=== PATIENT | female | born 1935 | race Caucasian/White ===

== ENCOUNTER 2016-10-18 12:11 | Outpatient (CLI) | payer MEDICARE, OTHER ==
--- NOTE | 2016-10-18 17:07 | Mammography Report ---
DIGITAL DIAGNOSTIC BILATERAL MAMMOGRAM: 10/18/2016 CLINICAL INDICATION: Right breast pain. The patient described the pain as radiating from the fingers throughout the lateral right breast, so no marker was placed. TECHNIQUE: Bilateral CC, MLO, right true lateral views. COMPARISON: 10/16/2014 The breasts demonstrate scattered fibroglandular densities bilaterally. Coarse and punctate, typical ly benign calcifications are present. No suspicious masses, clustered microcalcifications, or region s of architectural distortion are identified. IMPRESSION: BENIGN FINDINGS. RECOMMENDATION: ROUTINE ANNUAL SCREENING UNLESS OTHERWISE CLINICALLY INDICATED. BIRADS CATEGORY: 2, BENIGN FINDINGS. STANDARD QUALIFYING STATEMENTS 1. This examination was reviewed with the aid of Computed-Aided Detection (CAD). 2. A negative or benign imaging report should not delay biopsy if clinically suspicious findings are present. Consider surgical consultation if warranted. More than 5% of cancers are not identified b y imaging. 3. Dense breasts may obscure an underlying neoplasm. JOB #: [id number] EXT JOB #:[id number]
== END 2016-10-18 12:12 | disposition home or self-care (01) ==
LOC: DI 12:11
PROVIDERS: ATTEND Internal Medicine
DX: N64.4 Mastodynia (principal)
CPT/HCPCS: 77066

== ENCOUNTER 2016-11-06 06:50 | Outpatient (CLI) | payer MEDICARE, OTHER | END 2016-11-06 06:51 | disposition home or self-care (01) | LOC: EMS 06:50 | PROVIDERS: ATTEND Surgery | DX: S09.90XA Unspecified injury of head, initial encounter (principal); W01.198A Fall on same level from slipping, tripping and stumbling with subsequent striking against other object, initial encounter; Y92.012 Bathroom of single-family (private) house as the place of occurrence of the external cause | CPT/HCPCS: A0425; A0429 ==

== ENCOUNTER 2016-11-06 07:06 | Emergency (ER) | payer MEDICARE, OTHER ==
--- NOTE | 2016-11-06 07:19 | ED Physician Documentation ---
PD HPI Fall - Stated complaint Stated Complaint: GLF - Chief complaint Chief Complaint: Ext Problem - History obtained from History obtained from: Patient - History of Present Illness Mechanism of injury: Slipped Fall distance: Standing position Where injury occurred: Home Timing - onset: Today Injury(ies) location: Head, Neck, Left Uppper Extremity Quality of pain: Pain, Throbbing Associated symptoms: Neck pain. No: LOC, AMS, Amnesia, Seizures, Ear drainage, Weakness, Paresthesias, Dyspnea, Nausea / vomiting, Hematemesis, Abdominal distension Symptoms improve with: Rest, Position Worsens with: Movement, Palpation Contributing factors: Other (on plavix). No: Anticoagulated Similar symptoms before: Diagnosis (distal radius fracture) Recently seen: Not recently seen - Additional information Additional information: 81 y/o female got up to go to the bathroom and fell while she was pulling up her nightgown and fell onto the left side of her face and onto her lft wrist. She had no LOC, she does have a stiff neck and she has pain in the left wrist. Review of Systems Constitutional: denies: Fever Eyes: denies: Decreased vision Ears: denies: Ear pain Nose: denies: Congestion Throat: denies: Sore throat Cardiac: denies: Chest pain / pressure Respiratory: denies: Dyspnea, Cough GI: denies: Abdominal Pain, Nausea, Vomiting : denies: Dysuria, Frequency Skin: denies: Rash Musculoskeletal: reports: Neck pain, Extremity pain, Joint pain, Joint swelling. denies: Back pain Neurologic: denies: Generalized weakness, Focal weakness, Numbness PD PAST MEDICAL HISTORY - Past Medical History Cardiovascular: Hypertension, Atrial fibrillation Respiratory: None Neuro: Parkinson's, Other Endocrine/Autoimmune: None GI: None GLOBAL MANAGER: None : None HEENT: None Musculoskeletal: Osteoarthritis Derm: None - Past Surgical History General: Cholecystectomy, Appendectomy HEENT: Tonsil/Adenoidectomy - Present Medications Home Medications: Ambulatory Orders Medication Instructions Recorded Confirmed Acetaminophen with Codeine 0 ml PO Q6HR 09/16/15 11/06/16 [Acetamin-Codein 300-30 mg/12.5] Ascorbic Acid [Vitamin C] 500 mg PO DAILY 09/16/15 11/06/16 Carbidopa/Levodopa 1 tab PO TID 09/16/15 11/06/16 [Carbidopa-Levodopa 25-100 Tab] Cholecalciferol [Vitamin D3] 400 mg ORAL DAILY 09/16/15 11/06/16 Potassium Chloride [Klor-Con M20] 20 meq PO DAILY 09/16/15 11/06/16 Propranolol [Inderal] 10 mg ORAL DAILY 09/16/15 11/06/16 amLODIPine [Norvasc] 2.5 mg PO DAILY 09/16/15 11/06/16 Acetaminophen 500 mg PO DAILY 12/13/15 11/06/16 Cetirizine [ZyrTEC] 10 mg PO DAILY 12/13/15 11/06/16 Clopidogrel [Plavix] 75 mg PO DAILY 12/13/15 11/06/16 Diazepam 5 mg PO Q6HR 12/13/15 11/06/16 Furosemide 20 mg PO DAILY 12/13/15 11/06/16 Lisinopril 5 mg PO DAILY 12/13/15 11/06/16 Acetaminophen/Cod 300/30 [Tylenol 1 each PO Q4-6H PRN #20 tablet 11/06/16 #3] - Allergies Allergies/Adverse Reactions: Allergies Allergy/AdvReac Type Severity Reaction Status Date / Time adhesive tape Allergy Unknown Verified 09/16/15 12:22 aspirin Allergy Unknown Verified 09/16/15 12:22 gabapentin [From Neurontin] Allergy Unknown Verified 09/16/15 12:22 hydromorphone Allergy Unknown Verified 09/16/15 12:22 morphine Allergy Unknown Verified 09/16/15 12:22 Sulfa (Sulfonamide Allergy Unknown Verified 09/16/15 12:22 Antibiotics) - Social History Does the pt smoke?: No Smoking Status: Unknown if ever smoked Does the pt drink ETOH?: No Does the pt have substance abuse?: No - Immunizations Immunizations are current?: Yes - POLST Patient has POLST: Yes PD ED PE NORMAL - Vitals Vital signs reviewed: Yes (hypertension ) - General General: No acute distress, Well developed/nourished - HEENT HEENT: PERRL, EOMI - Neck Neck: Other (The neck is "stiff" and without bony tenderness) - Cardiac Cardiac: RRR, No murmur - Respiratory Respiratory: No respiratory distress, Clear bilaterally - Abdomen Abdomen: Soft, Non tender - Back Back: No CVA TTP - Derm Derm: Normal color, Warm and dry, No rash - Extremities Extremities: Other (There is trace edema bilaterally with superficial erythema. There is tenderness to the dorsal wrist on the left with swelling and decreased ROM. ) - Neuro Neuro: No motor deficit, No sensory deficit - Psych Psych: Normal mood, Normal affect Results - Vitals Vitals: Vital Signs - 24 hr 11/06/16 11/06/16 07:08 10:44 Temperature 36.1 C L Heart Rate 68 71 Respiratory 18 16 Rate Blood Pressure 161/129 H 158/91 H O2 Saturation 98 95 Oxygen O2 Source Room air - Labs Labs: Laboratory Tests 11/06/16 08:15 Urine Color YELLOW Urine Clarity CLEAR Urine pH 5.5 Ur Specific Blevins 1.010 Urine Protein NEGATIVE Urine Glucose (UA) NEGATIVE Urine Ketones NEGATIVE Urine Occult Blood NEGATIVE Urine Nitrite NEGATIVE Urine Bilirubin NEGATIVE Urine Urobilinogen 0.2 (NORMAL) Ur Leukocyte Esterase NEGATIVE Ur Microscopic Review NOT INDICATED Urine Culture Comments NOT INDICATED - Rads (name of study) CT head without Radiology: Prelim report reviewed (Impression: 1. No acute intracranial abnormality. Specifically, no evidence of intracranial hemorrhage or fracture. 2. Chronic sinusitis of the right maxillary sinus.), EMP read indepedently, See rad report Cervical spine without Radiology: Prelim report reviewed (Impression: no acute fracture or malalginment. 2. Degenerative changes result in the following: C2-C3 mild to moderate narrowing of the neural foraminal bilaterally. C3-C4 mild narrowing of the neural foraminal bilaterally C4-C5 mild narrowing of the neural foraminal bilaterally C5-C6 mild narrowing of the bony central canal. Moderate narrowing of the right neural foramen and mild narrowing on the left. 3. Evidence of solid bony fusion at C3-4 and C5-6.), EMP read indepedently, See rad report lft hand Radiology: Prelim report reviewed (Impression: 1. Acute, oblique fractures of left third metacarpal and distal fifth metacarpal diaphyses with mild displacement. 2. Question of nondisplaced mid to distal fourth metacarpal diaphyseal fracture. 3. Old ulnar styloid avulsion. 4. Diffuse osteopenia. 5. Degenerative changes.) hips and pelvis Radiology: Prelim report reviewed (Impression: 1. Bilateral hip and lower lumbar spine degenerative changes. 2. No fracture demonstrated.) Left wrist Radiology: Prelim report reviewed (Impression: 1. Acute, oblique fractures of the left third and fifth metacarpal diaphyses with mild displaced. 2. Question nondisplaced fourth metacarpal diaphyseal fracture. 2. Old ulnar styloid avulsion. 4. Degenerative changes.), EMP read indepedently, See rad report Procedures - Splint (location) Left hand Splint applied by: Tech Type of splint: Fiberglass, Volar cock up Other: Patient tolerated well, No complications, Neurovascular intact, Good alignment PD MEDICAL DECISION MAKING - ED course Complexity details: reviewed old records, reviewed results, re-evaluated patient , considered differential, d/w patient, d/w family ED course: 81 y/o female with a FOOSH has a hand fracture and she is placed into a splint to followup with her orthopod. Departure - Departure Disposition: 01 Home, Self Care Clinical Impression: Hand fracture, left Qualifiers: Encounter type: initial encounter Fracture type: closed Qualified Code(s): S62.92XA - Unspecified fracture of left wrist and hand, initial encounter for closed fracture Condition: Stable Instructions: ED Fx Hand Closed Follow-Up: Sean Waldron MD [Primary Care Provider] - SCOTTY SPANGLER [Physician No Access] - Prescriptions: Acetaminophen/Cod 300/30 [Tylenol #3] 1 each PO Q4-6H PRN #20 tablet PRN Reason: Pain Discharge Date/Time: 11/06/16 10:45
--- NOTE | 2016-11-06 08:00 | CT Preliminary Report ---
Exam: CT Head W/O IMPRESSION: 1. No acute intracranial abnormality. Specifically, no evidence of intracranial hemorrhage or fractur e. 2. Chronic sinusitis of the right mastoid sinus. [facility] SITE ID: [id number]
--- NOTE | 2016-11-06 08:03 | CT Report ---
EXAM: CT HEAD EXAM DATE: 11/06/2016 07:37 AM. CLINICAL HISTORY: 81-year-old woman status post fall with head injury. COMPARISON: None. TECHNIQUE: Multiaxial CT images were obtained from the foramen magnum to the vertex. IV contrast: Non e. Reformats: Coronal. In accordance with CT protocol optimization, one or more of the following dose reduction techniques w ere utilized for this exam: automated exposure control, adjustment of mA and/or KV based on patient s ize, or use of iterative reconstructive technique. FINDINGS: Parenchyma: No evidence of acute infarct, hemorrhage, or mass lesion. The operating room and demonstr ate mild periventricular hypoattenuation, a common finding in this age group. Ventricles and Extra-axial Spaces: Ventricles are symmetric and normal in size. CSF density extra-axi al spaces are prominent along the frontal lobes, greatest along the right anterior falx, consistent w ith cerebral volume loss and possibly underlying arachnoid cyst. No evidence of hemorrhage. Orbits: Unremarkable. Sinuses: The right maxillary sinus demonstrate mucosal thickening with hyperdense material and surrou nding hyperostosis, most consistent with chronic sinusitis and inspissated secretions or possibly fun gal infection. The remaining paranasal sinuses and mastoid air cells are clear. Extracranial Soft Tissues and Bones: Soft tissues are unremarkable. No fractures. IMPRESSION: 1. No acute intracranial abnormality. Specifically, no evidence of intracranial hemorrhage or fractur e. 2. Chronic sinusitis of the right mastoid sinus. [facility] Referring Provider Line: [phone] SITE ID: [id number]
--- NOTE | 2016-11-06 08:16 | CT Report ---
EXAM: CT CERVICAL SPINE WITHOUT CONTRAST DATE: 11/06/2016 07:43 AM HISTORY: 81-year-old woman status post fall with head injury and neck pain . COMPARISONS: None. TECHNIQUE: Thin-section axial images were acquired of the cervical spine without contrast. Post-proce ssing: Coronal and sagittal reformats. Other: None. In accordance with CT protocol optimization, one or more of the following dose reduction techniques w ere utilized for this exam: automated exposure control, adjustment of mA and/or KV based on patient s ize, or use of iterative reconstructive technique. FINDINGS: Alignment: No acute malalignment. Mild convex right curvature is present. No significant spondylolist hesis. Bones: No fracture or bone lesion. There is evidence of solid bony fusion of the posterior elements o f C3-C4 and across the disk space and right facet at C5-C6. Interspace Levels/Facets: C1-C2: Unremarkable. C2-C3: No significant central canal stenosis. Uncovertebral hypertrophy and facet hypertrophy result in mild to moderate narrowing of the neural foramina bilaterally. C3-C4: No significant central canal stenosis. Mild uncovertebral hypertrophy and prominent facet hype rtrophy result in mild narrowing of the neural foramina bilaterally. C4-C5: No significant central canal stenosis. Mild uncovertebral hypertrophy and prominent facet hype rtrophy result in mild narrowing of the neural foramina bilaterally. C5-C6: There is bony fusion across the disk space. Posterior osteophyte results in mild narrowing of the bony central canal. Uncovertebral hypertrophy and prominent facet hypertrophy result in moderate narrowing of the right neural foramen and mild narrowing on the left. C6-C7: Facet hypertrophy and uncovertebral hypertrophy are present without significant narrowing of t he bony central canal and neural foramina. C7-T1: Unremarkable. Musculature: Normal. No fatty atrophy. Other: The paravertebral and prevertebral soft tissues are normal. The lung apices are clear. IMPRESSION: 1. No acute fracture or malalignment. 2. Degenerative changes result in the following: -C2-C3: Mild/moderate narrowing of the neural foramina bilaterally. -C3-C4: Mild narrowing of the neural foramina bilaterally. -C4-C5: Mild narrowing of the neural foramina bilaterally. -C5-C6: Mild narrowing of the bony central canal. Moderate narrowing of the right neural foramen and mild narrowing on the left. 3. Evidence of solid bony fusion at C3-C4 and C5-C6. [facility] Referring Provider Line: [phone] SITE ID: [id number]
[2016-11-06 08:28] LABS: BILIRUBIN,URINE NEGATIVE (NEGATIVE); PH,URINE 5.5 PH (5.0-7.5)
[2016-11-06 08:30] LABS: UA CHARGE (STRIP ONLY) YES; UR CULTURE IF IND NOT INDICATED
--- NOTE | 2016-11-06 08:41 | XRAY Preliminary Report ---
Exam: XR Wrist 4 View LT IMPRESSION: 1. Acute, oblique fractures of left third and fifth metacarpal diaphyses with mild displacement. 2. Question nondisplaced fourth metacarpal diaphyseal fracture. 3. Old ulnar styloid avulsion. 4. Degenerative changes. [facility] SITE ID: [id number]
--- NOTE | 2016-11-06 08:44 | XRAY Report ---
EXAM: LEFT WRIST RADIOGRAPHY EXAM DATE: 11/06/2016 08:15 AM. CLINICAL HISTORY: Fall wrist pain . COMPARISON: None. TECHNIQUE: 4 views. FINDINGS: Bones: Probable old nondisplaced ulnar styloid avulsion. Acute, oblique fractures of the left third and fifth metacarpal diaphyses with mild displacement. Que stion nondisplaced fourth metacarpal diaphyseal fracture. Joints: Narrowing of scaphomultangular joint space. Spurs along first carpometacarpal joint space. Soft Tissues: TFCC calcification. IMPRESSION: 1. Acute, oblique fractures of left third and fifth metacarpal diaphyses with mild displacement. 2. Question nondisplaced fourth metacarpal diaphyseal fracture. 3. Old ulnar styloid avulsion. 4. Degenerative changes. [facility] Referring Provider Line: [phone] SITE ID: [id number]
--- NOTE | 2016-11-06 08:50 | XRAY Preliminary Report ---
Exam: XR Hand 3 View LT IMPRESSION: 1. Acute, oblique fractures of left mid third metacarpal and distal fifth metacarpal diaphyses with m ild displacement. 2. Question nondisplaced mid to distal fourth metacarpal diaphyseal fracture. 3. Old ulnar styloid avulsion. 4. Diffuse osteopenia. 5. Degenerative changes. [facility] SITE ID: [id number]
--- NOTE | 2016-11-06 08:53 | XRAY Report ---
EXAM: LEFT HAND RADIOGRAPHY EXAM DATE: 11/06/2016 08:15 AM. CLINICAL HISTORY: Fall middle finger pain. COMPARISON: None. TECHNIQUE: 3 views. FINDINGS: Bones: Oblique fractures of the left mid third metacarpal and distal fifth metacarpal diaphyses wit h mild displacement. Question nondisplaced fourth metacarpal diaphyseal fracture. Diffuse osteopenia. Probable old ulnar styloid avulsion. Joints: Degenerative changes of left first carpometacarpal and first carpal metacarpal joints, with j oint space narrowing and subchondral sclerosis. First CMC osteophytes. Narrowing of scaphomultangular joint. Soft Tissues: Diffuse left hand soft tissue swelling. IMPRESSION: 1. Acute, oblique fractures of left mid third metacarpal and distal fifth metacarpal diaphyses with m ild displacement. 2. Question nondisplaced mid to distal fourth metacarpal diaphyseal fracture. 3. Old ulnar styloid avulsion. 4. Diffuse osteopenia. 5. Degenerative changes. [facility] Referring Provider Line: [phone] SITE ID: [id number]
--- NOTE | 2016-11-06 08:55 | XRAY Preliminary Report ---
Exam: XR Hip w/Pelvis 2-3V LT IMPRESSION: 1. Bilateral hip and lower lumbar spine degenerative changes. 2. No fracture demonstrated. [facility] SITE ID: [id number]
--- NOTE | 2016-11-06 08:57 | XRAY Report ---
EXAM: LEFT HIP AND PELVIS RADIOGRAPHY EXAM DATE: 11/06/2016 08:15 AM. HISTORY: Fall this morning with left groin pain . COMPARISONS: None. TECHNIQUE: 1 view of the pelvis and 1 view of the hip. FINDINGS: Bones: No fracture demonstrated. Joints: At least mild bilateral hip joint space narrowing. No dislocation. Loss of disk space height in visualized lower lumbar spine. Soft Tissues: Normal. No soft tissue swelling. IMPRESSION: 1. Bilateral hip and lower lumbar spine degenerative changes. 2. No fracture demonstrated. [facility] Referring Provider Line: [phone] SITE ID: [id number]
[2016-11-06] MEDS ORDERED: ACETAMINOPHEN/CODEINE 300 MG/30 MG TABLET PO STA (10:37)
[2016-11-06] MEDS ORDERED: ACETAMINOPHEN/CODEINE 300 MG/30 MG TABLET PO ONE (10:41)
[2016-11-06 10:45] VITALS: BP 158/91
== END 2016-11-06 10:45 | disposition home or self-care (01) ==
LOC: ED 07:06
DX: S62.393A Other fracture of third metacarpal bone, left hand, initial encounter for closed fracture (principal); S62.395A Other fracture of fourth metacarpal bone, left hand, initial encounter for closed fracture; S62.397A Other fracture of fifth metacarpal bone, left hand, initial encounter for closed fracture; W01.0XXA Fall on same level from slipping, tripping and stumbling without subsequent striking against object, initial encounter; Y92.018 Other place in single-family (private) house as the place of occurrence of the external cause; I10 Essential (primary) hypertension; I48.91 Unspecified atrial fibrillation; G20 Parkinson's disease; M19.90 Unspecified osteoarthritis, unspecified site
CPT/HCPCS: 29125; 51701; 70450; 72125; 73110; 73130; 73502; 81003; 99283; 99284; A9270; 81001; 87086

== ENCOUNTER 2016-11-15 11:41 | Outpatient (CLI) | payer MEDICARE, OTHER ==
--- NOTE | 2016-11-15 13:57 | XRAY Report ---
LEFT HIP AND PELVIS: 11/15/2016 CLINICAL INDICATION: Fall, pain. FINDINGS: Frontal view of the hips and pelvis and cross-table lateral view of the left hip were obta ined. Cross-table lateral view was suboptimal, due to body habitus. Mild osteoarthritis is present. T here is no evidence of fracture or dislocation on the views provided. The visualized bowel gas patter n is unremarkable. IMPRESSION: MILD OSTEOARTHRITIS. JOB #: [id number] EXT JOB #:[id number]
== END 2016-11-15 11:42 | disposition home or self-care (01) ==
LOC: DI 11:41
PROVIDERS: ATTEND Physician Assistant Medical
DX: M16.12 Unilateral primary osteoarthritis, left hip (principal)

== ENCOUNTER 2016-12-10 21:21 | Outpatient (CLI) | payer MEDICARE, OTHER | END 2016-12-10 23:59 | disposition EMS.NT | LOC: EMS 21:21 | PROVIDERS: ATTEND Surgery | DX: Z03.89 Encounter for observation for other suspected diseases and conditions ruled out (principal) ==

== ENCOUNTER 2016-12-28 09:10 | Outpatient (CLI) | payer MEDICARE, OTHER | END 2016-12-28 09:11 | disposition critical access hospital (66) | LOC: EMS 09:10 | PROVIDERS: ATTEND Surgery | DX: R53.83 Other fatigue (principal); R47.81 Slurred speech | CPT/HCPCS: A0425; A0429 ==

== ENCOUNTER 2016-12-28 09:24 | Emergency (ER) | payer MEDICARE, OTHER ==
--- NOTE | 2016-12-28 09:35 | ED Physician Documentation ---
PD HPI FOCAL NEURO - Stated complaint Stated Complaint: STROKE LIKE SYMPTOMS - Chief complaint Chief Complaint: Neuro - History obtained from History obtained from: Patient, EMS - History of Present Illness Timing - onset: Today Timing - duration: Hours Timing - details: Gradual onset, Now resolved Severity of deficit: Moderate Weakness: No: Face, Arm, Hand, Leg, Foot, Right, Left Numbness: No: Face, Arm, Hand, Leg, Foot, Right, Left Associated symptoms: No: Headache, Nausea / vomiting, Seizure, Syncope, Fall, Head injury, Chest pain, Neck pain, Back pain, Fever Contributing factors: negative: Anticoagulated Baseline status: positive: A&OX3, ambulatory, indep Similar symptoms before: Has not had sx before Recently seen: Other (recently started new medication.) - Additional information Additional information: 81-year-old female was in her usual state yesterday when she awoke this morning she had some slurred speech and has resolved in route to the hospital. She has recently had a medication change 1 of her Parkinson's medicines with a titrating up on the dose. She did not feel that she was having problems with this medicine prior to this episode today. She does appear to have recovered completely and there is no evidence of residual effect. Review of Systems Constitutional: reports: Fatigue. denies: Fever, Chills Eyes: denies: Decreased vision Ears: denies: Ear pain Nose: denies: Congestion Throat: denies: Sore throat Cardiac: denies: Chest pain / pressure, Palpitations Respiratory: denies: Dyspnea, Cough GI: denies: Abdominal Swelling, Nausea, Vomiting, Constipation, Diarrhea : denies: Dysuria, Frequency Skin: denies: Rash Musculoskeletal: denies: Neck pain, Back pain Neurologic: reports: Generalized weakness, Difficulty speaking, Altered mental status. 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 : None HEENT: None Musculoskeletal: Osteoarthritis Derm: None - Past Surgical History General: Cholecystectomy, Appendectomy HEENT: Tonsil/Adenoidectomy - Present Medications Home Medications: Ambulatory Orders Medication Instructions Recorded Confirmed Acetaminophen with Codeine 0 ml PO Q6HR 09/16/15 11/06/16 [Acetamin-Codein 300-30 mg/12.5] Ascorbic Acid [Vitamin C] 500 mg PO DAILY 09/16/15 11/06/16 Carbidopa/Levodopa 1 tab PO TID 09/16/15 11/06/16 [Carbidopa-Levodopa 25-100 Tab] Cholecalciferol [Vitamin D3] 400 mg ORAL DAILY 09/16/15 11/06/16 Potassium Chloride [Klor-Con M20] 20 meq PO DAILY 09/16/15 11/06/16 Propranolol [Inderal] 10 mg ORAL DAILY 09/16/15 11/06/16 amLODIPine [Norvasc] 2.5 mg PO DAILY 09/16/15 11/06/16 Acetaminophen 500 mg PO DAILY 12/13/15 11/06/16 Cetirizine [ZyrTEC] 10 mg PO DAILY 12/13/15 11/06/16 Clopidogrel [Plavix] 75 mg PO DAILY 12/13/15 11/06/16 Diazepam 5 mg PO Q6HR 12/13/15 11/06/16 Furosemide 20 mg PO DAILY 12/13/15 11/06/16 Lisinopril 5 mg PO DAILY 12/13/15 11/06/16 Acetaminophen/Cod 300/30 [Tylenol 1 each PO Q4-6H PRN #20 tablet 11/06/16 #3] Ciprofloxacin HCl [Cipro] 500 mg PO BID #14 tablet 12/28/16 - Allergies Allergies/Adverse Reactions: Allergies Allergy/AdvReac Type Severity Reaction Status Date / Time adhesive tape Allergy Unknown Verified 09/16/15 12:22 aspirin Allergy Unknown Verified 09/16/15 12:22 gabapentin [From Neurontin] Allergy Unknown Verified 09/16/15 12:22 hydromorphone Allergy Unknown Verified 09/16/15 12:22 morphine Allergy Unknown Verified 09/16/15 12:22 Sulfa (Sulfonamide Allergy Unknown Verified 09/16/15 12:22 Antibiotics) - Social History Does the pt smoke?: No Smoking Status: Unknown if ever smoked Does the pt drink ETOH?: No Does the pt have substance abuse?: No - Immunizations Immunizations are current?: Yes - POLST Patient has POLST: Yes PD ED PE NORMAL - Vitals Vital signs reviewed: Yes (hypertensive ) - General General: Alert and oriented X 3, No acute distress, Well developed/nourished - HEENT HEENT: Atraumatic, PERRL, EOMI - Neck Neck: Supple, no meningeal sign - Cardiac Cardiac: RRR, No murmur - Respiratory Respiratory: No respiratory distress, Clear bilaterally - Abdomen Abdomen: Soft, Non tender NIHSS - Level of Consciousness Level of consciousness: (0) Alert, Keenly responsive LOC Questions: (0) Answers both Q's correct LOC Commands: (0) Performs both correctly - Gaze Best Gaze: (0) Normal - Visual Visual: (0) No loss - Facial Palsy Facial Palsy: (0) Normal, symmetrical movement - Motor Arms (both separate) Motor Arm (right): (0) No drift Motor Arm (left): (0) No drift - Motor Legs (both separate) Motor Leg (right): (0) No drift Motor Leg (left): (0) No drift - Limb Ataxia Limb Ataxia: (0) Absent - Sensory Sensory: (0) Normal - Best Language Best Language: (0) No aphasia - Dysarthria Dysarthria: (0) Normal - Extinction and Inattention (formally neg Extinction and inattention: (0) No abnormality - Total Score/Results Total Score/Result: 0 Results - Vitals Vitals: Vital Signs - 24 hr 12/28/16 12/28/16 09:30 12:53 Temperature 36.8 C Heart Rate 70 71 Respiratory 18 19 Rate Blood Pressure 180/94 H 140/58 H O2 Saturation 98 96 Oxygen O2 Source Room air - EKG (time done) 0959 Rate: Rate (enter#) (62) Rhythm: NSR Other comments: Other comments (There is excessive artifact from the tremor of Parkinsons making the tracing uninterpretable. ) Compare to prior EKG: Old EKG unavailable Computer interpretation: Agree with computer - Labs Labs: Laboratory Tests 12/28/16 12/28/16 12/28/16 09:45 09:50 09:50 WBC 6.7 RBC 4.37 Hgb 12.4 Hct 37.5 MCV 85.8 MCH 28.3 MCHC 33.0 RDW 14.6 Plt Count 240 MPV 7.4 L Neut # 3.8 Lymph # 2.1 [place] # 0.6 Eos # 0.2 Baso # 0.0 Absolute Nucleated RBC 0.00 Nucleated RBCs 0.1 Sodium 140 Potassium 4.3 Chloride 103 Carbon Dioxide 29 Anion Gap 8.0 BUN 29 H Creatinine 1.4 H Estimated GFR (MDRD) 36 L Glucose 100 Calcium 9.4 Total Bilirubin 0.4 AST 14 ALT < 10 L Alkaline Phosphatase 75 Troponin I Total Protein 7.0 Albumin 3.9 Globulin 3.1 Albumin/Globulin Ratio 1.3 Lipase 16 L Urine Color YELLOW Urine Clarity HAZY Urine pH 6.0 Ur Specific [place] 1.010 Urine Protein NEGATIVE Urine Glucose (UA) NEGATIVE Urine Ketones NEGATIVE Urine Occult Blood NEGATIVE Urine Nitrite NEGATIVE Urine Bilirubin NEGATIVE Urine Urobilinogen 0.2 (NORMAL) Ur Leukocyte Esterase SMALL H Urine RBC 0-5 Urine WBC 6-10 H Ur Squamous Epith Cells FEW Squamous Urine Bacteria Many H Ur Microscopic Review INDICATED Urine Culture Comments INDICATED 12/28/16 09:50 WBC RBC Hgb Hct MCV MCH MCHC RDW Plt Count MPV Neut # Lymph # [place] # Eos # Baso # Absolute Nucleated RBC Nucleated RBCs Sodium Potassium Chloride Carbon Dioxide Anion Gap BUN Creatinine Estimated GFR (MDRD) Glucose Calcium Total Bilirubin AST ALT Alkaline Phosphatase Troponin I < 0.04 Total Protein Albumin Globulin Albumin/Globulin Ratio Lipase Urine Color Urine Clarity Urine pH Ur Specific [place] Urine Protein Urine Glucose (UA) Urine Ketones Urine Occult Blood Urine Nitrite Urine Bilirubin Urine Urobilinogen Ur Leukocyte Esterase Urine RBC Urine WBC Ur Squamous Epith Cells Urine Bacteria Ur Microscopic Review Urine Culture Comments Procedures - IVC sono (time) 0945 Bedside IVC sono: IVC measures (cm) (1.77), IVC collapsed c insp (cm) (0.82) PD MEDICAL DECISION MAKING - ED course Complexity details: reviewed results, re-evaluated patient, considered differential, d/w patient, d/w family ED course: 81-year-old female with some dysarthria on awakening this morning is now normal and she is found to have urinary tract infection. This is treated in the emergency department with 1 g of Rocephin intravenously she does not have other signs to be concerned about sepsis. And she does want to go home. This does seem reasonable. Her last 3 cultures here grew out organisms sensitive to cipro. One grew out resistant to septra. We will put her on cipro. Departure - Departure Disposition: 01 Home, Self Care Clinical Impression: Parkinsons disease Urinary tract infection Qualifiers: Urinary tract infection type: acute cystitis Hematuria presence: without hematuria Qualified Code(s): N30.00 - Acute cystitis without hematuria Condition: Stable Instructions: ED UTI Cystitis Female Follow-Up: Sean Waldron MD [Primary Care Provider] - Prescriptions: Ciprofloxacin HCl [Cipro] 500 mg PO BID #14 tablet
[2016-12-28 09:55] LABS: BASOPHILS % (AUTO) 0.6 %; EOSINOPHILS # (AUTO) 0.2 10^3/uL (0.0-0.7); EOSINOPHILS % (AUTO) 2.7 %; HCT - HEMATOCRIT 37.5 % (37.0-47.0); HGB - HEMOGLOBIN 12.4 g/dL (12.0-16.0); LYMPHOCYTES # (AUTO) 2.1 10^3/uL (1.5-3.5); LYMPHOCYTES % (AUTO) 31.3 %; MEAN CORPUSCULAR HEMOGLOBIN 28.3 pg (27.0-31.0); MEAN CORPUSCULAR VOLUME 85.8 fL (81.0-99.0); MEAN PLATELET VOLUME 7.4 fL (7.9-10.8); MONOCYTES # (AUTO) 0.6 10^3/uL (0.0-1.0); MONOCYTES % (AUTO) 8.9 %; NEUTROPHILS # (AUTO) 3.8 10^3/uL (1.5-6.6); NEUTROPHILS % (AUTO) 56.5 %; NUCLEATED RED BLOOD CELLS AUTO 0.1 /100WBC; RED BLOOD COUNT 4.37 10^6/uL (4.20-5.40); RED CELL DISTRIBUTION WIDTH 14.6 % (12.0-15.0); UNCORRECTED WHITE BLOOD COUNT 6.7 x10^3/uL; WHITE BLOOD COUNT 6.7 x10^3/uL (4.8-10.8)
[2016-12-28 10:08] LABS: ALBUMIN/GLOBULIN RATIO 1.3 (1.0-2.2); BILIRUBIN,TOTAL 0.4 mg/dL (0.2-1.0); BUN - BLOOD UREA NITROGEN 29 mg/dL (6-20); CALCIUM 9.4 mg/dL (8.5-10.3); CARBON DIOXIDE - CO2 29 mmol/L (21-32); CHLORIDE 103 mmol/L (101-111); CREATININE 1.4 mg/dL (0.4-1.0); GFR - MDRD 36 (>89); GLUCOSE 100 mg/dL (70-100); LIPASE 16 U/L (22-51); POTASSIUM 4.3 mmol/L (3.5-5.0); SODIUM 140 mmol/L (135-145)
[2016-12-28 10:09] LABS: BILIRUBIN,URINE NEGATIVE (NEGATIVE)
[2016-12-28 10:21] LABS: UA w/ MICROSCOPIC CHARGE YES
[2016-12-28 10:25] LABS: UR CULTURE IF IND INDICATED
[2016-12-28] MEDS ORDERED: cefTRIAXone 1 GM in SODIUM CHLORIDE 0.9% MINIBAG 100 ML IV STA (10:53)
[2016-12-28] MEDS ORDERED: TETANUS/DIPHTHERIA/PERTUSSIS 0.5 ML SYRINGE IM ONE (10:56)
--- NOTE | 2016-12-28 10:58 | CT Preliminary Report ---
Exam: CT Head W/O IMPRESSION: 1. No acute intracranial abnormality identified. No significant change from the prior study. [facility] SITE ID: [id number]
--- NOTE | 2016-12-28 11:00 | CT Report ---
EXAM: CT HEAD EXAM DATE: 12/28/2016 10:41 AM. CLINICAL HISTORY: Transient dysarthria. COMPARISON: CT 11/06/2016. TECHNIQUE: Multiaxial CT images were obtained from the foramen magnum to the vertex. IV contrast: Non e. Reformats: Coronal. In accordance with CT protocol optimization, one or more of the following dose reduction techniques w ere utilized for this exam: automated exposure control, adjustment of mA and/or KV based on patient s ize, or use of iterative reconstructive technique. FINDINGS: Parenchyma: Evidence of diffuse parenchymal volume loss and small amount of low attenuation in the pe riventricular white matter. No acute intracranial abnormality identified. No acute hemorrhage, mass e ffect, or midline shift. Extraaxial Spaces: Evidence of diffuse parenchymal volume loss. No acute extra-axial collection. Ventricles: Appropriate in size and configuration for the degree of volume loss. Sinuses: Chronic partially opacified right maxillary sinus again noted, otherwise the visualized para nasal sinuses and mastoid air cells appear well-aerated. Bones: No depressed skull fracture. Other: None. IMPRESSION: 1. No acute intracranial abnormality identified. No significant change from the prior study. [facility] Referring Provider Line: [phone] SITE ID: [id number]
[2016-12-28 14:14] VITALS: BP 135/75
== END 2016-12-28 14:14 | disposition home or self-care (01) ==
LOC: EDUNIT# → ED 09:24
DX: G20 Parkinson's disease (principal); N30.00 Acute cystitis without hematuria; I10 Essential (primary) hypertension; I48.91 Unspecified atrial fibrillation
CPT/HCPCS: 36415; 70450; 80053; 81001; 81003; 83690; 84484; 85025; 87086; 93005; 96374; 99284

== ENCOUNTER 2017-02-08 08:34 | Outpatient (CLI) | payer MEDICARE, OTHER | END 2017-02-08 08:35 | disposition critical access hospital (66) | LOC: EMS 08:34 | PROVIDERS: ATTEND Surgery | DX: R40.4 Transient alteration of awareness (principal) | CPT/HCPCS: A0425; A0427 ==

== ENCOUNTER 2017-02-08 08:48 | Emergency (ER) | payer MEDICARE, OTHER ==
--- NOTE | 2017-02-08 09:01 | ED Physician Documentation ---
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 HEENT: None Musculoskeletal: Osteoarthritis Derm: None - Past Surgical History Past Surgical History: Yes General: Cholecystectomy, Appendectomy HEENT: Tonsil/Adenoidectomy - Present Medications Home Medications: Ambulatory Orders Medication Instructions Recorded Confirmed Acetaminophen with Codeine 0 ml PO Q6HR 09/16/15 11/06/16 [Acetamin-Codein 300-30 mg/12.5] Ascorbic Acid [Vitamin C] 500 mg PO DAILY 09/16/15 11/06/16 Carbidopa/Levodopa 1 tab PO TID 09/16/15 11/06/16 [Carbidopa-Levodopa 25-100 Tab] Cholecalciferol [Vitamin D3] 400 mg ORAL DAILY 09/16/15 11/06/16 Potassium Chloride [Klor-Con M20] 20 meq PO DAILY 09/16/15 11/06/16 Propranolol [Inderal] 10 mg ORAL DAILY 09/16/15 11/06/16 amLODIPine [Norvasc] 2.5 mg PO DAILY 09/16/15 11/06/16 Acetaminophen 500 mg PO DAILY 12/13/15 11/06/16 Cetirizine [ZyrTEC] 10 mg PO DAILY 12/13/15 11/06/16 Clopidogrel [Plavix] 75 mg PO DAILY 12/13/15 11/06/16 Diazepam 5 mg PO Q6HR 12/13/15 11/06/16 Furosemide 20 mg PO DAILY 12/13/15 11/06/16 Lisinopril 5 mg PO DAILY 12/13/15 11/06/16 Acetaminophen/Cod 300/30 [Tylenol 1 each PO Q4-6H PRN #20 tablet 11/06/16 #3] Ciprofloxacin HCl [Cipro] 500 mg PO BID #14 tablet 12/28/16 Cephalexin [Keflex] 500 mg PO Q6H #28 capsule 02/08/17 - Allergies Allergies/Adverse Reactions: Allergies Allergy/AdvReac Type Severity Reaction Status Date / Time adhesive tape Allergy Unknown Verified 09/16/15 12:22 aspirin Allergy Unknown Verified 09/16/15 12:22 gabapentin [From Neurontin] Allergy Unknown Verified 09/16/15 12:22 hydromorphone Allergy Unknown Verified 09/16/15 12:22 morphine Allergy Unknown Verified 09/16/15 12:22 Sulfa (Sulfonamide Allergy Unknown Verified 09/16/15 12:22 Antibiotics) - Social History Does the pt smoke?: No Smoking Status: Unknown if ever smoked Does the pt drink ETOH?: No Does the pt have substance abuse?: No - Immunizations Immunizations are current?: Yes - POLST Patient has POLST: Yes PD ED PE NORMAL - Vitals Vital signs reviewed: Yes - General General: No: Alert and oriented X 3 (X 1 (name)) - HEENT HEENT: PERRL - Neck Neck: Supple, no meningeal sign - Cardiac Cardiac: RRR - Respiratory Respiratory: No respiratory distress, Clear bilaterally - Abdomen Abdomen: Soft, Non tender - Derm Derm: Normal color - Extremities Extremities: No deformity - Neuro Neuro: Other (pt very lethargic but will open eyes to voice and tells me her name, R sided facial droop, slurred speech, PERRL, 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 and 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 from babinski, unable to lift either arm or leg, unable to assess sensation or visual nicolas 2/2 pt lethargy and diff following commands) Results - Vitals Vitals: Vital Signs - 24 hr 02/08/17 02/08/17 02/08/17 08:55 09:44 10:37 Temperature 36.4 C L Heart Rate 67 70 76 Respiratory 18 18 14 Rate Blood Pressure 128/60 150/72 H 131/66 H O2 Saturation 98 99 98 02/08/17 10:51 Temperature Heart Rate 79 Respiratory 18 Rate Blood Pressure 114/50 L O2 Saturation 97 Oxygen O2 Source Room air - EKG (time done) 0925 Rate: Rate (enter#) Rhythm: NSR, Other (PACs) Ischemia: Other (low voltage, no acute ischemia) - Labs Labs: Laboratory Tests 02/08/17 02/08/17 02/08/17 09:23 09:23 09:23 WBC 7.1 RBC 4.20 Hgb 12.2 Hct 36.9 L MCV 87.8 MCH 29.0 MCHC 33.0 RDW 15.6 H Plt Count 227 MPV 7.7 L Neut # 4.1 Lymph # 2.0 [place] # 0.6 Eos # 0.2 Baso # 0.1 Absolute Nucleated RBC 0.00 Nucleated RBCs 0.0 PT 11.0 INR 1.0 APTT 23.7 L Sodium 142 Potassium 4.6 Chloride 104 Carbon Dioxide 30 Anion Gap 8.0 BUN 29 H Creatinine 1.4 H Estimated GFR (MDRD) 36 L Glucose 102 H Calcium 9.5 Urine Color Urine Clarity Urine pH Ur Specific [place] Urine Protein Urine Glucose (UA) Urine Ketones Urine Occult Blood Urine Nitrite Urine Bilirubin Urine Urobilinogen Ur Leukocyte Esterase Urine RBC Urine WBC Ur Squamous Epith Cells Urine Bacteria Ur Microscopic Review Urine Culture Comments 02/08/17 09:36 WBC RBC Hgb Hct MCV MCH MCHC RDW Plt Count MPV Neut # Lymph # [place] # Eos # Baso # Absolute Nucleated RBC Nucleated RBCs PT INR APTT Sodium Potassium Chloride Carbon Dioxide Anion Gap BUN Creatinine Estimated GFR (MDRD) Glucose Calcium Urine Color YELLOW Urine Clarity CLEAR Urine pH 6.5 Ur Specific [place] 1.010 Urine Protein NEGATIVE Urine Glucose (UA) NEGATIVE Urine Ketones NEGATIVE Urine Occult Blood NEGATIVE Urine Nitrite POSITIVE H Urine Bilirubin NEGATIVE Urine Urobilinogen 0.2 (NORMAL) Ur Leukocyte Esterase MODERATE H Urine RBC 0-5 Urine WBC >25 H Ur Squamous Epith Cells FEW Squamous Urine Bacteria Moderate H Ur Microscopic Review INDICATED Urine Culture Comments INDICATED - Rads (name of study) CTH Radiology: See rad report (no bleed, no acute, atrophy) CXR Radiology: See rad report (NACPD) PD MEDICAL DECISION MAKING - ED course ED course: right facial droop, slurred speech AMS neg CT suspect pt had a CVA last nl unknown so not a TPA candidate will admit for MRI tele echo etc already on plavix also a UTI - so possible has AMS due to UTI and pre-existing [place] but that hx is not certain despite attempts to clarify renal insuff not new family arrived pt much better now awake and alert has slight facial asymmetry but family states baseline otherwise nl neruo exam NIHSS now so likely baseline [place] with UTI/lethargy d/w pt and family a) admit for IV ab and perhaps TIA work up b) go home on oral ab to her SNF who can watch her carefully pt and family choose plan B Departure - Departure Disposition: 01 Home, Self Care Clinical Impression: Urinary tract infection Qualifiers: Urinary tract infection type: site unspecified Hematuria presence: without hematuria Qualified Code(s): N39.0 - Urinary tract infection, site not specified Condition: Fair Instructions: ED UTI Cystitis Female Follow-Up: Sean Waldron MD [Primary Care Provider] - Prescriptions: Cephalexin [Keflex] 500 mg PO Q6H #28 capsule Comments: Please follow up with Dr Waldron for a recheck early next week Return if worse And please get your blood pressure rechecked - it was high today Discharge Date/Time: 02/08/17 11:05 NIHSS - Time Time: 08:55 - Level of Consciousness Level of consciousness: (2) Not alert, requires repeated stimulation to attend LOC Questions: (1) Answers one Q correctly LOC Commands: (1) Performs one correctly - Gaze Best Gaze: (0) Normal - Visual Visual: (0) No loss (diff to determine 2/2 lethargy) - Facial Palsy Facial Palsy: (2) Partial paralysis - Motor Arms (both separate) Motor Arm (right): (3) No effort against gravity Motor Arm (left): (3) No effort against gravity - Motor Legs (both separate) Motor Leg (right): (3) No effort against gravity Motor Leg (left): (3) No effort against gravity - Limb Ataxia Limb Ataxia: (2) Present in 2 limbs (cant move limbs to test) - Sensory Sensory: (0) Normal (uanble to assess 2/2 lethergy) - Best Language Best Language: (0) No aphasia (again diff to determine 2/2 lethargy but able to undestand my question and tell me her name) - Dysarthria Dysarthria: (2) Severe dysarthria - Extinction and Inattention (formally neg Extinction and inattention: (0) No abnormality (diff to determine as pt is lethargic) - Total Score/Results Total Score/Result: 22
[2017-02-08 09:30] LABS: BASOPHILS # (AUTO) 0.1 10^3/uL (0.0-0.1); EOSINOPHILS # (AUTO) 0.2 10^3/uL (0.0-0.7); EOSINOPHILS % (AUTO) 3.4 %; HCT - HEMATOCRIT 36.9 % (37.0-47.0); HGB - HEMOGLOBIN 12.2 g/dL (12.0-16.0); LYMPHOCYTES % (AUTO) 28.2 %; MEAN CORPUSCULAR VOLUME 87.8 fL (81.0-99.0); MEAN PLATELET VOLUME 7.7 fL (7.9-10.8); MONOCYTES # (AUTO) 0.6 10^3/uL (0.0-1.0); NEUTROPHILS # (AUTO) 4.1 10^3/uL (1.5-6.6); NEUTROPHILS % (AUTO) 58.4 %; RED CELL DISTRIBUTION WIDTH 15.6 % (12.0-15.0); UNCORRECTED WHITE BLOOD COUNT 7.1 x10^3/uL; WHITE BLOOD COUNT 7.1 x10^3/uL (4.8-10.8)
--- NOTE | 2017-02-08 09:30 | CT Preliminary Report ---
Exam: CT Head W/O IMPRESSION: 1. No acute bleed, no acute infarct. 2. Atrophy [facility] SITE ID: [id number]
--- NOTE | 2017-02-08 09:33 | CT Report ---
EXAM: CT HEAD EXAM DATE: 02/08/2017 09:14 AM. CLINICAL HISTORY: AMS R facial droop slurred speech. COMPARISON: None. TECHNIQUE: Multiaxial CT images were obtained from the foramen magnum to the vertex. IV contrast: Non e. Reformats: Coronal. In accordance with CT protocol optimization, one or more of the following dose reduction techniques w ere utilized for this exam: automated exposure control, adjustment of mA and/or KV based on patient s ize, or use of iterative reconstructive technique. FINDINGS: Parenchyma: No intraparenchymal hemorrhage. No evidence of mass, midline shift, or CT findings of inf arction. Weems-white differentiation is distinct. Extraaxial Spaces: Prominent. No subdural or epidural collections identified. Ventricles: Normal in size and position. Sinuses: Mucosal thickening right maxillary sinus Imaged orbits, and mastoids show no significant a bnormality. Bones: No evidence of fracture or calvarial defect. Other: None. IMPRESSION: 1. No acute bleed, no acute infarct. 2. Atrophy [facility] Referring Provider Line: [phone] SITE ID: [id number]
--- NOTE | 2017-02-08 09:33 | XRAY Preliminary Report ---
Exam: XR Chest 1 View IMPRESSION: Normal single view chest. [facility] SITE ID: [id number]
--- NOTE | 2017-02-08 09:35 | XRAY Report ---
EXAM: CHEST RADIOGRAPHY EXAM DATE: 02/08/2017 09:17 AM. CLINICAL HISTORY: AMS. COMPARISON: None. TECHNIQUE: 1 view. FINDINGS: Lungs/Pleura: No focal opacities evident. No pleural effusion. No pneumothorax. Mediastinum: Within exam limitations, cardiomediastinal contour is normal. Other: None. IMPRESSION: Normal single view chest. [facility] Referring Provider Line: [phone] SITE ID: [id number]
[2017-02-08 09:38] LABS: CALCIUM 9.5 mg/dL (8.5-10.3); CREATININE 1.4 mg/dL (0.4-1.0); POTASSIUM 4.6 mmol/L (3.5-5.0)
[2017-02-08 09:47] LABS: BILIRUBIN,URINE NEGATIVE (NEGATIVE); PH,URINE 6.5 PH (5.0-7.5)
[2017-02-08 09:48] LABS: UA w/ MICROSCOPIC CHARGE YES
[2017-02-08 09:48] LABS: PARTIAL THROMBOPLASTIN TIME 23.7 secs (24.9-33.3)
[2017-02-08 10:03] LABS: WBC,URINE >25 /HPF (0-5)
[2017-02-08 10:04] LABS: UR CULTURE IF IND INDICATED
[2017-02-08] MEDS ORDERED: cefTRIAXone 1 GM in SODIUM CHLORIDE 0.9% MINIBAG 100 ML IV STA (10:07)
[2017-02-08] MEDS ORDERED: cefTRIAXone 1 GM VIAL ONE (10:39)
[2017-02-08 10:55] VITALS: BP 114/50
== END 2017-02-08 11:05 | disposition home or self-care (01) ==
LOC: EDUNIT# → ED 08:48
DX: N39.0 Urinary tract infection, site not specified (principal); I10 Essential (primary) hypertension; I48.91 Unspecified atrial fibrillation; M19.90 Unspecified osteoarthritis, unspecified site
CPT/HCPCS: 36415; 70450; 71010; 80048; 81001; 81003; 85025; 85610; 85730; 87077; 87086; 93005; 96374; 99283; 99284

== ENCOUNTER 2017-04-03 10:44 | Outpatient (CLI) | payer MEDICARE, OTHER, MEDICAID ==
[2017-04-03 11:06] LABS: BASOPHILS # (AUTO) 0.1 10^3/uL (0.0-0.1); BASOPHILS % (AUTO) 0.9 %; EOSINOPHILS # (AUTO) 0.2 10^3/uL (0.0-0.7); HCT - HEMATOCRIT 34.7 % (37.0-47.0); HGB - HEMOGLOBIN 11.5 g/dL (12.0-16.0); LYMPHOCYTES # (AUTO) 1.7 10^3/uL (1.5-3.5); LYMPHOCYTES % (AUTO) 23.7 %; MEAN CORPUSCULAR HEMOGLOBIN 28.9 pg (27.0-31.0); MEAN CORPUSCULAR HGB CONC 33.2 g/dL (32.0-36.0); MEAN CORPUSCULAR VOLUME 87.1 fL (81.0-99.0); MEAN PLATELET VOLUME 7.7 fL (7.9-10.8); MONOCYTES # (AUTO) 0.6 10^3/uL (0.0-1.0); NEUTROPHILS # (AUTO) 4.5 10^3/uL (1.5-6.6); NEUTROPHILS % (AUTO) 63.4 %; RED BLOOD COUNT 3.99 10^6/uL (4.20-5.40); RED CELL DISTRIBUTION WIDTH 14.1 % (12.0-15.0); UNCORRECTED WHITE BLOOD COUNT 7.1 x10^3/uL; WHITE BLOOD COUNT 7.1 x10^3/uL (4.8-10.8)
[2017-04-03 11:26] LABS: ALBUMIN/GLOBULIN RATIO 1.3 (1.0-2.2); BILIRUBIN,TOTAL 0.7 mg/dL (0.2-1.0); BUN - BLOOD UREA NITROGEN 23 mg/dL (6-20); CALCIUM 9.5 mg/dL (8.5-10.3); CARBON DIOXIDE - CO2 28 mmol/L (21-32); CHLORIDE 101 mmol/L (101-111); CREATININE 1.4 mg/dL (0.4-1.0); GFR - MDRD 36 (>89); GLUCOSE 113 mg/dL (70-100); POTASSIUM 3.9 mmol/L (3.5-5.0); SODIUM 138 mmol/L (135-145); TOTAL PROTEIN 7.2 g/dL (6.7-8.2)
--- NOTE | 2017-04-04 08:37 | XRAY Report ---
ABDOMEN RADIOGRAPH: 04/03/2017 COMPARISON STUDY: None. INDICATION: Abdominal pain. TECHNIQUE: Four views of the abdomen. FINDINGS: Normal bowel gas pattern. No evidence of obstruction. No evidence of free air. No gross mass is appreciated. Bones appear grossly unremarkable apart from degenerative changes. There is a calcification overlying the right pelvis of unlikely significance. IMPRESSION: NO ACUTE ABDOMINAL FINDINGS. JOB #: [id number] EXT JOB #:[id number]
== END 2017-04-03 10:45 | disposition home or self-care (01) ==
LOC: LAB 10:44
PROVIDERS: ATTEND Internal Medicine
DX: R10.9 Unspecified abdominal pain (principal)
CPT/HCPCS: 36415; 74020; 80053; 85025; 85651; 86140

== ENCOUNTER 2017-07-10 13:55 | Outpatient (CLI) | payer MEDICARE, OTHER, MEDICAID ==
[2017-07-10 14:17] LABS: CALCIUM 9.7 mg/dL (8.5-10.3); CREATININE 1.5 mg/dL (0.4-1.0)
== END 2017-07-10 13:56 | disposition home or self-care (01) ==
LOC: LAB 13:55
PROVIDERS: ATTEND Internal Medicine
DX: N18.9 Chronic kidney disease, unspecified (principal)
CPT/HCPCS: 36415; 80048

== ENCOUNTER 2017-09-25 16:32 | Outpatient (CLI) | payer MEDICARE, OTHER | END 2017-09-25 16:33 | disposition critical access hospital (66) | LOC: EMS 16:32 | PROVIDERS: ATTEND Surgery | DX: R46.4 Slowness and poor responsiveness (principal); R47.9 Unspecified speech disturbances | CPT/HCPCS: A0425; A0429 ==

== ENCOUNTER 2017-09-25 17:05 | Observation (INO) | payer MEDICARE, OTHER ==
--- NOTE | 2017-09-25 17:46 | ED Physician Documentation ---
PD HPI FOCAL NEURO - Stated complaint Stated Complaint: SLURRED SPEECH - Chief complaint Chief Complaint: Neuro - History obtained from History obtained from: Patient, Family, EMS - History of Present Illness Timing - onset: Other (She got up from a nap and they noticed she was having some dysarthria and word finding difficulty. 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 She has had TIAs before, and is on Plavix for same. There is no headache or chest pain, no trouble breathing. She feels back to normal now.) Review of Systems Ten Systems: 10 systems reviewed and negative Constitutional: denies: Fever, Chills Cardiac: denies: Chest pain / pressure, Palpitations Respiratory: denies: Dyspnea, Cough GI: denies: Abdominal Pain, Nausea PD PAST MEDICAL HISTORY - Past Medical History Cardiovascular: Hypertension, Atrial fibrillation Respiratory: None Neuro: Parkinson's, Other Endocrine/Autoimmune: None GI: None [employer]: None : None HEENT: None Musculoskeletal: Osteoarthritis Derm: None - Past Surgical History Past Surgical History: Yes General: Appendectomy /[employer]: Hysterectomy HEENT: Tonsil/Adenoidectomy - Present Medications Home Medications: Ambulatory Orders Medication Instructions Recorded Confirmed Carbidopa/Levodopa 1 tab PO QID 09/16/15 06/14/17 [Carbidopa-Levodopa 25-100 Tab] Cholecalciferol [Vitamin D3] 400 mg ORAL DAILY 09/16/15 11/06/16 Potassium Chloride [Klor-Con M20] 20 meq PO DAILY 09/16/15 06/14/17 Propranolol [Inderal] 10 mg ORAL DAILY 09/16/15 06/14/17 Clopidogrel [Plavix] 75 mg PO DAILY 12/13/15 06/14/17 Furosemide 20 mg PO DAILY 12/13/15 06/14/17 Lisinopril 5 mg PO DAILY 12/13/15 06/14/17 diazePAM [Diazepam] 5 mg PO QPM 12/13/15 06/14/17 Acetaminophen/Cod 300/30 [Tylenol 1 each PO Q4-6H PRN #20 tablet 11/06/16 #3] Ascorbic Acid 500 mg PO DAILY 06/14/17 06/14/17 Calcium Antacid Chewable 750 mg PO DAILY PRN 06/14/17 06/14/17 Sqcmjqv-Exn-Nzzc-Vit D 1 tab PO TID 06/14/17 06/14/17 Cholecalciferol (Vitamin D3) 400 unit PO DAILY 06/14/17 06/14/17 [Vitamin D3] D-Mannose 2,000 mg PO BID 06/14/17 06/14/17 Diphenhydramine HCl [Nighttime 25 mg PO QPM 06/14/17 06/14/17 Sleep Aid] Glycerin Adult Supp [Glycerin 1 supp IA DAILY PRN 06/14/17 06/14/17 Adult Supp] Loperamide [Imodium] 2 mg PO Q6HR PRN MDD 4 doses/24hr 06/14/17 06/14/17 Magnesium Hydroxide [Milk of 30 ml PO DAILY PRN 06/14/17 06/14/17 Magnesia] Nystatin Cream [Mycostatin Cream] 1 applic TOP BID 06/14/17 06/14/17 Omeprazole 20 mg PO DAILY 06/14/17 06/14/17 Ropinirole HCl [Requip] 1 mg PO TIDWM 06/14/17 06/14/17 - Allergies Allergies/Adverse Reactions: Allergies Allergy/AdvReac Type Severity Reaction Status Date / Time adhesive tape Allergy Unknown Verified 09/25/17 17:31 aspirin Allergy Unknown Verified 09/25/17 17:31 gabapentin [From Neurontin] Allergy Unknown Verified 09/25/17 17:31 hydromorphone Allergy Unknown Verified 09/25/17 17:31 morphine Allergy Unknown Verified 09/25/17 17:31 Sulfa (Sulfonamide Allergy Unknown Verified 09/25/17 17:31 Antibiotics) - Social History Does the pt smoke?: No Smoking Status: Never smoker Does the pt drink ETOH?: No Does the pt have substance abuse?: No - Family History Family history: reports: Non contributory - Immunizations Immunizations are current?: Yes - POLST Patient has POLST: Yes PD ED PE NORMAL - Vitals Vital signs reviewed: Yes - General General: Alert and oriented X 3, No acute distress - HEENT HEENT: PERRL, EOMI - Neck Neck: Supple, no meningeal sign, No bony TTP - Cardiac Cardiac: RRR, No murmur - Respiratory Respiratory: No respiratory distress, Clear bilaterally - Abdomen Abdomen: Normal bowel sounds, Soft, Non tender - Derm Derm: Normal color, Warm and dry - Extremities Extremities: No edema, No calf tenderness / cord - Neuro Neuro: Alert and oriented X 3 Eye Opening: Spontaneous Motor: Obeys Commands Verbal: None GCS Score: 11 - Psych Psych: Normal mood, Normal affect NIHSS - Time Time: 17:40 - Level of Consciousness Level of consciousness: (0) Alert, Keenly responsive LOC Questions: (0) Answers both Q's correct (1918 instead of 2018 though) LOC Commands: (0) Performs both correctly - Gaze Best Gaze: (0) Normal - Visual Visual: (0) No loss - Facial Palsy Facial Palsy: (0) Normal, symmetrical movement (Bilateral defecits, chronic per daughter) - Motor Arms (both separate) Motor Arm (right): (0) No drift Motor Arm (left): (0) No drift - Motor Legs (both separate) Motor Leg (right): (0) No drift Motor Leg (left): (0) No drift - Limb Ataxia Limb Ataxia: (0) Absent - Sensory Sensory: (0) Normal - Best Language Best Language: (0) No aphasia - Dysarthria Dysarthria: (0) Normal - Extinction and Inattention (formally neg Extinction and inattention: (0) No abnormality - Total Score/Results Total Score/Result: 0 Results - Vitals Vitals: Vital Signs - 24 hr 09/25/17 09/25/17 17:22 19:04 Temperature 36.5 C Heart Rate 84 75 Respiratory 18 18 Rate Blood Pressure 115/68 118/51 L O2 Saturation 96 98 Oxygen O2 Source Room air - EKG (time done) 1804 Rate: Rate (enter#) (80) Rhythm: Atrial fibrillation Jackson: Normal QRS: Normal Ischemia: Non specific changes Computer interpretation: Agree with computer - Labs Labs: Laboratory Tests 09/25/17 09/25/17 09/25/17 18:02 18:11 18:11 WBC 7.0 RBC 4.25 Hgb 11.9 L Hct 36.5 L MCV 86.1 MCH 28.1 MCHC 32.7 RDW 16.4 H Plt Count 226 MPV 7.7 L Neut # 4.0 Lymph # 2.0 Pershing # 0.6 Eos # 0.2 Baso # 0.1 Absolute Nucleated RBC 0.00 Nucleated RBC % 0.1 Sodium 141 Potassium 4.2 Chloride 104 Carbon Dioxide 31 Anion Gap 6.0 BUN 33 H Creatinine 1.4 H Estimated GFR (MDRD) 36 L Glucose 137 H Calcium 9.4 Total Bilirubin 0.5 AST 12 ALT < 10 L Alkaline Phosphatase 51 Total Protein 7.2 Albumin 4.0 Globulin 3.2 Albumin/Globulin Ratio 1.3 Lipase 20 L Urine Color YELLOW Urine Clarity CLEAR Urine pH 7.0 Ur Specific Dawson <=1.005 Urine Protein NEGATIVE Urine Glucose (UA) NEGATIVE Urine Ketones NEGATIVE Urine Occult Blood NEGATIVE Urine Nitrite NEGATIVE Urine Bilirubin NEGATIVE Urine Urobilinogen 0.2 (NORMAL) Ur Leukocyte Esterase TRACE H Urine RBC 0-5 Urine WBC 6-10 H Ur Squamous Epith Cells MANY Squamous H Urine Bacteria Few Ur Microscopic Review INDICATED Urine Culture Comments NOT INDICATED - Rads (name of study) Ct Head Radiology: EMP read contemporaneously (Atrophy NAD) PD MEDICAL DECISION MAKING - ED course ED course: 82-year-old woman with history of TIAs, also atrial fibrillation. She is on Plavix but no other anticoagulants. She had a TIA tonight and symptoms have resolved. She also has soft UTI which is treated with Rocephin here and culture is ordered. Call to the hospitalist for observation at 8 PM. Departure - Departure Disposition: ED Place in Observation Clinical Impression: Urinary tract infection Qualifiers: Urinary tract infection type: acute cystitis Hematuria presence: without hematuria Qualified Code(s): N30.00 - Acute cystitis without hematuria TIA (transient ischemic attack) Qualifiers: Transient cerebral ischemia type: carotid artery syndrome (hemispheric) Qualified Code(s): G45.1 - Carotid artery syndrome (hemispheric) Condition: Stable
[2017-09-25 18:09] LABS: BILIRUBIN,URINE NEGATIVE (NEGATIVE); GLUCOSE, URINE (UA) NEGATIVE (NEGATIVE); KETONES,URINE (UA) NEGATIVE (NEGATIVE); LEUKOCYTE ESTERASE, URINE TRACE (NEGATIVE); NITRITE,URINE NEGATIVE (NEGATIVE); OCCULT BLOOD,URINE NEGATIVE (NEGATIVE); PROTEIN,URINE NEGATIVE (NEGATIVE); UROBILINOGEN,URINE 0.2 (NORMAL) E.U./dL (NORMAL)
[2017-09-25 18:13] LABS: CLARITY,URINE CLEAR (CLEAR)
[2017-09-25 18:18] LABS: BASOPHILS # (AUTO) 0.1 10^3/uL (0.0-0.1); EOSINOPHILS # (AUTO) 0.2 10^3/uL (0.0-0.7); EOSINOPHILS % (AUTO) 2.8 %; HGB - HEMOGLOBIN 11.9 g/dL (12.0-16.0); LYMPHOCYTES % (AUTO) 28.8 %; MEAN CORPUSCULAR HEMOGLOBIN 28.1 pg (27.0-31.0); MEAN CORPUSCULAR HGB CONC 32.7 g/dL (32.0-36.0); MEAN CORPUSCULAR VOLUME 86.1 fL (81.0-99.0); MEAN PLATELET VOLUME 7.7 fL (7.9-10.8); MONOCYTES # (AUTO) 0.6 10^3/uL (0.0-1.0); MONOCYTES % (AUTO) 9.2 %; NEUTROPHILS % (AUTO) 58.2 %; PLT - PLATELET COUNT 226 10^3/uL (130-450); RED BLOOD COUNT 4.25 10^6/uL (4.20-5.40); RED CELL DISTRIBUTION WIDTH 16.4 % (12.0-15.0)
[2017-09-25 18:30] LABS: ALBUMIN/GLOBULIN RATIO 1.3 (1.0-2.2); ALKALINE PHOSPHATASE 51 IU/L (42-121); ALT ALANINE AMINOTRANSFERASE < 10 IU/L (10-60); AST ASPARTATE AMINOTRANSFERASE 12 IU/L (10-42); BILIRUBIN,TOTAL 0.5 mg/dL (0.2-1.0); BUN - BLOOD UREA NITROGEN 33 mg/dL (6-20); CALCIUM 9.4 mg/dL (8.5-10.3); CARBON DIOXIDE - CO2 31 mmol/L (21-32); CHLORIDE 104 mmol/L (101-111); CREATININE 1.4 mg/dL (0.4-1.0); GFR - MDRD 36 (>89); GLUCOSE 137 mg/dL (70-100); LIPASE 20 U/L (22-51); SODIUM 141 mmol/L (135-145); TOTAL PROTEIN 7.2 g/dL (6.7-8.2)
[2017-09-25 18:35] LABS: BACTERIA,URINE Few /HPF (None Seen); RBC,URINE 0-5 /HPF (0-5); SQUAMOUS EPITHELIAL CELL,UR MANY Squamous (<= Few)
--- NOTE | 2017-09-25 18:50 | CT Report ---
EXAM: CT HEAD EXAM DATE: 09/25/2017 06:21 PM. CLINICAL HISTORY: Unable to be woken easily. Difficulty talking. TIA. COMPARISON: 02/08/2017. TECHNIQUE: Multiaxial CT images were obtained from the foramen magnum to the vertex. Reformats: Coron al. IV contrast: None. In accordance with CT protocol optimization, one or more of the following dose reduction techniques w ere utilized for this exam: automated exposure control, adjustment of mA and/or KV based on patient s ize, or use of iterative reconstructive technique. FINDINGS: Parenchyma: No intraparenchymal hemorrhage. No evidence of mass, midline shift, or CT findings of acu te infarction. Weems-white differentiation is distinct. Extraaxial Spaces: Normal for age. No subdural or epidural collections identified. Ventricles: The ventricles and cortical sulci are enlarged, consistent with age-related tissue loss. Sinuses and orbits: Chronic right maxillary sinus opacification, otherwise the imaged paranasal sinus es, orbits, and mastoids show no significant abnormality. Bones: No evidence of fracture or calvarial defect. Other: None. IMPRESSION: Stable age-related cortical atrophic changes without evidence of acute intracranial abnor mality. [facility] Referring Provider Line: [phone] SITE ID: [id number]
[2017-09-25] MEDS ORDERED: cefTRIAXone 1 GM in SODIUM CHLORIDE 0.9% MINIBAG 100 ML IV STA (20:00)
[2017-09-25] MEDS ORDERED: SODIUM CHLORIDE 0.9% 1,000 ML IV ONE (20:03)
[2017-09-25] MEDS ORDERED: SODIUM CHLORIDE FLUSH 0.9% 10 ML SYRINGE IVP PRN (20:18)
[2017-09-25] MEDS ORDERED: ONDANSETRON 4 MG/2 ML VIAL IVP PRN (20:18)
[2017-09-25] MEDS ORDERED: ONDANSETRON ODT 4 MG TABLET TL PRN (20:18)
[2017-09-25] MEDS ORDERED: MAGNESIUM HYDROXIDE 2,400 MG/30 ML UDC PO PRN (20:25)
[2017-09-25] MEDS ORDERED: LOPERAMIDE 2 MG CAPSULE PO PRN (20:25)
[2017-09-25] MEDS ORDERED: ACETAMINOPHEN/CODEINE 300 MG/30 MG TABLET PO PRN (20:25)
[2017-09-25] MEDS ORDERED: diphenhydrAMINE 25 MG CAPSULE PO SCH (21:00)
[2017-09-25] MEDS ORDERED: diazePAM 5 MG TABLET PO SCH (21:00)
[2017-09-25] MEDS: CARBIDOPA/LEVODOPA 25 MG/100 MG TABLET PO SCH (22:37)
[2017-09-25] MEDS: rOPINIRole 1 MG TABLET PO SCH (22:37)
[2017-09-25] MEDS: NYSTATIN CREAM 15 GM TUBE TOP SCH (22:38)
[2017-09-25] MEDS: ACETAMINOPHEN 325 MG TABLET PO PRN (23:56)
[2017-09-25] MEDS: SODIUM CHLORIDE FLUSH 0.9% 10 ML SYRINGE IVP SCH (23:56)
--- NOTE | 2017-09-26 00:10 | Ultrasound Preliminary Report ---
Exam: US CAROTID DOPPLER COMPLETE IMPRESSION: 1. Bilateral calcified carotid plaquing without significant stenosis. 2. Antegrade flow in both vertebral arteries. Validated velocity measurements with angiographic measurements and velocity criteria are extrapolated from diameter data as defined by the Society of Radiologists in Ultrasound Consensus Conference Radi ology 2003; 229;340-346. [facility] SITE ID: [id number]
--- NOTE | 2017-09-26 00:20 | Ultrasound Report ---
EXAM: CAROTID DOPPLER ULTRASOUND EXAM DATE: 09/25/2017 10:37 PM. CLINICAL HISTORY: TIA. COMPARISON: None. TECHNIQUE: Real-time sonographic vascular imaging was performed by the rental sales representative through the [employer]formerly [employer]ti d arterial system with a linear transducer utilizing color-flow, Doppler flow and spectral analysis. Multiple sales representative rural power static images were saved for review. FINDINGS: There is bilateral calcified carotid plaquing, left worse than right. No significant carotid stenosis is seen bilaterally. Antegrade flow is seen in both vertebral arteries. Right: RCCA Prox: PSV 73.4 cm/sec. RCCA Dist: PSV 81.8 cm/sec, EDV 10.6 cm/sec. RECA: PSV 126 cm/sec. R Bulb: PSV 71.7 cm/sec, EDV 10.6 cm/sec, ICA/CCA ratio 0.9. ALBERTA Prox: PSV 56.8 cm/sec, EDV 0 cm/sec, ICA/CCA ratio 0.7. ALBERTA Mid: PSV 82.9 cm/sec, EDV 16.4 cm/sec, ICA/CCA ratio 1.0. ALBERTA Dist: PSV 82.9 cm/sec, EDV 17.2 cm/sec, ICA/CCA ratio 1.0. RVA: PSV 87.3 cm/sec. RVA flow direction: Antegrade. Left: LCCA Prox: PSV 111.7 cm/sec. LCCA Dist: PSV 67.3 cm/sec, EDV 13.7 cm/sec. LECA: PSV 148.4 cm/sec. L Bulb: PSV 67.3 cm/sec, EDV 8.5 cm/sec, ICA/CCA ratio 1.0. LICA Prox: PSV 121.4 cm/sec, EDV 14.9 cm/sec, ICA/CCA ratio 1.8. LICA Mid: PSV 77.5 cm/sec, EDV 1.9 cm/sec, ICA/CCA ratio 1.5. LICA Dist: PSV 76.5 cm/sec, EDV 16.8 cm/sec, ICA/CCA ratio 1.1. LVA: PSV 71.9 cm/sec. LVA flow direction: Antegrade. Other: None. IMPRESSION: 1. Bilateral calcified carotid plaquing without significant stenosis. 2. Antegrade flow in both vertebral arteries. Validated velocity measurements with angiographic measurements and velocity criteria are extrapolated from diameter data as defined by the Society of Radiologists in Ultrasound Consensus Conference Radi ology 2003; 229;340-346. [facility] Referring Provider Line: [phone] SITE ID: [id number]
--- NOTE | 2017-09-26 01:14 | HISTORY & PHYSICAL EXAMINATION ---
DATE OF SERVICE: 09/25/2017 Physician: Charito Rooney MD PRIMARY CARE PROVIDER: Sean Waldron MD ADMITTING PROVIDER: Charito Rooney MD CHIEF COMPLAINT: Transient slurred speech and transient confusion. HISTORY OF PRESENT ILLNESS: This is an elderly woman who lives in an assisted living facility. She states that she had a stroke while living in [place] back in 2013 or 2014 and has been on Plavix ever since then. [place] And then when she moved here, she was told that she could not live alone. She is still quite rankled by it. She says that she lived independently all of her life and she cannot believe that some doctor told her that she could live by herself. When I asked her why she cannot live by herself, she could not remember what the reason, but then she slowly started recalling that she has a problem with tremors, then diagnosed as Parkinson's, and she has frequent falls. She used to be able to walk independently, then started walking with a walker and in the last couple of years, she has used a wheelchair because of her falls. Her balance continues to be off. 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 She cannot whistle, she cannot blow balloons. After moving here approximately 2014, she has now been hospitalized twice for transient altered mental status, transient slurred speech and possible right facial droop worse than usual. I am referring to her December and January 2017 visits in the emergency room. Both times CT of the head showed no new stroke. With both of those visits to the emergency room, her altered mental status and transient slurred speech resolved and as such, she was not admitted after the CT of the head.With one visit it was postulated she may have had a UTI. She does have atrial fibrillation according to her past medical history. When I spoke to Dr. Vanita engle, he does not recall that history, but she has that diagnosis since an admission for bloody diarrhea in 09/2015. The patient herself says she does not remember having atrial fibrillation. Telemetry does note that she does have atrial fibrillation. In any case, she is not on anticoagulation for atrial fibrillation. She has chronic peripheral edema. Sometimes she gets superficial cellulitis. She went to go see MARIO Bullock today and was put on clarithromycin. She then got back to her assisted living facility and was very tired and took a nap. She was difficult to wake up from her nap and she was felt to have slurred speech, transient worsening right facial droop and EMS was called. So with this episode, it is a third episode where she has been felt to have a change in mental status and slurred speech. Of note, on her medical record list of medications, she takes Valium, Tylenol with codeine, and Requip as well as Sinemet. The patient denies fever, chills. She has frequent UTIs, but does not feel like she has a new one. She always feels like she has urgency and frequency. No specific dysuria right now. No change in bowel habits, right now. In the emergency room, she was evaluated by Dr. Perdomo where vital signs were normal. Breathing well on room air and 97% saturated. She had the bilateral facial droop, but is alert and keenly responsive. Her facial palsy is symmetrical, and bilateral deficits are chronic and not new. Her strength of both sides is normal with no drift. CT of the head is negative. Urinalysis has contamination, but is going to be treated as a UTI because of her history of frequent UTIs. She is now placed in observation for altered mental status, presumed slurred speech. PAST MEDICAL HISTORY 1. Familial tremor. She says 10 people in her family have it. Her has progressed to the diagnosis of Parkinson's disease for which she is on the Requip and Sinemet. She is also on a beta scott for it. This has resulted in gait ataxia, falls and loss of independent living status. 2. Bloody diarrhea 09/2015. Colonoscopy showed polyps and Only focal colitis was seen on pathology. She did require 3 units of packed cell transfusion. 3. Hypertension. 4. Chronic atrial fibrillation per her old medical record. 5. Osteoarthritis. Left shoulder surgery in 2008 from either arthritis or a combination of arthritis and a fall. 6. Chronic kidney disease. GFR is consistently at 36, making her stage III. Creatinine usually 1.4-1.5. 7. Recurrent UTIs. The EMR shows EBSL producing Escherichia coli, Escherichia coli, EBSL producing Klebsiella, Citrobacter koseri, and Enterococcus faecalis as most recently as June 2017. 8. G3, P3. Status post hysterectomy for endometriosis in her late 40s. 9. Schwannoma left shoulder. 10. Hernia repair in 2013. 11. Incidental appendectomy with her hysterectomy. 10. Leg fracture when she was in her 20s. 11. Chronic peripheral edema. 12. Osteopenia. Fall in December 2015 resulted in distal right radial fracture and an ulnar styloid fracture. 13. Chronic right mastoiditis seen on previous CTs of head. ALLERGIES: SHE IS ALLERGIC TO 1. ADHESIVE TAPE. 2. ASPIRIN. 3. GABAPENTIN. 4. HYDROMORPHONE. 5. MORPHINE. 6. SULFA. MEDICATIONS: Medication list is obtained in the EMR, but has not been verified by pharmacy or reconciled. 1. She has Tylenol with codeine prescribed by Dr. Ye 10/2016. 2. Vitamin C 500 mg daily. 3. Calcium antacid 750 mg daily as needed. 4. Calcium, magnesium, zinc, vitamin D 1 tablet 3 times a day. 5. Sinemet 25/100 q.i.d. 6. Vitamin D 400 units daily. 7. Plavix 75 mg daily. 8. Valium 5 mg in the evening. 9. Benadryl 25 mg in the evening. 10. Lasix 20 mg a day. 11. Glycerin suppository p.r.n. constipation. 12. Lisinopril 5 mg daily. 13. Imodium 2 mg every 6 hours p.r.n. diarrhea. 14. Milk of magnesia 30 mL at night p.r.n. constipation. 15. Nystatin cream as needed when she gets candidiasis in her intertriginous folds. 16. Omeprazole 20 mg daily. 17. Potassium 20 mEq daily. 18. Propranolol 10 mg daily. 19. Requip 1 mg p.o. t.i.d. with meals. SOCIAL HISTORY: She was born in [place], but she has had a very colorful and full life where she has been 3 times. She has all 3 husbands and they are all now. But from [place], she has lived in 49 places throughout her life. That includes the [place] and [place], including [place], [place] and [place]. 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 She also worked for [employer], and she and one of her ex-husbands started [employer] on the [facility]. She was living in [place] when she ostensibly came to the [place] approximately [phone] to be closer to one of her daughters. As far she was concerned, she was perfectly fine and only moved here to live to be close to her daughters. So she felt shocked and surprised that she was told that she could no longer live in her own home by herself and had to move to an assisted living facility. She never smoked. She rarely drank. She had no problems with alcohol abuse. FAMILY HISTORY: Mom at 93 of chronic renal failure. Dad at 54 of heart complications from rheumatoid arthritis. One brother of alcoholism. Six other siblings she thinks are still alive and healthy. Her 3 children are healthy. REVIEW OF SYSTEMS CONSTITUTIONAL: Negative for any constitutional complaints of fevers, sweats, unexpected weight changes. ENT: Cai's palsy. Denies glaucoma or cataracts. Has problems with phonation at times. Voice will fade in and out. She attributes that to the Cai's palsy and I had to explain to her that Cai's palsy should not affect her voice. PULMONARY: Denies coughing, wheezing. Bronchitis issues. No history of asthma. CARDIAC: Denies orthopnea, always has chronic leg edema. Denies chest pain. She has no palpitations and the diagnosis of atrial fibrillation is new to her. GASTROINTESTINAL: Has dyspepsia for which she uses [id number] Tums tablets. She always has the urge to defecate with her UTIs. Right now, she feels like she has to go to the bathroom, but nothing is coming out and it is associated with urinary urgency. She denies blood in her stool, any recent episodes of diarrhea. She denies abdominal pain. GENITOURINARY: Frequent urgency, frequency. No dysuria at this time. She denies flank pain. Denies hematuria. JOINTS: Stiff, mainly in the knees and hips, but no new effusions. SKIN: Denies new rashes, new moles. No lesions. PSYCH: While she is not happy about living in an assisted living facility, she does not feel she is depressed. She denies hallucinations. She feels like she has had a wonderful life. She looks forward to many more years. 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 She denies memory loss. PHYSICAL EXAMINATION VITAL SIGNS: She is 36.6 temperature, pulse 78, blood pressure 128/54, respirations 18, 97% on room air. GENERAL: A morbidly obese, elderly female with slack bilateral facies that is symmetrical, a low monotonic speech, no acute distress. She feels like she is back to baseline. HEAD AND NECK: Has the bilateral facial asymmetry. Pupils that are reactive. The low flat voice. Tongue is midline with slight tongue tremor. Neck is supple. No goiter. No JVD. LUNGS: Clear to auscultation and percussion in a lady who has slow, shallow, unlabored respirations. Diminished at the bases. HEART: She has an irregularly irregular rate and rhythm and heart rates in the 80s. No murmurs. I do not hear rubs or gallops. ABDOMEN: Obese, soft, nontender with evidence of old Genet intertriginous changes of the folds of her pannus and intertriginous folds of her groin. Normal bowel sounds. There is no rebound or guarding on abdominal exam. Difficult to assess for organomegaly because of her large size. EXTREMITIES: Has changes of chronic venous stasis. She is wearing JEANETTE hose that I have to remove to be able to examine her legs. You can see where black marker has delineated where she had the cellulitis, for which she was seen today for. Even though she is taking no antibiotics, the redness and heat seem to have receded by at least 1-2 inches distally from the black marker were it marked the progression of cellulitis. No clubbing. No cyanosis. NEUROLOGIC: She is oriented to person, place, time. While she is lucid, she is vague about certain aspects of her history. For instance, she cannot tell me why someone would think that she cannot live alone. She is vague and indirect in answering her questions with regards to the reason. I asked her if it was because of her memory, was it because of her falls, was because of poor judgement on her part, and she just cannot remember why a doctor would say she could not live alone. She has a resting left hand tremor and arm tremor. Lips tremble. Voice trembles occasionally, but hand grasp strength is symmetrical. She is weak, but I attribute that her age, not because of acute stroke. She lifts her both legs off of the bed, can plantar and dorsiflex her feet. LABORATORY DATA: Electrolytes show her to have a BUN of 33, creatinine of 1.4. Otherwise, all else is normal. Random glucose 137. CBC with a hemoglobin of 11.9, hematocrit 36.5. In comparison to 03/2017, her hemoglobin was 11.5 and 34.7. Urinalysis today is negative for nitrites. She has trace leukocyte esterase, 6-10 white cells per high power field, many squamous cells. Culture not indicated because of so many squamous cells. Head CT with stable age-related cortical atrophic changes without evidence of acute intracranial abnormality. Telemetry shows her to have atrial fibrillation alternating with a narrow complex irregular tachycardia. ASSESSMENT AND PLAN 1. Transient slurred speech and lethargy. This is in the setting of having gone to her doctor's office, come home and taken a nap and was exhausted. This is also in the setting of someone who has done this twice before, and she takes medications that sedate her. While the differential diagnosis does include TIA, I wonder if this patient also suffers from the consequences of taking 2 medications that sedate her and when you wake her up, she will have transient slurred speech. This seems to be the problem with her visits in the emergency room in December and January 2017. Plan is to place her in observation for possible TIA. Attestation that the patient will be admitted less than 96 hours. During her stay, she will get an MRI of the brain, as well as MR angiogram of the wrangell of [place] and carotids. She will also get an echocardiogram to evaluate for possible cardiac emboli from her atrial fibrillation. She is on Plavix from a neurological perspective of her previous history of stroke in [place], but she is not on a statin. Nonsteroidals are contraindicated, so she cannot have aspirin. 2. Atrial fibrillation. I did speak to Dr. Waldron who says that is not on his past medical history from what he can see in the EMR. It does not mean that she does not have it, just that he is not noting it. It is noted in her [facility] from [facility] as a problem, and it was noted on her past medical history when she was admitted for bloody diarrhea in 09/2015. At this time, rate is controlled. It is felt to be persistent chronic atrial fibrillation. We will check echocardiogram. 3. Parkinson's disease. Resume Sinemet and Requip. 4. Venous stasis dermatitis. Chronic. Today felt to have possible early cellulitis of her lower extremities. While I do see venous stasis, I do not think she is acutely infected. Nevertheless, Rocephin has been started more for possible UTI rather than cellulitis. 5. Abnormal urinary constituents that may or may not be contamination, but this patient has a history of UTIs and she has altered mental status that may or may not be from the UTI. As such, she is on Rocephin. No culture will be done of the urine according to the lab. In the outpatient setting, we will discharge her with Keflex to cover her legs as well as the abnormal urinary constituents. 6. Hypertension that is well controlled at this time. Resume her lisinopril. 7. Chronic kidney disease, stage III. Stable. She will receive 1 liter of IV fluids and then IV lock. 8. DO NOT RESUSCITATE status. 9. Deep venous thrombosis prophylaxis will be continued, JEANETTE rosario, and we will start her in anticoagulation for the atrial fibrillation. TD: 09/26/2017 01:13 MATILDE
[2017-09-26 05:40] LABS: CHOL/HDL RATIO 5.1 (<4.4); CHOLESTEROL 192 mg/dL; HDL CHOLESTEROL 38 mg/dL; LDL CHOLESTEROL,CALCULATED 115 mg/dL; VLDL CHOLESTEROL 39 mg/dL
[2017-09-26] MEDS: rOPINIRole 1 MG TABLET PO SCH ×2 (07:55→12:01)
[2017-09-26] MEDS ORDERED: POLYETHYLENE GLYCOL 3350 17 GM PACKET PO SCH (09:00)
[2017-09-26] MEDS ORDERED: CLOPIDOGREL 75 MG TABLET PO SCH (09:00)
[2017-09-26] MEDS ORDERED: FUROSEMIDE 20 MG TABLET PO SCH (09:00)
[2017-09-26] MEDS ORDERED: POTASSIUM CHLORIDE 20 MEQ TABLET PO SCH (09:00)
[2017-09-26] MEDS ORDERED: ASCORBIC ACID CHEW 500 MG TABLET PO SCH (09:00)
[2017-09-26] MEDS ORDERED: LISINOPRIL 5 MG TABLET PO SCH (09:00)
[2017-09-26] MEDS: CARBIDOPA/LEVODOPA 25 MG/100 MG TABLET PO SCH ×2 (10:25→13:32)
[2017-09-26] MEDS: NYSTATIN CREAM 15 GM TUBE TOP SCH (10:28)
[2017-09-26] MEDS: SODIUM CHLORIDE FLUSH 0.9% 10 ML SYRINGE IVP SCH (10:34)
--- NOTE | 2017-09-26 12:35 | Discharge Plan ---
Discharge Plan Disposition: 01 Home, Self Care Condition: Poor Prescriptions: Cephalexin [Keflex] 500 mg PO BID #20 capsule Diet: Cardiac Activity Restrictions: Activity as Tolerated Shower Restrictions: No (caregiver closely monitor, fall precaution) Assistance Devices: Walker Instruction Topics: Cephalexin tablets or capsules, AFL/Afib, TIA, UTI, Cellulitis Ch Additional Instructions or Follow Up instructions: May see PCP in 2-3 days, and discuss to start with anticoagulant. Pt has A Fib/ Flutter. Pt currently takes Plavix. Pt is prescribed Keflex antibiotics now, pt may start to have anticoagulant after finishing of antibiotics course. Follow-Up Care: Outpatient Rehab - PT No Smoking: If you smoke, Please STOP! Call for help. Follow-up with: Sean Waldron MD [Primary Care Provider] -
[2017-09-26] MEDS: ACETAMINOPHEN 325 MG TABLET PO PRN (14:06)
--- NOTE | 2017-09-26 15:26 | DISCHARGE SUMMARY ---
Discharge Summary Discharge Date: 09/26/17 Discharging Provider: RAMIREZ Primary Care Provider: Dr. Sean Waldron Condition at Discharge: Poor Discharge Disposition: 01 Home, Self Care Discharge Facility Name: home - DIAGNOSES Admission Diagnoses: 1, TIA 2, Afib 3, parkinson's disease 4, venous stasis dermatitis 5, possible UTI 6, HTN 7, CKD Discharge Diagnoses with Status of Each Condition: 1, TIA pt denies focus neurological deficit, state it was her baseline. pt state she had bilateral bells palsy, central tremor, Parkinson's disease. some Slurred speech as her baseline. Pt refuse to have MRI/MRA. 2, Afib pt had Plavix but not on anticoagulant. EKG on hospital did reveals A Flutter. I discussed with pt's PCP dr. Waldron about start of anticoagulant. Pt current is prescribed Keflex for her bilateral skin infection and possible UTI. after finish the course of antibiotics, pt may start with anticoagulant. pt is advised to continue Plavix now until reviewed with her PCP. 3, parkinson's disease stable, continue management by PCP 4, venous stasis dermatitis possible initiate skin cellulitis, start Keflex, and continue management by PCP 5, possible UTI start Keflex, and continue management by PCP 6, HTN stable, continue home regime 7, CKD stable, continue management by PCP. - HPI History of Present Illness: refer from Dr. Rooney's HPI on 09/25/17 to pt - HOSPITAL COURSE Hospital Course: pt was admitted on observation unit for TIA, transient slurred speech, and transient confusion. Pt denies focus neurological deficit in the morning, and state it is her baseline. pt state she had bilateral bells palsy, central tremor , Parkinson's disease. Pt refused to have MRI/MRA for further evaluation. Pt is prescribed Keflex for her bilateral possible initiate skin infection or cellulitis with venous stasis dermatitis, and possible UTI. I discussed with pt' s PCP for start of anticoagulant since pt has hx of afib and EKG in hospital reveals Aflutter. Pt is prescribed antibiotics, pt is advised to discuss with her PCP for initiating of anticoagulant therapy. Pt's ECHO reveals EF 65-70%, RVSP is 47mmhg. - ALLERGIES Allergies/Adverse Reactions: Allergies Allergy/AdvReac Type Severity Reaction Status Date / Time adhesive tape Allergy Unknown Verified 09/25/17 17:31 aspirin Allergy Unknown Verified 09/25/17 17:31 gabapentin [From Neurontin] Allergy Unknown Verified 09/25/17 17:31 hydromorphone Allergy Unknown Verified 09/25/17 17:31 morphine Allergy Unknown Verified 09/25/17 17:31 Sulfa (Sulfonamide Allergy Unknown Verified 09/25/17 17:31 Antibiotics) - MEDICATIONS Home Medications: Ambulatory Orders Medication Instructions Recorded Confirmed Carbidopa/Levodopa 1 tab PO QID 09/16/15 09/26/17 [Carbidopa-Levodopa 25-100 Tab] Potassium Chloride [Klor-Con M20] 20 meq PO DAILY 09/16/15 09/26/17 Propranolol [Inderal] 10 mg ORAL BID 09/16/15 09/26/17 Clopidogrel [Plavix] 75 mg PO DAILY 12/13/15 09/26/17 Furosemide 40 mg PO DAILY 12/13/15 09/26/17 Lisinopril 5 mg PO DAILY 12/13/15 09/26/17 diazePAM [Diazepam] 2.5 mg PO QPM 12/13/15 09/26/17 Ascorbic Acid 500 mg PO DAILY 06/14/17 09/26/17 Calcium Antacid Chewable 750 mg PO DAILY PRN 06/14/17 09/26/17 Calcium/Magnesium/Zinc 1 tab PO TID 06/14/17 09/26/17 [Ufhjzme-Nvepzrccr-Vrhn Tablet] Cholecalciferol (Vitamin D3) 400 unit PO DAILY 06/14/17 09/26/17 [Vitamin D3] D-Mannose 2,000 mg PO BID 06/14/17 09/26/17 Diphenhydramine HCl [Nighttime 25 mg PO QPM 06/14/17 09/26/17 Sleep Aid] Glycerin Adult Supp 1 supp IA DAILY PRN 06/14/17 09/26/17 Loperamide [Imodium] 2 mg PO Q6HR PRN MDD 4 doses/24hr 06/14/17 09/26/17 Magnesium Hydroxide [Milk of 30 ml PO DAILY PRN 06/14/17 09/26/17 Magnesia] Nystatin Cream [Mycostatin Cream] 1 applic TOP BID 06/14/17 09/26/17 Omeprazole 20 mg PO DAILY 06/14/17 09/26/17 Ropinirole HCl [Requip] 1 mg PO TIDWM 06/14/17 09/26/17 Acetaminophen with Codeine 1 tab PO PRN PRN MDD 3000 MG APAP 09/26/17 09/26/17 [Tylenol with Codeine #3 Tablet] Cephalexin [Keflex] 500 mg PO BID #20 capsule 09/26/17 - PHYSICAL EXAM AT DISCHARGE General Appearance: positive: No acute distress, Alert. negative: Lethargic Eyes Bilateral: positive: Normal inspection, PERRL, No lid inflammation, Conjunctivae nml ENT: positive: ENT inspection nml, Pharynx nml, No signs of dehydration. negative: Purulent nasal drainage, Pharyngeal erythema, Oral lesions Neck: positive: Nml inspection, Thyroid nml, No JVD, Trachea midline. negative : Thyromegaly, Lymphadenopathy (R), Lymphadenopathy (L), Stiff neck, Swelling/ bruising, Tracheal deviation Respiratory: positive: Chest non-tender, No respiratory distress, Breath sounds nml. negative: Wheezes, Rales, Rhonchi Cardiovascular: positive: Regular rate & rhythm, No murmur, No gallop. negative : Irregularly irregular, Extrasystoles, Tachycardia, Bradycardia, Systolic murmur, Diastolic murmur Peripheral Pulses: positive: 2+ Abdomen: positive: Non-tender, No organomegaly, Nml bowel sounds, No distention. negative: Tenderness, Guarding, Rebound Back: positive: Nml inspection. negative: CVA tenderness (R), CVA tenderness (L ) Skin: positive: Color nml, No rash, Warm, Dry. negative: Cyanosis, Diaphoresis , Pallor Extremities: positive: Non-tender, Nml appearance. negative: Calf tenderness, Joint swelling, David's sign/cords Neurologic/Psychiatric: positive: Oriented x3, Sensation nml, Mood/affect nml. negative: Sensory loss, Facial droop, Slurred/abnml speech, Depressed mood/ affect - LABS Result Diagrams: 09/25/17 18:11 09/25/17 18:11 - FOLLOW UP Follow Up: May see PCP in 2-3 days, and discuss to start with anticoagulant. Pt has A Fib/ Flutter. Pt currently takes Plavix. Pt is prescribed Keflex antibiotics now, pt is advised to discuss with her PCP for initiating of anticoagulatn, and may start to have anticoagulant after finishing of antibiotics course. - TIME SPENT Time Spent in Discharge (Minutes): 50
[2017-09-26 15:50] VITALS: BP 111/57
== END 2017-09-26 17:32 | disposition home or self-care (01) ==
LOC: EDUNIT# → SUPCPDRO 17:05 → ED 17:05 → OBS 20:18
PROVIDERS: ADMIT Specialist; ATTEND Nurse Practitioner Gerontology
DX: G45.9 Transient cerebral ischemic attack, unspecified (principal); I48.2 Chronic atrial fibrillation; I48.92 Unspecified atrial flutter; G20 Parkinson's disease; I87.2 Venous insufficiency (chronic) (peripheral); I12.9 Hypertensive chronic kidney disease with stage 1 through stage 4 chronic kidney disease, or unspecified chronic kidney disease; N18.3 Chronic kidney disease, stage 3 (moderate); Z79.02 Long term (current) use of antithrombotics/antiplatelets; Z91.81 History of falling; G51.0 Bell's palsy; Z86.73 Personal history of transient ischemic attack (TIA), and cerebral infarction without residual deficits; R82.99 Other abnormal findings in urine; Z87.440 Personal history of urinary (tract) infections; R60.9 Edema, unspecified; M85.80 Other specified disorders of bone density and structure, unspecified site; Z87.81 Personal history of (healed) traumatic fracture; H70.11 Chronic mastoiditis, right ear; Z79.899 Other long term (current) drug therapy; R10.13 Epigastric pain; E66.01 Morbid (severe) obesity due to excess calories; Z68.41 Body mass index [BMI] 40.0-44.9, adult; Z66 Do not resuscitate; R29.700 NIHSS score 0
CPT/HCPCS: 36415; 70450; 80053; 80061; 81001; 83690; 85025; 87086; 93005; 93306; 93880; 96365; 99284; A9270; G0378; 81003; 83721

== ENCOUNTER 2017-09-30 05:16 | Outpatient (CLI) | payer MEDICARE, OTHER | END 2017-09-30 05:17 | disposition critical access hospital (66) | LOC: EMS 05:16 | PROVIDERS: ATTEND Surgery | DX: R60.0 Localized edema (principal); R06.00 Dyspnea, unspecified | CPT/HCPCS: A0425; A0427 ==

== ENCOUNTER 2017-09-30 05:31 | Emergency (ER) | payer MEDICARE, OTHER ==
[2017-09-30] MEDS ORDERED: DEXAMETHASONE 10 MG/ML VIAL IVP STA (05:53)
--- NOTE | 2017-09-30 05:53 | ED Physician Documentation ---
PD HPI DYSPNEA - Stated complaint Stated Complaint: SWELLING, SOA - Chief complaint Chief Complaint: Heent - History obtained from History obtained from: Patient - History of Present Illness Timing - onset: Today Timing - onset during: Rest Timing - duration: Hours Timing - details: Abrupt onset (she says she felt okay yesterday. Awoke today and was going to bathroom and felt that her lips were numb and swollen feeling. Denies trouble breathing nor swallowing. Called for assistance (lives in assisted care) and caregivers called EMS. Vitals stable enroute. Given some Benadryl. Patient denies itching/rash.) Inciting event(s): Allergic rxn/anaphylaxis (she is on Keflex the past 4 days for UTI and possible skin infection.). No: Out of meds Associated symptoms: Bilateral edema (has some chronic edema in both legs.). No : Fever, Cough, Wheezing, Chest pain / discomfort Similar symptoms before: Has not had sx before Recently seen: Admitted (For weakness and possible TIA. Dx also with possible UTI and skin infection, atrial fib. New med of Keflex.) Review of Systems Constitutional: denies: Fever, Chills Eyes: reports: Decreased vision (due to macular degeneration) Nose: denies: Rhinorrhea / runny nose, Congestion Throat: denies: Sore throat GI: reports: Diarrhea (chronic). 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 : None HEENT: None Musculoskeletal: Osteoarthritis Derm: None - Past Surgical History Past Surgical History: Yes General: Appendectomy /FISH GRADER: Hysterectomy HEENT: Tonsil/Adenoidectomy - Present Medications Home Medications: Ambulatory Orders Medication Instructions Recorded Confirmed Carbidopa/Levodopa 1 tab PO QID 09/16/15 09/26/17 [Carbidopa-Levodopa 25-100 Tab] Potassium Chloride [Klor-Con M20] 20 meq PO DAILY 09/16/15 09/26/17 Propranolol [Inderal] 10 mg ORAL BID 09/16/15 09/26/17 Clopidogrel [Plavix] 75 mg PO DAILY 12/13/15 09/26/17 Furosemide 40 mg PO DAILY 12/13/15 09/26/17 Lisinopril 5 mg PO DAILY 12/13/15 09/26/17 diazePAM [Diazepam] 2.5 mg PO QPM 12/13/15 09/26/17 Ascorbic Acid 500 mg PO DAILY 06/14/17 09/26/17 Calcium Antacid Chewable 750 mg PO DAILY PRN 06/14/17 09/26/17 Calcium/Magnesium/Zinc 1 tab PO TID 06/14/17 09/26/17 [Lpxnspn-Lbsbkqaqy-Vdqh Tablet] Cholecalciferol (Vitamin D3) 400 unit PO DAILY 06/14/17 09/26/17 [Vitamin D3] D-Mannose 2,000 mg PO BID 06/14/17 09/26/17 Diphenhydramine HCl [Nighttime 25 mg PO QPM 06/14/17 09/26/17 Sleep Aid] Glycerin Adult Supp 1 supp IA DAILY PRN 06/14/17 09/26/17 Loperamide [Imodium] 2 mg PO Q6HR PRN MDD 4 doses/24hr 06/14/17 09/26/17 Magnesium Hydroxide [Milk of 30 ml PO DAILY PRN 06/14/17 09/26/17 Magnesia] Nystatin Cream [Mycostatin Cream] 1 applic TOP BID 06/14/17 09/26/17 Ropinirole HCl [Requip] 1 mg PO TIDWM 06/14/17 09/26/17 Acetaminophen with Codeine 1 tab PO PRN PRN MDD 3000 MG APAP 09/26/17 09/26/17 [Tylenol with Codeine #3 Tablet] Cephalexin [Keflex] 500 mg PO BID #20 capsule 09/26/17 - Allergies Allergies/Adverse Reactions: Allergies Allergy/AdvReac Type Severity Reaction Status Date / Time adhesive tape Allergy Unknown Verified 09/30/17 05:39 aspirin Allergy Unknown Verified 09/30/17 05:39 gabapentin [From Neurontin] Allergy Unknown Verified 09/30/17 05:39 hydromorphone Allergy Unknown Verified 09/30/17 05:39 morphine Allergy Unknown Verified 09/30/17 05:39 Sulfa (Sulfonamide Allergy Unknown Verified 09/30/17 05:39 Antibiotics) - Social History Does the pt smoke?: No Smoking Status: Never smoker Does the pt drink ETOH?: No Does the pt have substance abuse?: No - Immunizations Immunizations are current?: Yes - POLST Patient has POLST: Yes PD ED PE NORMAL - Vitals Vital signs reviewed: Yes - General General: Alert and oriented X 3, No acute distress, Well developed/nourished, Other (edema of upper and lower lips circumferentially. Tongue and throat are normal. Lungs clear. Neck supple without adenopathy. ) - HEENT HEENT: Moist mucous membranes, Pharynx benign - Neck Neck: Supple, no meningeal sign, No adenopathy - Cardiac Cardiac: RRR, No murmur - Respiratory Respiratory: Clear bilaterally - Abdomen Abdomen: Soft, Non tender - Derm Derm: Normal color, Warm and dry, No rash - Extremities Extremities: No calf tenderness / cord, Other (1+ edema in both legs, with compression stockings on her legs. ) - Neuro Neuro: Alert and oriented X 3, No motor deficit, No sensory deficit, Normal speech Results - Vitals Vitals: Vital Signs - 24 hr 09/30/17 09/30/17 05:33 06:37 Temperature 36.2 C L Heart Rate 74 70 Respiratory 18 16 Rate Blood Pressure 152/68 H 147/85 H O2 Saturation 98 95 Oxygen O2 Source Room air PD MEDICAL DECISION MAKING - ED course Complexity details: reviewed old records, re-evaluated patient (no worsening of swelling while here. ), considered differential (could be allergic reaction to Keflex (new med for her started 4 days ago) but has focal edema of lips and no hives/rash and so consider JALEEL related angioedema, as she is on Lisinopril. Will stop both meds. Legs do not have much redness. Urine culture was showing no growth. Don't feel that I need to change to different abx at this time. ), d/ w patient Departure - Departure Clinical Impression: Angioedema of lips Qualifiers: Encounter type: initial encounter Qualified Code(s): T78.3XXA - Angioneurotic edema, initial encounter Condition: Stable Record reviewed to determine appropriate education?: Yes Instructions: ED Angioedema Comments: Stop the Keflex and Lisinopril, as the lip swelling may relate to either of these medications. Follow up with PMD in a few days, call for an appt.
[2017-09-30 06:38] VITALS: BP 147/85
== END 2017-09-30 07:49 | disposition home or self-care (01) ==
LOC: EDUNIT# → ED 05:31
DX: I10 Essential (primary) hypertension (principal); I48.91 Unspecified atrial fibrillation; G20 Parkinson's disease; Z79.02 Long term (current) use of antithrombotics/antiplatelets; M19.90 Unspecified osteoarthritis, unspecified site; T78.3XXA Angioneurotic edema, initial encounter
CPT/HCPCS: 96374; 99283

== ENCOUNTER 2017-11-19 11:03 | Outpatient (CLI) | payer MEDICARE, OTHER ==
[2017-11-19 11:40] LABS: BASOPHILS # (AUTO) 0.1 10^3/uL (0.0-0.1); BASOPHILS % (AUTO) 0.8 %; EOSINOPHILS # (AUTO) 0.1 10^3/uL (0.0-0.7); EOSINOPHILS % (AUTO) 2.3 %; LYMPHOCYTES # (AUTO) 1.6 10^3/uL (1.5-3.5); LYMPHOCYTES % (AUTO) 24.7 %; MEAN CORPUSCULAR HEMOGLOBIN 28.9 pg (27.0-31.0); MEAN CORPUSCULAR HGB CONC 32.5 g/dL (32.0-36.0); MEAN CORPUSCULAR VOLUME 88.9 fL (81.0-99.0); MEAN PLATELET VOLUME 7.6 fL (7.9-10.8); MONOCYTES # (AUTO) 0.5 10^3/uL (0.0-1.0); MONOCYTES % (AUTO) 8.3 %; NEUTROPHILS # (AUTO) 4.2 10^3/uL (1.5-6.6); NEUTROPHILS % (AUTO) 63.9 %; PLT - PLATELET COUNT 238 10^3/uL (130-450); RED BLOOD COUNT 4.15 10^6/uL (4.20-5.40); WHITE BLOOD COUNT 6.5 x10^3/uL (4.8-10.8)
[2017-11-19 11:57] LABS: ALBUMIN 3.8 g/dL (3.2-5.5); ALBUMIN/GLOBULIN RATIO 1.1 (1.0-2.2); ALKALINE PHOSPHATASE 56 IU/L (42-121); ALT ALANINE AMINOTRANSFERASE < 10 IU/L (10-60); AST ASPARTATE AMINOTRANSFERASE 16 IU/L (10-42); BILIRUBIN,TOTAL 0.5 mg/dL (0.2-1.0); BUN - BLOOD UREA NITROGEN 34 mg/dL (6-20); CALCIUM 9.5 mg/dL (8.5-10.3); CARBON DIOXIDE - CO2 33 mmol/L (21-32); CHLORIDE 99 mmol/L (101-111); CREATININE 1.5 mg/dL (0.4-1.0); GFR - MDRD 33 (>89); GLUCOSE 124 mg/dL (70-100); SODIUM 140 mmol/L (135-145); TOTAL PROTEIN 7.4 g/dL (6.7-8.2)
== END 2017-11-19 11:04 | disposition home or self-care (01) ==
LOC: LAB 11:03
PROVIDERS: ATTEND Internal Medicine
DX: N18.9 Chronic kidney disease, unspecified (principal)
CPT/HCPCS: 36415; 80053; 85025

== ENCOUNTER 2018-01-21 15:55 | Outpatient (CLI) | payer MEDICARE, OTHER ==
[2018-01-21 19:01] LABS: BASOPHILS % (AUTO) 0.2 %; EOSINOPHILS # (AUTO) 0.1 10^3/uL (0.0-0.7); EOSINOPHILS % (AUTO) 1.4 %; HGB - HEMOGLOBIN 11.9 g/dL (12.0-16.0); LYMPHOCYTES # (AUTO) 1.7 10^3/uL (1.5-3.5); LYMPHOCYTES % (AUTO) 23.6 %; MEAN CORPUSCULAR HEMOGLOBIN 28.9 pg (27.0-31.0); MEAN CORPUSCULAR HGB CONC 33.6 g/dL (32.0-36.0); MEAN PLATELET VOLUME 8.4 fL (7.9-10.8); MONOCYTES # (AUTO) 0.6 10^3/uL (0.0-1.0); MONOCYTES % (AUTO) 9.2 %; NEUTROPHILS # (AUTO) 4.6 10^3/uL (1.5-6.6); NEUTROPHILS % (AUTO) 65.6 %; PLT - PLATELET COUNT 230 10^3/uL (130-450); RED BLOOD COUNT 4.12 10^6/uL (4.20-5.40); RED CELL DISTRIBUTION WIDTH 14.7 % (12.0-15.0)
[2018-01-21 20:00] LABS: ALBUMIN 4.1 g/dL (3.2-5.5); ALBUMIN/GLOBULIN RATIO 1.2 (1.0-2.2); ALKALINE PHOSPHATASE 51 IU/L (42-121); ALT ALANINE AMINOTRANSFERASE < 10 IU/L (10-60); AST ASPARTATE AMINOTRANSFERASE 12 IU/L (10-42); BILIRUBIN,TOTAL 0.5 mg/dL (0.2-1.0); BUN - BLOOD UREA NITROGEN 32 mg/dL (6-20); CALCIUM 9.6 mg/dL (8.5-10.3); CARBON DIOXIDE - CO2 32 mmol/L (21-32); CHLORIDE 98 mmol/L (101-111); CREATININE 1.6 mg/dL (0.4-1.0); GFR - MDRD 31 (>89); GLUCOSE 110 mg/dL (70-100); SODIUM 140 mmol/L (135-145); TOTAL PROTEIN 7.4 g/dL (6.7-8.2)
== END 2018-01-21 15:56 | disposition home or self-care (01) ==
LOC: LAB.R 15:55
PROVIDERS: ATTEND Internal Medicine
DX: R10.9 Unspecified abdominal pain (principal)
CPT/HCPCS: 80053; 85025

== ENCOUNTER 2018-02-14 16:19 | Outpatient (CLI) | payer MEDICARE, OTHER | END 2018-02-14 16:20 | disposition critical access hospital (66) | LOC: EMS 16:19 | PROVIDERS: ATTEND Surgery | DX: M54.5 Low back pain (principal); M25.551 Pain in right hip; W19.XXXA Unspecified fall, initial encounter | CPT/HCPCS: A0425; A0429 ==

== ENCOUNTER 2018-02-14 16:36 | Emergency (ER) | payer MEDICARE, OTHER ==
[2018-02-14] MEDS ORDERED: HYDROcod/ACETAM 5/325 MG TABLET PO STA (16:42)
--- NOTE | 2018-02-14 16:44 | ED Physician Documentation ---
PD HPI BACK PAIN - Stated complaint Stated Complaint: GLF, R SIDE BACK PAIN - History obtained from History obtained from: Patient, EMS - History of Present Illness Timing - onset: Today (83-year-old woman with history of A. fib on Plavix but no other anticoagulants had a slip and fall in the bathroom and assisted living hitting her posterior right thoracic wall on the toilet with significant pain. She was given a codeine prior to arrival but that was insufficient. She denies other injuries. No headache or neck injury. 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: Hysterectomy HEENT: Tonsil/Adenoidectomy - Present Medications Home Medications: Ambulatory Orders Medication Instructions Recorded Confirmed Carbidopa/Levodopa 1 tab PO QID 09/16/15 09/26/17 [Carbidopa-Levodopa 25-100 Tab] Potassium Chloride [Klor-Con M20] 20 meq PO DAILY 09/16/15 09/26/17 Propranolol [Inderal] 10 mg ORAL BID 09/16/15 09/26/17 Clopidogrel [Plavix] 75 mg PO DAILY 12/13/15 09/26/17 Furosemide 40 mg PO DAILY 12/13/15 09/26/17 diazePAM [Diazepam] 2.5 mg PO QPM 12/13/15 09/26/17 Ascorbic Acid 500 mg PO DAILY 06/14/17 09/26/17 Calcium Antacid Chewable 750 mg PO DAILY PRN 06/14/17 09/26/17 Calcium/Magnesium/Zinc 1 tab PO TID 06/14/17 09/26/17 [Fexggse-Wjwqwclpb-Ahxp Tablet] Cholecalciferol (Vitamin D3) 400 unit PO DAILY 06/14/17 09/26/17 [Vitamin D3] D-Mannose 2,000 mg PO BID 06/14/17 09/26/17 Glycerin Adult Supp 1 supp IA DAILY PRN 06/14/17 09/26/17 Magnesium Hydroxide [Milk of 30 ml PO DAILY PRN 06/14/17 09/26/17 Magnesia] Nystatin Cream [Mycostatin Cream] 1 applic TOP BID 06/14/17 09/26/17 Ropinirole HCl [Requip] 1 mg PO TIDWM 06/14/17 09/26/17 Acetaminophen with Codeine 1 tab PO PRN PRN MDD 3000 MG APAP 09/26/17 09/26/17 [Tylenol with Codeine #3 Tablet] DULoxetine [Cymbalta] 30 mg PO DAILY 02/14/18 02/14/18 Hydrocodone/Acetaminophen 1 - 2 each PO Q6H PRN #14 tablet 02/14/18 [Hydrocodon-Acetaminophen 5-325] - Allergies Allergies/Adverse Reactions: Allergies Allergy/AdvReac Type Severity Reaction Status Date / Time adhesive tape Allergy Unknown Verified 02/14/18 16:44 aspirin Allergy Unknown Verified 02/14/18 16:44 gabapentin [From Neurontin] Allergy Unknown Verified 02/14/18 16:44 hydromorphone Allergy Unknown Verified 02/14/18 16:44 morphine Allergy Unknown Verified 02/14/18 16:44 Sulfa (Sulfonamide Allergy Unknown Verified 02/14/18 16:44 Antibiotics) - Social History Does the pt smoke?: No Smoking Status: Never smoker Does the pt drink ETOH?: No Does the pt have substance abuse?: No - Immunizations Immunizations are current?: Yes - POLST Patient has POLST: Yes PD ED PE NORMAL - Vitals Vital signs reviewed: Yes - General General: Alert and oriented X 3 (With parkinsonian tremor), No acute distress - HEENT HEENT: PERRL, EOMI - Neck Neck: Supple, no meningeal sign, No bony TTP - Cardiac Cardiac: RRR, No murmur - Respiratory Respiratory: No respiratory distress, Clear bilaterally - Abdomen Abdomen: Normal bowel sounds, Soft, Non tender - Back Back: Other (Tender around the last rib on the right side, posterior axillary line. No overlying ecchymosis.) - Derm Derm: Normal color, Warm and dry - Extremities Extremities: Other (Modest bilateral pitting pedal edema with chronic venous stasis changes.) - Neuro Neuro: Alert and oriented X 3, Normal speech Results - Vitals Vitals: Vital Signs - 24 hr 02/14/18 16:37 Temperature 36.8 C Heart Rate 72 Respiratory 16 Rate Blood Pressure 165/72 H O2 Saturation 99 Oxygen O2 Source Room air - Rads (name of study) R ribs and chest Radiology: EMP read contemporaneously (NAD) PD MEDICAL DECISION MAKING - Sepsis Event Vital Signs: Vital Signs - 24 hr 02/14/18 16:37 Temperature 36.8 C Heart Rate 72 Respiratory 16 Rate Blood Pressure 165/72 H O2 Saturation 99 Oxygen O2 Source Room air Departure - Departure Disposition: 01 Home, Self Care Clinical Impression: Parkinsons disease Contusion, chest wall Qualifiers: Encounter type: initial encounter Laterality: right Qualified Code(s): S20.211A - Contusion of right front wall of thorax, initial encounter Condition: Good Record reviewed to determine appropriate education?: Yes Instructions: ED Contusion Chest Wall Prescriptions: Hydrocodone/Acetaminophen [Hydrocodon-Acetaminophen 5-325] 1 - 2 each PO Q6H PRN #14 tablet PRN Reason: pain Comments: Your blood pressure was elevated today on check into the emergency department. This does not mean that you have hypertension, it is a common phenomenon to come to the emergency department and have elevated blood pressure. I recommend that you see your primary care physician within the week to have it rechecked when you are feeling better.
--- NOTE | 2018-02-14 17:27 | XRAY Report ---
Reason: low r rib inj Procedure Date: 02/14/2018 Accession Number: [id number] / [id number] Procedure: XR - Ribs w/PA Chest RT CPT Code: FULL RESULT: EXAM: CHEST AND RIGHT RIB RADIOGRAPHY EXAM DATE: 02/14/2018 05:15 PM. CLINICAL HISTORY: Low r rib inj. Fall. Posterior right lower rib pain. COMPARISON: 02/08/2017. TECHNIQUE: 1 view of the chest and 2 views of the ribs. FINDINGS: Bones: Normal. No fracture or bone lesion. Lungs: No focal opacities. No pneumothorax. No pleural effusions. Mediastinum: Heart and mediastinal contours are unremarkable. Mild aortic arch calcification. Other: None. IMPRESSION: Normal chest and rib radiography. RAD[facility]
[2018-02-14 18:21] VITALS: BP 148/79
== END 2018-02-14 18:20 | disposition home or self-care (01) ==
LOC: EDUNIT# → ED 16:36
DX: G20 Parkinson's disease (principal); S20.211A Contusion of right front wall of thorax, initial encounter; W01.198A Fall on same level from slipping, tripping and stumbling with subsequent striking against other object, initial encounter; Y92.091 Bathroom in other non-institutional residence as the place of occurrence of the external cause; I10 Essential (primary) hypertension; I48.91 Unspecified atrial fibrillation; Z79.01 Long term (current) use of anticoagulants
CPT/HCPCS: 71101; 99283; A9270

== ENCOUNTER 2018-04-10 07:49 | Outpatient (CLI) | payer MEDICARE, OTHER, MEDICAID ==
[2018-04-10 09:07] LABS: BILIRUBIN,URINE NEGATIVE (NEGATIVE); GLUCOSE, URINE (UA) NEGATIVE (NEGATIVE); KETONES,URINE (UA) NEGATIVE (NEGATIVE); LEUKOCYTE ESTERASE, URINE NEGATIVE (NEGATIVE); NITRITE,URINE NEGATIVE (NEGATIVE); OCCULT BLOOD,URINE NEGATIVE (NEGATIVE); PROTEIN,URINE NEGATIVE (NEGATIVE); UROBILINOGEN,URINE 0.2 (NORMAL) E.U./dL (NORMAL)
[2018-04-10 09:15] LABS: CLARITY,URINE CLEAR (CLEAR)
== END 2018-04-10 07:50 ==
LOC: LAB.R 07:49
DX: N39.0 Urinary tract infection, site not specified (principal)
CPT/HCPCS: 81001; 81003; 87086

== ENCOUNTER 2018-07-12 08:00 | Outpatient (CLI) | payer MEDICARE, OTHER, MEDICAID ==
[2018-07-12 13:52] LABS: BILIRUBIN,URINE NEGATIVE (NEGATIVE); GLUCOSE, URINE (UA) NEGATIVE (NEGATIVE); KETONES,URINE (UA) NEGATIVE (NEGATIVE); LEUKOCYTE ESTERASE, URINE NEGATIVE (NEGATIVE); NITRITE,URINE NEGATIVE (NEGATIVE); OCCULT BLOOD,URINE NEGATIVE (NEGATIVE); PROTEIN,URINE NEGATIVE (NEGATIVE); UROBILINOGEN,URINE 0.2 (NORMAL) E.U./dL (NORMAL)
[2018-07-12 14:40] LABS: CLARITY,URINE HAZY (CLEAR)
[2018-07-12 14:41] LABS: BACTERIA,URINE Moderate /HPF (None Seen); RBC,URINE 0-5 /HPF (0-5); SQUAMOUS EPITHELIAL CELL,UR MOD Squamous (<= Few)
== END 2018-07-12 23:59 | disposition home or self-care (01) ==
LOC: LAB.R 08:00
DX: N39.0 Urinary tract infection, site not specified (principal)
CPT/HCPCS: 81001; 81003; 87086

== ENCOUNTER 2018-07-31 13:30 | Outpatient (CLI) | payer MEDICARE, OTHER, MEDICAID ==
[2018-07-31 14:20] LABS: BILIRUBIN,URINE NEGATIVE (NEGATIVE); GLUCOSE, URINE (UA) NEGATIVE (NEGATIVE); KETONES,URINE (UA) NEGATIVE (NEGATIVE); LEUKOCYTE ESTERASE, URINE LARGE (NEGATIVE); NITRITE,URINE NEGATIVE (NEGATIVE); OCCULT BLOOD,URINE TRACE-INTA (NEGATIVE); PROTEIN,URINE NEGATIVE (NEGATIVE); UROBILINOGEN,URINE 0.2 (NORMAL) E.U./dL (NORMAL)
[2018-07-31 14:33] LABS: BACTERIA,URINE None Seen /HPF (None Seen); CLARITY,URINE HAZY (CLEAR); RBC,URINE 0-5 /HPF (0-5); SQUAMOUS EPITHELIAL CELL,UR FEW Squamous (<= Few)
== END 2018-07-31 23:59 | disposition home or self-care (01) ==
LOC: LAB.R 13:30
PROVIDERS: ATTEND Internal Medicine
DX: N39.0 Urinary tract infection, site not specified (principal)
CPT/HCPCS: 81001

== ENCOUNTER 2018-08-06 19:05 | Outpatient (CLI) | payer MEDICARE, OTHER, MEDICAID ==
[2018-08-06 20:22] LABS: BILIRUBIN,URINE NEGATIVE (NEGATIVE); GLUCOSE, URINE (UA) NEGATIVE (NEGATIVE); KETONES,URINE (UA) NEGATIVE (NEGATIVE); LEUKOCYTE ESTERASE, URINE SMALL (NEGATIVE); NITRITE,URINE NEGATIVE (NEGATIVE); OCCULT BLOOD,URINE NEGATIVE (NEGATIVE); PH,URINE 7.5 PH (5.0-7.5); PROTEIN,URINE NEGATIVE (NEGATIVE); UROBILINOGEN,URINE 0.2 (NORMAL) E.U./dL (NORMAL)
[2018-08-06 20:30] LABS: CLARITY,URINE CLEAR (CLEAR)
[2018-08-06 20:31] LABS: RBC,URINE None Seen /HPF (0-5); SQUAMOUS EPITHELIAL CELL,UR FEW Squamous (<= Few)
[2018-08-06 20:32] LABS: BACTERIA,URINE Many /HPF (None Seen); WBC CLUMPS,URINE PRESENT
== END 2018-08-06 23:59 | disposition home or self-care (01) ==
LOC: LAB.R 19:05
PROVIDERS: ATTEND Internal Medicine
DX: N39.0 Urinary tract infection, site not specified (principal)
CPT/HCPCS: 81001; 81003; 87077; 87086; 87181

== ENCOUNTER 2018-08-14 14:15 | Outpatient (CLI) | payer MEDICARE, OTHER, MEDICAID ==
[2018-08-14 16:54] LABS: BASOPHILS % (AUTO) 0.8 %; EOSINOPHILS # (AUTO) 0.1 10^3/uL (0.0-0.7); EOSINOPHILS % (AUTO) 1.5 %; HGB - HEMOGLOBIN 11.8 g/dL (12.0-16.0); LYMPHOCYTES # (AUTO) 1.7 10^3/uL (1.5-3.5); LYMPHOCYTES % (AUTO) 28.1 %; MEAN CORPUSCULAR HEMOGLOBIN 28.8 pg (27.0-31.0); MEAN CORPUSCULAR HGB CONC 34.1 g/dL (32.0-36.0); MEAN CORPUSCULAR VOLUME 84.5 fL (81.0-99.0); MEAN PLATELET VOLUME 7.6 fL (7.9-10.8); MONOCYTES # (AUTO) 0.5 10^3/uL (0.0-1.0); MONOCYTES % (AUTO) 9.1 %; NEUTROPHILS # (AUTO) 3.6 10^3/uL (1.5-6.6); NEUTROPHILS % (AUTO) 60.5 %; PLT - PLATELET COUNT 241 10^3/uL (130-450); RED BLOOD COUNT 4.11 10^6/uL (4.20-5.40); RED CELL DISTRIBUTION WIDTH 14.8 % (12.0-15.0)
[2018-08-14 16:59] LABS: ALBUMIN 3.7 g/dL (3.2-5.5); ALKALINE PHOSPHATASE 65 IU/L (42-121); ALT ALANINE AMINOTRANSFERASE < 10 IU/L (10-60); AST ASPARTATE AMINOTRANSFERASE 17 IU/L (10-42); BILIRUBIN,TOTAL 0.6 mg/dL (0.2-1.0); BUN - BLOOD UREA NITROGEN 24 mg/dL (6-20); CALCIUM 9.5 mg/dL (8.5-10.3); CARBON DIOXIDE - CO2 31 mmol/L (21-32); CHLORIDE 97 mmol/L (101-111); CHOL/HDL RATIO 3.6 (<4.4); CHOLESTEROL 165 mg/dL; CREATININE 1.1 mg/dL (0.4-1.0); GFR - MDRD 47 (>89); GLUCOSE 112 mg/dL (70-100); HDL CHOLESTEROL 46 mg/dL; LDL CHOLESTEROL,CALCULATED 85 mg/dL; LDL/HDL RATIO 1.8 (<4.4); SODIUM 137 mmol/L (135-145); TOTAL PROTEIN 7.3 g/dL (6.7-8.2); VLDL CHOLESTEROL 34 mg/dL
[2018-08-14 17:11] LABS: THYROID STIMULATING HORMONE 1.04 uIU/mL (0.34-5.60)
[2018-08-14 17:13] LABS: FREE T4 (FREE THYROXINE) 1.23 ng/dL (0.58-1.64)
[2018-08-14 17:35] LABS: HB2 TOTAL 13.5 g/dL; HEMOGLOBIN A1C 0.54 g/dL; HEMOGLOBIN A1C % 5.8 % (4.6-6.2)
== END 2018-08-14 23:59 | disposition home or self-care (01) ==
LOC: LAB.R 14:15
DX: I11.9 Hypertensive heart disease without heart failure (principal); I48.0 Paroxysmal atrial fibrillation; Z13.220 Encounter for screening for lipoid disorders; E07.9 Disorder of thyroid, unspecified; E11.65 Type 2 diabetes mellitus with hyperglycemia; L03.116 Cellulitis of left lower limb; R60.9 Edema, unspecified
CPT/HCPCS: 80053; 80061; 83036; 83721; 84439; 84443; 85025

== ENCOUNTER 2018-08-23 10:54 | Outpatient (CLI) | payer MEDICARE, OTHER, MEDICAID ==
[2018-08-23 15:06] LABS: BILIRUBIN,URINE NEGATIVE (NEGATIVE); GLUCOSE, URINE (UA) NEGATIVE (NEGATIVE); KETONES,URINE (UA) NEGATIVE (NEGATIVE); LEUKOCYTE ESTERASE, URINE NEGATIVE (NEGATIVE); NITRITE,URINE NEGATIVE (NEGATIVE); OCCULT BLOOD,URINE NEGATIVE (NEGATIVE); PH,URINE 5.5 PH (5.0-7.5); PROTEIN,URINE NEGATIVE (NEGATIVE); UROBILINOGEN,URINE 0.2 (NORMAL) E.U./dL (NORMAL)
[2018-08-23 15:18] LABS: CLARITY,URINE HAZY (CLEAR)
[2018-08-23 15:19] LABS: BACTERIA,URINE None Seen /HPF (None Seen); RBC,URINE None Seen /HPF (0-5); SQUAMOUS EPITHELIAL CELL,UR MOD Squamous (<= Few)
== END 2018-08-23 23:59 ==
LOC: LAB.R 10:54
DX: N39.0 Urinary tract infection, site not specified (principal)
CPT/HCPCS: 81001; 87086

== ENCOUNTER 2018-09-10 08:29 | Emergency (ER) | payer MEDICARE, OTHER, MEDICAID ==
--- NOTE | 2018-09-10 09:42 | ED Physician Documentation ---
History of Present Illness - Stated complaint Stated Complaint: SENT BY CHERELLEaihuishou - Chief complaint Chief Complaint: Ext Problem - History obtained from History obtained from: Patient, EMS - History of Present Illness Timing: Today - Additonal information Additional information: 83-year-old female who is a resident of [facility] has developed swelling and redness to both of her lower extremities. She is sent to the hospital here for evaluation of DVT. Review of Systems Constitutional: denies: Fever, Chills, Myalgias Eyes: denies: Decreased vision Ears: denies: Ear pain Nose: denies: Rhinorrhea / runny nose, Congestion Throat: denies: Sore throat Cardiac: denies: Chest pain / pressure, Palpitations Respiratory: denies: Dyspnea, Cough GI: denies: Abdominal Pain, Nausea, Vomiting : denies: Dysuria, Frequency Skin: denies: Rash Musculoskeletal: reports: Extremity pain, Extremity swelling. 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: Hysterectomy HEENT: Tonsil/Adenoidectomy - Present Medications Home Medications: Ambulatory Orders Medication Instructions Recorded Confirmed Carbidopa/Levodopa 1 tab PO QID 09/16/15 09/10/18 [Carbidopa-Levodopa 25-100 Tab] Potassium Chloride [Klor-Con M20] 20 meq PO DAILY 09/16/15 09/10/18 Propranolol [Inderal] 10 mg ORAL BID 09/16/15 09/10/18 Clopidogrel [Plavix] 75 mg PO DAILY 12/13/15 09/10/18 Furosemide 40 mg PO DAILY 12/13/15 09/10/18 diazePAM [Diazepam] 2.5 mg PO QPM 12/13/15 09/10/18 Ascorbic Acid 500 mg PO DAILY 06/14/17 09/10/18 Calcium Antacid Chewable 750 mg PO DAILY PRN 06/14/17 09/10/18 Calcium/Magnesium/Zinc 1 tab PO TID 06/14/17 09/10/18 [Mbneooz-Sggznaqbo-Hyxf Tablet] Cholecalciferol (Vitamin D3) 400 unit PO DAILY 06/14/17 09/10/18 [Vitamin D3] D-Mannose 2,000 mg PO BID 06/14/17 09/10/18 Glycerin Adult Supp 1 supp IA DAILY PRN 06/14/17 09/10/18 Magnesium Hydroxide [Milk of 30 ml PO DAILY PRN 06/14/17 09/10/18 Magnesia] Ropinirole HCl [Requip] 1 mg PO TIDWM 06/14/17 09/10/18 DULoxetine [Cymbalta] 30 mg PO DAILY 02/14/18 09/10/18 Diphenhydramine HCl [Allergy 25 mg PO Q6HR PRN 03/15/18 09/10/18 Medication] Sennosides [Senna Laxative] 1 - 2 tab PO DAILY PRN 03/15/18 09/10/18 Amox/Clav 875/125 [Augmentin] 1 each PO Q12H #20 tablet 09/10/18 - Allergies Allergies/Adverse Reactions: Allergies Allergy/AdvReac Type Severity Reaction Status Date / Time adhesive tape Allergy Unknown Verified 09/10/18 08:49 aspirin Allergy Unknown Verified 09/10/18 08:49 gabapentin [From Neurontin] Allergy Unknown Verified 09/10/18 08:49 hydromorphone Allergy Unknown Verified 09/10/18 08:49 morphine Allergy Unknown Verified 09/10/18 08:49 Sulfa (Sulfonamide Allergy Unknown Verified 09/10/18 08:49 Antibiotics) - Social History Does the pt smoke?: No Smoking Status: Never smoker Does the pt drink ETOH?: No Does the pt have substance abuse?: No - Immunizations Immunizations are current?: Yes - POLST Patient has POLST: Yes PD ED PE NORMAL - Vitals Vital signs reviewed: Yes (hypertensive ) - General General: No acute distress, Well developed/nourished, Other (slight delay in execution of motor commands. ) - HEENT HEENT: Atraumatic, PERRL, EOMI - Respiratory Respiratory: No respiratory distress - Derm Derm: Normal color, Warm and dry - Extremities Extremities: Other (There is edema bilaterally with anterior calf redness and tenderness consistent with bilateral cellulitis. There is no tenderness to the posterior calf. 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, No motor deficit, No sensory deficit, Normal speech Eye Opening: Spontaneous Motor: Obeys Commands Verbal: Oriented GCS Score: 15 - Psych Psych: Normal mood, Normal affect Results - Vitals Vitals: Vital Signs - 24 hr 09/10/18 09/10/18 08:45 10:27 Temperature 36.0 C L Heart Rate 75 67 Respiratory 16 18 Rate Blood Pressure 154/93 H 155/85 H O2 Saturation 98 100 Oxygen O2 Source Room air - Rads (name of study) duplex ultrasound Radiology: Prelim report reviewed (Impression: No evidence for deep venous thrombosis bilaterally.), EMP read indepedently, See rad report PD MEDICAL DECISION MAKING - ED course Complexity details: reviewed old records, reviewed results, re-evaluated patient, considered differential, d/w patient ED course: 83-year-old female with bilateral lower extremity erythema and swelling has cellulitis to both calves and she is administered Rocephin IM. She has no evidence of deep venous thrombosis. Departure - Departure Disposition: 01 Home, Self Care Clinical Impression: Cellulitis Qualifiers: Site of cellulitis: extremity Site of cellulitis of extremity: lower extremity Laterality: unspecified laterality Qualified Code(s): L03.119 - Cellulitis of unspecified part of limb Condition: Stable Instructions: ED Infec Skin Cellulitis Follow-Up: Eliazar Buchanan MD [Primary Care Provider] - Prescriptions: Amox/Clav 875/125 [Augmentin] 1 each PO Q12H #20 tablet
[2018-09-10] MEDS ORDERED: LIDOCAINE 1% 2 ML VIAL MC ONE (10:30)
[2018-09-10] MEDS ORDERED: cefTRIAXone 1 GM VIAL IM STA (10:30)
--- NOTE | 2018-09-10 10:50 | Ultrasound Report ---
Reason: swelling and redness bilat Procedure Date: 09/10/2018 Accession Number: [id number] / [id number] Procedure: US - Duplex Ext Veins Bilateral CPT Code: FULL RESULT: EXAM: BILATERAL LOWER EXTREMITY VENOUS ULTRASOUND EXAM DATE: 09/10/2018 10:36 AM. CLINICAL HISTORY: Swelling and redness bilat. COMPARISON: None. TECHNIQUE: Real-time sonographic vascular imaging was performed by the cash controller through the lower extremities utilizing both color-flow and Doppler spectral analysis. Multiple senior sales representative static images were saved for review. FINDINGS: Right: Common Femoral Vein (CFV): Normal. CFV-GSV Junction: Normal. Profunda Femoral Vein (PFV): Normal. Femoral Vein (FV) Prox: Normal. Femoral Vein (FV) Mid: Normal. Femoral Vein (FV) Dist: Normal. Popliteal Vein: Normal. Posterior Tibial Veins: Normal. Peroneal Veins: Normal. Left: Common Femoral Vein (CFV): Normal. CFV-GSV Junction: Normal. Profunda Femoral Vein (PFV): Normal. Femoral Vein (FV) Prox: Normal. Femoral Vein (FV) Mid: Normal. Femoral Vein (FV) Dist: Normal. Popliteal Vein: Normal. Posterior Tibial Veins: Normal. Peroneal Veins: Normal. Other: Bilateral subcutaneous soft tissue edema seen on the left greater than right leg. IMPRESSION: No evidence for deep venous thrombosis bilaterally. RADIA
[2018-09-10 11:29] VITALS: BP 155/68
== END 2018-09-10 11:30 | disposition home or self-care (01) ==
LOC: ED 08:29
DX: L03.116 Cellulitis of left lower limb (principal); L03.115 Cellulitis of right lower limb; I10 Essential (primary) hypertension
CPT/HCPCS: 93970; 96372; 99283

== ENCOUNTER 2018-09-27 08:00 | Outpatient (CLI) | payer MEDICARE, OTHER, MEDICAID ==
[2018-09-27 20:00] LABS: CALCIUM 9.4 mg/dL (8.5-10.3); CREATININE 1.3 mg/dL (0.4-1.0)
== END 2018-09-27 08:01 | disposition home or self-care (01) ==
LOC: LAB.R 08:00
DX: G89.29 Other chronic pain (principal)
CPT/HCPCS: 80048

== ENCOUNTER 2018-10-02 08:30 | Outpatient (CLI) | payer MEDICARE, OTHER, MEDICAID | END 2018-10-02 08:31 | disposition home or self-care (01) | LOC: DI 08:30 | PROVIDERS: ATTEND Internal Medicine | DX: I11.9 Hypertensive heart disease without heart failure (principal); I34.0 Nonrheumatic mitral (valve) insufficiency | CPT/HCPCS: 93306 ==

== ENCOUNTER 2018-10-12 14:00 | Outpatient (CLI) | payer MEDICARE, OTHER, MEDICAID ==
[2018-10-12 17:44] LABS: CALCIUM 9.5 mg/dL (8.5-10.3); CREATININE 1.4 mg/dL (0.4-1.0)
== END 2018-10-12 23:59 | disposition home or self-care (01) ==
LOC: LAB.R 14:00
PROVIDERS: ATTEND Internal Medicine
DX: I50.9 Heart failure, unspecified (principal)
CPT/HCPCS: 80048; 83880

== ENCOUNTER 2018-11-08 08:00 | Outpatient (CLI) | payer MEDICARE, OTHER, MEDICAID ==
[2018-11-08 06:48] LABS: BILIRUBIN,URINE NEGATIVE (NEGATIVE); GLUCOSE, URINE (UA) NEGATIVE (NEGATIVE); KETONES,URINE (UA) NEGATIVE (NEGATIVE); LEUKOCYTE ESTERASE, URINE TRACE (NEGATIVE); NITRITE,URINE NEGATIVE (NEGATIVE); OCCULT BLOOD,URINE NEGATIVE (NEGATIVE); PH,URINE 5.5 PH (5.0-7.5); PROTEIN,URINE NEGATIVE (NEGATIVE); UROBILINOGEN,URINE 0.2 (NORMAL) E.U./dL (NORMAL)
[2018-11-08 06:52] LABS: CLARITY,URINE CLEAR (CLEAR)
[2018-11-08 07:04] LABS: BACTERIA,URINE Rare /HPF (None Seen); RBC,URINE 0-5 /HPF (0-5); SQUAMOUS EPITHELIAL CELL,UR FEW Squamous (<= Few)
[2018-11-08 07:05] LABS: CASTS, URINE 6-10 Hyaline Casts /LPF; WBC CLUMPS,URINE PRESENT
== END 2018-11-08 23:59 | disposition home or self-care (01) ==
LOC: LAB.R 08:00
PROVIDERS: ATTEND Internal Medicine
DX: R30.0 Dysuria (principal)
CPT/HCPCS: 81001; 81003; 87086

== ENCOUNTER 2018-11-12 08:00 | Outpatient (CLI) | payer MEDICARE, OTHER, MEDICAID ==
[2018-11-12 17:13] LABS: BILIRUBIN,URINE NEGATIVE (NEGATIVE); GLUCOSE, URINE (UA) NEGATIVE (NEGATIVE); KETONES,URINE (UA) NEGATIVE (NEGATIVE); LEUKOCYTE ESTERASE, URINE SMALL (NEGATIVE); NITRITE,URINE NEGATIVE (NEGATIVE); OCCULT BLOOD,URINE NEGATIVE (NEGATIVE); PROTEIN,URINE NEGATIVE (NEGATIVE); UROBILINOGEN,URINE 0.2 (NORMAL) E.U./dL (NORMAL)
[2018-11-12 17:26] LABS: BACTERIA,URINE Moderate /HPF (None Seen); CLARITY,URINE HAZY (CLEAR); RBC,URINE 0-5 /HPF (0-5); SQUAMOUS EPITHELIAL CELL,UR FEW Squamous (<= Few)
== END 2018-11-12 23:59 | disposition home or self-care (01) ==
LOC: LAB.R 08:00
DX: R30.0 Dysuria (principal)
CPT/HCPCS: 81001; 81003; 87077; 87086; 87181

== ENCOUNTER 2019-01-23 23:25 | Outpatient (CLI) | payer MEDICARE, OTHER, MEDICAID ==
[2019-01-24 00:33] LABS: BILIRUBIN,URINE NEGATIVE (NEGATIVE); GLUCOSE, URINE (UA) NEGATIVE (NEGATIVE); KETONES,URINE (UA) NEGATIVE (NEGATIVE); LEUKOCYTE ESTERASE, URINE TRACE (NEGATIVE); NITRITE,URINE NEGATIVE (NEGATIVE); OCCULT BLOOD,URINE NEGATIVE (NEGATIVE); PROTEIN,URINE NEGATIVE (NEGATIVE); UROBILINOGEN,URINE 0.2 (NORMAL) E.U./dL (NORMAL)
[2019-01-24 00:35] LABS: CLARITY,URINE CLEAR (CLEAR)
[2019-01-24 00:41] LABS: BACTERIA,URINE Few /HPF (None Seen); RBC,URINE 0-5 /HPF (0-5); SQUAMOUS EPITHELIAL CELL,UR FEW Squamous (<= Few)
== END 2019-01-23 23:59 | disposition home or self-care (01) ==
LOC: LAB.R 23:25
DX: R39.0 Extravasation of urine (principal)
CPT/HCPCS: 81001; 81003; 87086

== ENCOUNTER 2019-01-27 15:40 | Outpatient (CLI) | payer MEDICARE, OTHER, MEDICAID ==
[2019-01-27 18:17] LABS: BILIRUBIN,URINE NEGATIVE (NEGATIVE); GLUCOSE, URINE (UA) NEGATIVE (NEGATIVE); KETONES,URINE (UA) NEGATIVE (NEGATIVE); LEUKOCYTE ESTERASE, URINE NEGATIVE (NEGATIVE); NITRITE,URINE NEGATIVE (NEGATIVE); OCCULT BLOOD,URINE NEGATIVE (NEGATIVE); PROTEIN,URINE NEGATIVE (NEGATIVE); UROBILINOGEN,URINE 0.2 (NORMAL) E.U./dL (NORMAL)
[2019-01-27 18:19] LABS: CLARITY,URINE CLEAR (CLEAR)
== END 2019-01-27 23:59 | disposition home or self-care (01) ==
LOC: LAB.R 15:40
DX: N39.0 Urinary tract infection, site not specified (principal)
CPT/HCPCS: 81001; 81003; 87086

== ENCOUNTER 2019-02-17 13:23 | Outpatient (CLI) | payer MEDICARE, OTHER, MEDICAID | END 2019-02-17 13:24 | disposition critical access hospital (66) | LOC: EMS 13:23 | PROVIDERS: ATTEND Surgery | DX: R07.9 Chest pain, unspecified (principal) | CPT/HCPCS: A0425; A0429 ==

== ENCOUNTER 2019-02-17 13:28 | Emergency (ER) | payer MEDICARE, OTHER, MEDICAID ==
--- NOTE | 2019-02-17 14:27 | XRAY Report ---
Reason: Chest Pain Procedure Date: 02/17/2019 Accession Number: [id number] / [id number] Procedure: XR - Chest 1 View X-Ray CPT Code: 98337 FULL RESULT: EXAM: CHEST RADIOGRAPHY EXAM DATE: 02/17/2019 02:18 PM. CLINICAL HISTORY: Chest Pain. COMPARISON: CHEST 1 VIEW 02/08/2017 9:05 AM. TECHNIQUE: 1 view. FINDINGS: Lungs/Pleura: Prominent lung markings in right mid to lower lung zone. No consolidation, effusion, or pneumothorax. Mediastinum: Within exam limitations, the cardiomediastinal contour is normal. Upper lobe vessels not distended. Other: Degenerative changes. IMPRESSION: Possible atelectasis or infiltrate on the right, versus chronic change. RADIA
--- NOTE | 2019-02-17 14:40 | ED Physician Documentation ---
History of Present Illness - Stated complaint Stated Complaint: CP - Chief complaint Chief Complaint: Cardiac - History obtained from History obtained from: Patient - History of Present Illness Timing: Today, How many hours ago (3) Pain level max: 2 Pain level now: 0 Improved by: nothing Worsened by: nothing - Additonal information Additional information: 84-year-old female presents the emergency department stating that while she was getting her legs wrapped at her doctor's office this morning she had left-sided chest pressure. Rated as a 2 out of 10. Nonradiating. She also has had left arm pain worse with movement and palpation for the past 5 days. This was not related to the chest pain. Patient denies any cardiac history. Denies any history of stents. States that she does not see a java support engineer. She is currently symptom-free. Chest pressure lasted approximately 30 minutes. No difficulty breathing. No diaphoresis. No nausea or vomiting. 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 : None HEENT: None Musculoskeletal: Osteoarthritis Derm: None - Past Surgical History Past Surgical History: Yes General: Appendectomy /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: Hysterectomy HEENT: Tonsil/Adenoidectomy - Present Medications Home Medications: Ambulatory Orders Medication Instructions Recorded Confirmed Carbidopa/Levodopa 1 tab PO QID 09/16/15 09/10/18 [Carbidopa-Levodopa 25-100 Tab] Potassium Chloride [Klor-Con M20] 20 meq PO DAILY 09/16/15 09/10/18 Propranolol [Inderal] 10 mg ORAL BID 09/16/15 09/10/18 Clopidogrel [Plavix] 75 mg PO DAILY 12/13/15 09/10/18 Furosemide 40 mg PO DAILY 12/13/15 09/10/18 diazePAM [Diazepam] 2.5 mg PO QPM 12/13/15 09/10/18 Ascorbic Acid 500 mg PO DAILY 06/14/17 09/10/18 Calcium Antacid Chewable 750 mg PO DAILY PRN 06/14/17 09/10/18 Calcium/Magnesium/Zinc 1 tab PO TID 06/14/17 09/10/18 [Mdfrhii-Svwucuade-Azhd Tablet] Cholecalciferol (Vitamin D3) 400 unit PO DAILY 06/14/17 09/10/18 [Vitamin D3] D-Mannose 2,000 mg PO BID 06/14/17 09/10/18 Glycerin Adult Supp 1 supp IA DAILY PRN 06/14/17 09/10/18 Magnesium Hydroxide [Milk of 30 ml PO DAILY PRN 06/14/17 09/10/18 Magnesia] Ropinirole HCl [Requip] 1 mg PO TIDWM 06/14/17 09/10/18 DULoxetine [Cymbalta] 30 mg PO DAILY 02/14/18 09/10/18 Diphenhydramine HCl [Allergy 25 mg PO Q6HR PRN 03/15/18 09/10/18 Medication] Sennosides [Senna Laxative] 1 - 2 tab PO DAILY PRN 03/15/18 09/10/18 Amox/Clav 875/125 [Augmentin] 1 each PO Q12H #20 tablet 09/10/18 - Allergies Allergies/Adverse Reactions: Allergies Allergy/AdvReac Type Severity Reaction Status Date / Time JALEEL Inhibitors Allergy Unknown Verified 02/17/19 13:45 adhesive tape Allergy Unknown Verified 02/17/19 13:45 aspirin Allergy Unknown Verified 02/17/19 13:45 Cephalosporins Allergy Unknown Verified 02/17/19 13:45 gabapentin [From Neurontin] Allergy Unknown Verified 02/17/19 13:45 hydromorphone Allergy Unknown Verified 02/17/19 13:45 morphine Allergy Unknown Verified 02/17/19 13:45 Sulfa (Sulfonamide Allergy Unknown Verified 02/17/19 13:45 Antibiotics) - Social History Does the pt smoke?: No Smoking Status: Never smoker Does the pt drink ETOH?: No Does the pt have substance abuse?: No - Immunizations Immunizations are current?: Yes - POLST Patient has POLST: Yes PD ED PE NORMAL - Vitals Vital signs reviewed: Yes - General General: Alert and oriented X 3, No acute distress, Well developed/nourished - HEENT HEENT: PERRL, Moist mucous membranes - Neck Neck: Supple, no meningeal sign - Cardiac Cardiac: RRR, Strong equal pulses - Respiratory Respiratory: No respiratory distress, Clear bilaterally - Abdomen Abdomen: Soft, Non tender, Non distended - Derm Derm: Warm and dry, No rash - Extremities Extremities: No deformity, Other (significant B edema) - Neuro Neuro: Alert and oriented X 3 - Psych Psych: Normal mood, Normal affect Results - Vitals Vitals: Oxygen O2 Source Room air - EKG (time done) 1358 Rate: Rate (enter#) (69) Rhythm: NSR [place]: Normal Intervals: Normal HI QRS: Normal Ischemia: Normal ST segments - Labs Labs: Laboratory Tests 02/17/19 02/17/19 02/17/19 14:30 14:30 14:30 WBC 8.6 RBC 4.20 Hgb 11.7 L Hct 38.3 MCV 91.2 MCH 27.9 MCHC 30.5 L RDW 14.5 Plt Count 249 MPV 9.3 Neut # (Auto) 5.6 Lymph # (Auto) 2.1 Morton # (Auto) 0.7 Eos # (Auto) 0.1 Baso # (Auto) 0.0 Absolute Nucleated RBC 0.00 Nucleated RBC % 0.0 Sodium 143 Potassium 4.3 Chloride 97 L Carbon Dioxide 36 H Anion Gap 10.0 BUN 33 H Creatinine 1.8 H Estimated GFR (MDRD) 27 L Glucose 136 H Calcium 10.2 Total Bilirubin 0.2 AST 14 ALT < 10 L Alkaline Phosphatase 68 Troponin I High Sens 4.7 Total Protein 8.2 Albumin 4.1 Globulin 4.1 Albumin/Globulin Ratio 1.0 Lipase 16 L 02/17/19 16:25 WBC RBC Hgb Hct MCV MCH MCHC RDW Plt Count MPV Neut # (Auto) Lymph # (Auto) Morton # (Auto) Eos # (Auto) Baso # (Auto) Absolute Nucleated RBC Nucleated RBC % Sodium Potassium Chloride Carbon Dioxide Anion Gap BUN Creatinine Estimated GFR (MDRD) Glucose Calcium Total Bilirubin AST ALT Alkaline Phosphatase Troponin I High Sens 5.1 Total Protein Albumin Globulin Albumin/Globulin Ratio Lipase - Rads (name of study) cxr Radiology: Prelim report reviewed, EMP read contemporaneously, See rad report ( Possible atelectasis or infiltrate on the right, versus chronic change. ) PD MEDICAL DECISION MAKING - ED course Complexity details: reviewed results, re-evaluated patient, considered differential (No ST elevation RI, no aortic dissection, no PE, no tension pneumothorax, no aortic aneurysm), d/w patient ED course: Patient with atypical chest pain today. The arm pain has been going on for several days and is worse with palpation movement. Negative high-sensitivity troponin x2. Does not appear consistent with unstable angina. We will have her follow-up closely with her doctor for further care. Patient counseled regarding signs and symptoms for which I believe and urgent re-evaluation would be necessary. Patient with good understanding of and agreement to plan and is comfortable going home at this time This document was made in part using voice recognition software. While efforts are made to proofread this document, sound alike and grammatical errors may occur. Departure - Departure Disposition: 01 Home, Self Care Clinical Impression: Chest pain Qualifiers: Chest pain type: unspecified Qualified Code(s): R07.9 - Chest pain, unspecified Condition: Good Instructions: ED Chest Pain Atypical Unkn Cause Follow-Up: Yola Cruz MD [Primary Care Provider] - Within 3 Days Comments: The cause of your pain is unclear today. Follow-up with your doctor for further care. Return if you worsen. Your cardiac testing appears normal today. You should have a cardiac stress test with your doctor. Discharge Date/Time: 02/17/19 18:40
[2019-02-17 14:54] LABS: BASOPHILS % (AUTO) 0.2 %; EOSINOPHILS # (AUTO) 0.1 10^3/uL (0.0-0.7); EOSINOPHILS % (AUTO) 1.4 %; HGB - HEMOGLOBIN 11.7 g/dL (12.0-16.0); LYMPHOCYTES # (AUTO) 2.1 10^3/uL (1.5-3.5); LYMPHOCYTES % (AUTO) 23.9 %; MEAN CORPUSCULAR HEMOGLOBIN 27.9 pg (27.0-31.0); MEAN CORPUSCULAR HGB CONC 30.5 g/dL (32.0-36.0); MEAN CORPUSCULAR VOLUME 91.2 fL (81.0-99.0); MEAN PLATELET VOLUME 9.3 fL (7.9-10.8); MONOCYTES # (AUTO) 0.7 10^3/uL (0.0-1.0); MONOCYTES % (AUTO) 8.5 %; NEUTROPHILS # (AUTO) 5.6 10^3/uL (1.5-6.6); NEUTROPHILS % (AUTO) 65.4 %; PLT - PLATELET COUNT 249 10^3/uL (130-450); RED CELL DISTRIBUTION WIDTH 14.5 % (12.0-15.0); WHITE BLOOD COUNT 8.6 x10^3/uL (4.8-10.8)
[2019-02-17 14:55] LABS: ALBUMIN 4.1 g/dL (3.2-5.5); ALKALINE PHOSPHATASE 68 IU/L (42-121); ALT ALANINE AMINOTRANSFERASE < 10 IU/L (10-60); AST ASPARTATE AMINOTRANSFERASE 14 IU/L (10-42); BILIRUBIN,TOTAL 0.2 mg/dL (0.2-1.0); BUN - BLOOD UREA NITROGEN 33 mg/dL (6-20); CALCIUM 10.2 mg/dL (8.5-10.3); CARBON DIOXIDE - CO2 36 mmol/L (21-32); CHLORIDE 97 mmol/L (101-111); CREATININE 1.8 mg/dL (0.4-1.0); GFR - MDRD 27 (>89); GLUCOSE 136 mg/dL (70-100); LIPASE 16 U/L (22-51); SODIUM 143 mmol/L (135-145); TOTAL PROTEIN 8.2 g/dL (6.7-8.2)
[2019-02-17 17:03] VITALS: BP 139/99
== END 2019-02-17 18:40 | disposition home or self-care (01) ==
LOC: EDUNIT# → ED 13:28
DX: R07.89 Other chest pain (principal); M79.602 Pain in left arm; I10 Essential (primary) hypertension; Z79.02 Long term (current) use of antithrombotics/antiplatelets
CPT/HCPCS: 36415; 71045; 80053; 83690; 84484; 85025; 93005; 99283; 99284

== ENCOUNTER 2019-03-10 10:09 | Outpatient (CLI) | payer MEDICARE, OTHER, MEDICAID ==
[2019-03-10] MEDS ORDERED: REGADENOSON 0.4 MG/5 ML SYRINGE IVP ONE (12:14)
[2019-03-10] MEDS ORDERED: AMINOPHYLLINE 250 MG/10 ML VIAL ONE (12:28)
--- NOTE | 2019-03-10 15:30 | CARDIAC PROCEDURE NOTE ---
DATE OF SERVICE: 03/10/2019 Physician: Yola Cruz MD PROCEDURE: Lexiscan. HEART RATE RESPONSE: 86 to maximum of 99. BLOOD PRESSURE RESPONSE: 118/62 to maximum of 120/64. SYMPTOMS: Headache, left jaw pain and lightheadedness. ST SEGMENT RESPONSE: No significant ST-segment elevation or depression. ARRHYTHMIAS: None detected. IMPRESSION: No chest pain, but some jaw pain. No significant EKG changes. CONCLUSION: Await imaging studies. TD: 03/10/2019 12:58
--- NOTE | 2019-03-10 15:38 | Nuclear Medicine Report ---
Reason: TOBACCO SMOKER Procedure Date: 03/10/2019 Accession Number: [id number] / [id number] Procedure: NM - Myocardial Perfusion STR/RST CPT Code: FULL RESULT: EXAM: SINGLE-ISOTOPE PHARMACOLOGICAL STRESS TEST WITH REGADENOSON. SINGLE-ISOTOPE AND TWO-DAY REST/STRESS MYOCARDIAL PERFUSION SCANS WITH TOMOGRAPHIC IMAGING, QUANTITATIVE ANALYSIS, WALL MOTION ANALYSIS AND CALCULATION OF EJECTION FRACTION. EXAM DATE: 03/10/2019 02:13 PM. CLINICAL HISTORY: TOBACCO SMOKER. COMPARISON: None. TECHNIQUE: A pharmacological stress was performed with the infusion of 0.4 mg regadenoson per protocol. According to protocol, 10.3 mCi of Tc-99m sestamibi was injected for stress myocardial perfusion scan. Motion correction was applied when appropriate. The following day after the intravenous administration of 43.4 mCi of Tc-99m sestamibi, a rest myocardial perfusion scan was done with tomography. Motion correction was applied when appropriate. Gated tomographic images were obtained for wall motion analysis and computation of left ventricular ejection fraction. FINDINGS: Perfusion images: Left ventricular chamber size appears normal at rest and unchanged at stress. No convincing fixed perfusion deficits. No convincing reversible perfusion deficits. SSS 7, SRS 1, SDS 6. Gated images: No convincing focal wall motion abnormality. Calculated left ventricular EDV 61 mL, ESV 9 mL. The left ventricular ejection fraction is estimated at 85% (normal > 50%). IMPRESSION: 1. No convincing reversible perfusion deficits to indicate stress-induced ischemia. 2. No convincing fixed perfusion deficits. 3. Left ventricular ejection fraction of 85% (normal > 50%). Please correlate findings with stress ECG tracings and procedure notes. RADIA
[2019-03-11] MEDS ORDERED: REGADENOSON 0.4 MG/5 ML SYRINGE IVP ONE (11:15)
== END 2019-03-10 10:10 | disposition home or self-care (01) ==
LOC: DI 10:09
PROVIDERS: ATTEND Internal Medicine
DX: R07.9 Chest pain, unspecified (principal); R51 Headache; R68.84 Jaw pain; R42 Dizziness and giddiness
CPT/HCPCS: 78452; 93017; A9500; J2785

== ENCOUNTER 2019-05-06 12:20 | Outpatient (CLI) | payer MEDICARE, OTHER, MEDICAID ==
--- NOTE | 2019-05-07 09:13 | XRAY Report ---
Reason: RT HIP PAIN Procedure Date: 05/06/2019 Accession Number: [id number] / [id number] Procedure: XR - Hip w/Pelvis 2-3V RT CPT Code: Final Report FULL RESULT: EXAM: RIGHT HIP RADIOGRAPHY EXAM DATE: 05/06/2019 12:53 PM. CLINICAL HISTORY: Right hip pain. COMPARISON: 07/18/2016. TECHNIQUE: 2 views. FINDINGS: Bones: No acute fractures or bone lesion. Joints: Moderate narrowing of the right hip joint space. No subluxation. Soft Tissues: Egg-shell type calcification appears stable in the soft tissues anterior to the right iliac wing. IMPRESSION: Stable moderate degenerative changes at the right hip. RADIA
== END 2019-05-06 12:21 | disposition home or self-care (01) ==
LOC: DI 12:20
PROVIDERS: ATTEND Internal Medicine
DX: M16.11 Unilateral primary osteoarthritis, right hip (principal)

== ENCOUNTER 2019-07-29 14:55 | Outpatient (CLI) | payer MEDICARE, OTHER ==
[2019-07-29 16:21] LABS: CALCIUM 9.2 mg/dL (8.5-10.3); CREATININE 1.7 mg/dL (0.4-1.0)
== END 2019-07-29 23:59 | disposition home or self-care (01) ==
LOC: LAB.R 14:55
PROVIDERS: ATTEND Family Medicine
DX: I11.9 Hypertensive heart disease without heart failure (principal)
CPT/HCPCS: 80048

== ENCOUNTER 2019-09-10 14:30 | Outpatient (CLI) | payer MEDICARE, OTHER, MEDICAID ==
[2019-09-10 15:50] LABS: BILIRUBIN,URINE NEGATIVE (NEGATIVE); GLUCOSE, URINE (UA) NEGATIVE (NEGATIVE); KETONES,URINE (UA) NEGATIVE (NEGATIVE); LEUKOCYTE ESTERASE, URINE LARGE (NEGATIVE); NITRITE,URINE NEGATIVE (NEGATIVE); OCCULT BLOOD,URINE NEGATIVE (NEGATIVE); PROTEIN,URINE 30 mg/dL (NEGATIVE); UROBILINOGEN,URINE 0.2 (NORMAL) E.U./dL (NORMAL)
[2019-09-10 15:58] LABS: CLARITY,URINE CLOUDY (CLEAR)
[2019-09-10 15:59] LABS: BACTERIA,URINE Many /HPF (None Seen); RBC,URINE 0-5 /HPF (0-5); SQUAMOUS EPITHELIAL CELL,UR RARE Squamous (<= Few)
== END 2019-09-10 23:59 | disposition home or self-care (01) ==
LOC: LAB.R 14:30
DX: N39.0 Urinary tract infection, site not specified (principal)
CPT/HCPCS: 81001; 81003; 87077; 87086; 87181

== ENCOUNTER 2019-09-22 14:22 | Outpatient (CLI) | payer MEDICARE, OTHER, MEDICAID ==
[2019-09-22 16:17] LABS: BASOPHILS % (AUTO) 0.4 %; EOSINOPHILS # (AUTO) 0.2 10^3/uL (0.0-0.7); EOSINOPHILS % (AUTO) 1.4 %; HGB - HEMOGLOBIN 10.2 g/dL (12.0-16.0); LYMPHOCYTES # (AUTO) 2.4 10^3/uL (1.5-3.5); LYMPHOCYTES % (AUTO) 22.2 %; MEAN CORPUSCULAR HEMOGLOBIN 25.7 pg (27.0-31.0); MEAN CORPUSCULAR HGB CONC 29.4 g/dL (32.0-36.0); MEAN CORPUSCULAR VOLUME 87.4 fL (81.0-99.0); MEAN PLATELET VOLUME 9.8 fL (7.9-10.8); MONOCYTES # (AUTO) 0.8 10^3/uL (0.0-1.0); MONOCYTES % (AUTO) 7.5 %; NEUTROPHILS # (AUTO) 7.3 10^3/uL (1.5-6.6); PLT - PLATELET COUNT 313 10^3/uL (130-450); RED BLOOD COUNT 3.97 10^6/uL (4.20-5.40); RED CELL DISTRIBUTION WIDTH 15.1 % (12.0-15.0); WHITE BLOOD COUNT 10.7 x10^3/uL (4.8-10.8)
[2019-09-22 16:24] LABS: ALBUMIN 3.1 g/dL (3.2-5.5); ALBUMIN/GLOBULIN RATIO 0.7 (1.0-2.2); ALKALINE PHOSPHATASE 60 IU/L (42-121); ALT ALANINE AMINOTRANSFERASE < 10 IU/L (10-60); AST ASPARTATE AMINOTRANSFERASE 13 IU/L (10-42); BILIRUBIN,TOTAL 0.8 mg/dL (0.2-1.0); BUN - BLOOD UREA NITROGEN 28 mg/dL (6-20); CALCIUM 8.5 mg/dL (8.5-10.3); CARBON DIOXIDE - CO2 29 mmol/L (21-32); CHLORIDE 99 mmol/L (101-111); CREATININE 1.4 mg/dL (0.4-1.0); GLUCOSE 149 mg/dL (70-100); SODIUM 135 mmol/L (135-145); TOTAL PROTEIN 7.3 g/dL (6.7-8.2)
== END 2019-09-22 23:59 | disposition home or self-care (01) ==
LOC: LAB.R 14:22
PROVIDERS: ATTEND Family Medicine
DX: R44.2 Other hallucinations (principal)
CPT/HCPCS: 80053; 85025

== ENCOUNTER 2019-09-29 18:30 | Outpatient (CLI) | payer MEDICARE, OTHER, MEDICAID ==
[2019-09-29 19:07] LABS: CREATININE 1.5 mg/dL (0.4-1.0)
== END 2019-09-29 23:59 | disposition home or self-care (01) ==
LOC: LAB.R 18:30
PROVIDERS: ATTEND Family Medicine
DX: R60.9 Edema, unspecified (principal)
CPT/HCPCS: 80048

== ENCOUNTER 2019-10-09 08:00 | Outpatient (CLI) | payer MEDICARE, OTHER, MEDICAID ==
[2019-10-09 17:10] LABS: CREATININE 1.5 mg/dL (0.4-1.0)
== END 2019-10-09 23:59 | disposition home or self-care (01) ==
LOC: LAB.R 08:00
DX: R60.9 Edema, unspecified (principal)
CPT/HCPCS: 80048

== ENCOUNTER 2019-10-29 16:10 | Outpatient (CLI) | payer MEDICARE, OTHER, MEDICAID ==
[2019-10-29 16:52] LABS: BASOPHILS % (AUTO) 0.6 %; EOSINOPHILS # (AUTO) 0.2 10^3/uL (0.0-0.7); EOSINOPHILS % (AUTO) 3.4 %; HGB - HEMOGLOBIN 11.3 g/dL (12.0-16.0); LYMPHOCYTES # (AUTO) 2.1 10^3/uL (1.5-3.5); LYMPHOCYTES % (AUTO) 29.3 %; MEAN CORPUSCULAR HEMOGLOBIN 27.5 pg (27.0-31.0); MEAN CORPUSCULAR HGB CONC 30.9 g/dL (32.0-36.0); MEAN CORPUSCULAR VOLUME 89.1 fL (81.0-99.0); MONOCYTES # (AUTO) 0.8 10^3/uL (0.0-1.0); NEUTROPHILS # (AUTO) 3.9 10^3/uL (1.5-6.6); PLT - PLATELET COUNT 261 10^3/uL (130-450); RED BLOOD COUNT 4.11 10^6/uL (4.20-5.40); RED CELL DISTRIBUTION WIDTH 16.9 % (12.0-15.0); WHITE BLOOD COUNT 7.2 x10^3/uL (4.8-10.8)
[2019-10-29 17:04] LABS: CALCIUM 9.5 mg/dL (8.5-10.3); CREATININE 1.4 mg/dL (0.4-1.0)
== END 2019-10-29 23:59 | disposition home or self-care (01) ==
LOC: LAB.R 16:10
PROVIDERS: ATTEND Family Medicine
DX: D64.9 Anemia, unspecified (principal)
CPT/HCPCS: 80048; 82728; 85025

== ENCOUNTER 2019-12-18 16:20 | Outpatient (CLI) | payer MEDICARE, OTHER, MEDICAID ==
[2019-12-18 17:12] LABS: CALCIUM 9.9 mg/dL (8.5-10.3); CREATININE 1.5 mg/dL (0.4-1.0)
== END 2019-12-18 23:59 | disposition home or self-care (01) ==
LOC: LAB.R 16:20
PROVIDERS: ATTEND Family Medicine
DX: R60.9 Edema, unspecified (principal)
CPT/HCPCS: 80048

== ENCOUNTER 2020-02-26 16:00 | Outpatient (CLI) | payer MEDICARE, OTHER, MEDICAID ==
[2020-02-26 17:02] LABS: BILIRUBIN,URINE NEGATIVE (NEGATIVE); GLUCOSE, URINE (UA) NEGATIVE (NEGATIVE); KETONES,URINE (UA) NEGATIVE (NEGATIVE); LEUKOCYTE ESTERASE, URINE MODERATE (NEGATIVE); NITRITE,URINE NEGATIVE (NEGATIVE); OCCULT BLOOD,URINE NEGATIVE (NEGATIVE); PROTEIN,URINE NEGATIVE (NEGATIVE); UROBILINOGEN,URINE 0.2 (NORMAL) E.U./dL (NORMAL)
[2020-02-26 17:03] LABS: CLARITY,URINE CLEAR (CLEAR)
[2020-02-26 17:13] LABS: BACTERIA,URINE None Seen /HPF (None Seen); RBC,URINE None Seen /HPF (0-5); SQUAMOUS EPITHELIAL CELL,UR NONE SEEN (<= Few)
== END 2020-02-26 23:59 | disposition home or self-care (01) ==
LOC: LAB.R 16:00
PROVIDERS: ATTEND Family Medicine
DX: R39.0 Extravasation of urine (principal); R30.0 Dysuria; R60.9 Edema, unspecified; R56.9 Unspecified convulsions
CPT/HCPCS: 81001; 81003; 87077; 87086; 87181

== ENCOUNTER 2020-04-04 10:50 | Outpatient (CLI) | payer OTHER ==
[2020-04-04 11:25] LABS: BASOPHILS % (AUTO) 0.6 %; EOSINOPHILS # (AUTO) 0.2 10^3/uL (0.0-0.7); EOSINOPHILS % (AUTO) 2.6 %; HGB - HEMOGLOBIN 12.5 g/dL (12.0-16.0); LYMPHOCYTES % (AUTO) 29.4 %; MEAN CORPUSCULAR HEMOGLOBIN 28.9 pg (27.0-31.0); MEAN CORPUSCULAR HGB CONC 30.7 g/dL (32.0-36.0); MEAN PLATELET VOLUME 10.1 fL (7.9-10.8); MONOCYTES # (AUTO) 0.6 10^3/uL (0.0-1.0); MONOCYTES % (AUTO) 8.4 %; NEUTROPHILS # (AUTO) 3.9 10^3/uL (1.5-6.6); NEUTROPHILS % (AUTO) 58.4 %; PLT - PLATELET COUNT 225 10^3/uL (130-450); RED BLOOD COUNT 4.33 10^6/uL (4.20-5.40); WHITE BLOOD COUNT 6.6 x10^3/uL (4.8-10.8)
== END 2020-04-04 23:59 | disposition home or self-care (01) ==
LOC: LAB.R 10:50
DX: E56.9 Vitamin deficiency, unspecified (principal)
CPT/HCPCS: 85025

== ENCOUNTER 2020-04-09 08:00 | Outpatient (CLI) | payer OTHER ==
[2020-04-09 13:00] LABS: ALBUMIN 3.7 g/dL (3.2-5.5); ALKALINE PHOSPHATASE 69 IU/L (42-121); ALT ALANINE AMINOTRANSFERASE < 10 IU/L (10-60); AST ASPARTATE AMINOTRANSFERASE 12 IU/L (10-42); BILIRUBIN,TOTAL 0.5 mg/dL (0.2-1.0); BUN - BLOOD UREA NITROGEN 35 mg/dL (6-20); CALCIUM 9.3 mg/dL (8.5-10.3); CARBON DIOXIDE - CO2 32 mmol/L (21-32); CHLORIDE 96 mmol/L (101-111); CREATININE 1.3 mg/dL (0.4-1.0); GLUCOSE 123 mg/dL (70-100); SODIUM 140 mmol/L (135-145); TOTAL PROTEIN 7.1 g/dL (6.7-8.2)
[2020-04-09 13:01] LABS: ALBUMIN/GLOBULIN RATIO 1.1 (1.0-2.2)
== END 2020-04-09 23:59 | disposition home or self-care (01) ==
LOC: LAB.R 08:00
DX: E61.1 Iron deficiency (principal); R60.9 Edema, unspecified
CPT/HCPCS: 80053; 82728

== ENCOUNTER 2020-04-19 08:00 | Outpatient (CLI) | payer OTHER ==
[2020-04-19 18:36] LABS: BILIRUBIN,URINE NEGATIVE (NEGATIVE); GLUCOSE, URINE (UA) NEGATIVE (NEGATIVE); KETONES,URINE (UA) NEGATIVE (NEGATIVE); LEUKOCYTE ESTERASE, URINE LARGE (NEGATIVE); NITRITE,URINE NEGATIVE (NEGATIVE); OCCULT BLOOD,URINE NEGATIVE (NEGATIVE); PH,URINE 7.5 PH (5.0-7.5); PROTEIN,URINE NEGATIVE (NEGATIVE); UROBILINOGEN,URINE 0.2 (NORMAL) E.U./dL (NORMAL)
[2020-04-19 18:37] LABS: CLARITY,URINE CLEAR (CLEAR)
[2020-04-19 18:44] LABS: BACTERIA,URINE Many /HPF (None Seen); RBC,URINE 0-5 /HPF (0-5); SQUAMOUS EPITHELIAL CELL,UR FEW Squamous (<= Few); WBC CLUMPS,URINE PRESENT
== END 2020-04-19 23:59 | disposition home or self-care (01) ==
LOC: LAB.R 08:00
DX: N39.0 Urinary tract infection, site not specified (principal)
CPT/HCPCS: 81001; 81003

== ENCOUNTER 2020-04-22 13:00 | Outpatient (CLI) | payer OTHER ==
[2020-04-22 16:49] LABS: BILIRUBIN,URINE NEGATIVE (NEGATIVE); GLUCOSE, URINE (UA) NEGATIVE (NEGATIVE); KETONES,URINE (UA) NEGATIVE (NEGATIVE); LEUKOCYTE ESTERASE, URINE LARGE (NEGATIVE); NITRITE,URINE NEGATIVE (NEGATIVE); OCCULT BLOOD,URINE NEGATIVE (NEGATIVE); PH,URINE 7.5 PH (5.0-7.5); PROTEIN,URINE NEGATIVE (NEGATIVE); UROBILINOGEN,URINE 0.2 (NORMAL) E.U./dL (NORMAL)
[2020-04-22 16:50] LABS: CLARITY,URINE CLEAR (CLEAR)
[2020-04-22 16:59] LABS: BACTERIA,URINE Rare /HPF (None Seen); CASTS, URINE 0-2 Hyaline Casts /LPF; RBC,URINE None Seen /HPF (0-5); SQUAMOUS EPITHELIAL CELL,UR MOD Squamous (<= Few)
== END 2020-04-22 23:59 | disposition home or self-care (01) ==
LOC: LAB.R 13:00
DX: N39.0 Urinary tract infection, site not specified (principal); R30.0 Dysuria
CPT/HCPCS: 81001; 81003; 87086

== ENCOUNTER 2020-04-23 16:25 | Outpatient (CLI) | payer OTHER ==
[2020-04-23 17:43] LABS: BILIRUBIN,URINE NEGATIVE (NEGATIVE); GLUCOSE, URINE (UA) NEGATIVE (NEGATIVE); KETONES,URINE (UA) NEGATIVE (NEGATIVE); LEUKOCYTE ESTERASE, URINE SMALL (NEGATIVE); NITRITE,URINE NEGATIVE (NEGATIVE); OCCULT BLOOD,URINE NEGATIVE (NEGATIVE); PH,URINE 7.5 PH (5.0-7.5); PROTEIN,URINE NEGATIVE (NEGATIVE); UROBILINOGEN,URINE 0.2 (NORMAL) E.U./dL (NORMAL)
[2020-04-23 17:44] LABS: CLARITY,URINE CLEAR (CLEAR)
[2020-04-23 17:55] LABS: BACTERIA,URINE None Seen /HPF (None Seen); RBC,URINE None Seen /HPF (0-5); SQUAMOUS EPITHELIAL CELL,UR FEW Squamous (<= Few)
== END 2020-04-23 23:59 | disposition home or self-care (01) ==
LOC: LAB.R 16:25
DX: N39.0 Urinary tract infection, site not specified (principal); R30.0 Dysuria
CPT/HCPCS: 81001; 81003; 87077; 87086; 87181

== ENCOUNTER 2020-05-03 14:15 | Outpatient (CLI) | payer OTHER ==
[2020-05-03 16:15] LABS: CALCIUM 9.4 mg/dL (8.5-10.3); CREATININE 1.1 mg/dL (0.4-1.0)
== END 2020-05-03 23:59 | disposition home or self-care (01) ==
LOC: LAB.R 14:15
DX: N39.0 Urinary tract infection, site not specified (principal); N11.9 Chronic tubulo-interstitial nephritis, unspecified
CPT/HCPCS: 80048

== ENCOUNTER 2020-07-22 14:20 | Outpatient (CLI) | payer MEDICARE, OTHER, MEDICAID ==
[2020-07-22 14:44] LABS: BASOPHILS % (AUTO) 0.6 %; EOSINOPHILS # (AUTO) 0.1 10^3/uL (0.0-0.7); EOSINOPHILS % (AUTO) 1.3 %; HGB - HEMOGLOBIN 12.4 g/dL (12.0-16.0); LYMPHOCYTES # (AUTO) 2.3 10^3/uL (1.5-3.5); MEAN CORPUSCULAR HEMOGLOBIN 29.8 pg (27.0-31.0); MEAN CORPUSCULAR HGB CONC 32.5 g/dL (32.0-36.0); MEAN CORPUSCULAR VOLUME 91.8 fL (81.0-99.0); MEAN PLATELET VOLUME 9.5 fL (7.9-10.8); MONOCYTES # (AUTO) 0.6 10^3/uL (0.0-1.0); NEUTROPHILS # (AUTO) 3.7 10^3/uL (1.5-6.6); NEUTROPHILS % (AUTO) 54.8 %; PLT - PLATELET COUNT 251 10^3/uL (130-450); RED BLOOD COUNT 4.16 10^6/uL (4.20-5.40); RED CELL DISTRIBUTION WIDTH 14.2 % (12.0-15.0); WHITE BLOOD COUNT 6.8 x10^3/uL (4.8-10.8)
[2020-07-22 15:28] LABS: CALCIUM 9.2 mg/dL (8.5-10.3); CREATININE 1.1 mg/dL (0.4-1.0)
[2020-07-22 15:48] LABS: THYROID STIMULATING HORMONE 0.48 uIU/mL (0.34-5.60)
[2020-07-22 15:53] LABS: FERRITIN 61.7 ng/mL (11.0-306.8)
== END 2020-07-22 23:59 | disposition home or self-care (01) ==
LOC: LAB.R 14:20
DX: R53.1 Weakness (principal); E56.9 Vitamin deficiency, unspecified; E61.1 Iron deficiency; R60.9 Edema, unspecified
CPT/HCPCS: 80048; 82728; 84443; 85025

== ENCOUNTER 2020-09-08 16:30 | Outpatient (CLI) | payer MEDICARE, OTHER, MEDICAID ==
[2020-09-08 08:47] LABS: BILIRUBIN,URINE NEGATIVE (NEGATIVE); GLUCOSE, URINE (UA) NEGATIVE (NEGATIVE); KETONES,URINE (UA) NEGATIVE (NEGATIVE); LEUKOCYTE ESTERASE, URINE NEGATIVE (NEGATIVE); NITRITE,URINE NEGATIVE (NEGATIVE); OCCULT BLOOD,URINE NEGATIVE (NEGATIVE); PROTEIN,URINE NEGATIVE (NEGATIVE); UROBILINOGEN,URINE 0.2 (NORMAL) E.U./dL (NORMAL)
[2020-09-08 08:49] LABS: CLARITY,URINE CLEAR (CLEAR)
[2020-09-08 09:17] LABS: BACTERIA,URINE Few /HPF (None Seen); RBC,URINE 0-5 /HPF (0-5); SQUAMOUS EPITHELIAL CELL,UR FEW Squamous (<= Few); WBC,URINE 0-3 /HPF (0-5)
== END 2020-09-08 23:59 | disposition home or self-care (01) ==
LOC: LAB.R 16:30
DX: R30.0 Dysuria (principal)
CPT/HCPCS: 81001; 87086

== ENCOUNTER 2020-10-21 08:00 | Outpatient (CLI) | payer MEDICARE, OTHER, MEDICAID ==
[2020-10-21 12:43] LABS: BASOPHILS % (AUTO) 0.7 %; EOSINOPHILS # (AUTO) 0.1 10^3/uL (0.0-0.7); EOSINOPHILS % (AUTO) 1.7 %; HGB - HEMOGLOBIN 12.3 g/dL (12.0-16.0); LYMPHOCYTES # (AUTO) 2.1 10^3/uL (1.5-3.5); LYMPHOCYTES % (AUTO) 34.9 %; MEAN CORPUSCULAR HEMOGLOBIN 29.4 pg (27.0-31.0); MEAN CORPUSCULAR HGB CONC 31.5 g/dL (32.0-36.0); MEAN CORPUSCULAR VOLUME 93.3 fL (81.0-99.0); MEAN PLATELET VOLUME 9.9 fL (7.9-10.8); MONOCYTES # (AUTO) 0.5 10^3/uL (0.0-1.0); MONOCYTES % (AUTO) 8.2 %; NEUTROPHILS # (AUTO) 3.2 10^3/uL (1.5-6.6); NEUTROPHILS % (AUTO) 54.2 %; PLT - PLATELET COUNT 221 10^3/uL (130-450); RED BLOOD COUNT 4.18 10^6/uL (4.20-5.40); RED CELL DISTRIBUTION WIDTH 13.7 % (12.0-15.0); WHITE BLOOD COUNT 5.9 x10^3/uL (4.8-10.8)
[2020-10-21 12:51] LABS: ALBUMIN 3.7 g/dL (3.2-5.5); ALBUMIN/GLOBULIN RATIO 1.1 (1.0-2.2); ALKALINE PHOSPHATASE 53 IU/L (42-121); ALT ALANINE AMINOTRANSFERASE < 10 IU/L (10-60); AST ASPARTATE AMINOTRANSFERASE 14 IU/L (10-42); BILIRUBIN,TOTAL 0.7 mg/dL (0.2-1.0); BUN - BLOOD UREA NITROGEN 24 mg/dL (6-20); CALCIUM 10.1 mg/dL (8.5-10.3); CARBON DIOXIDE - CO2 34 mmol/L (21-32); CHLORIDE 103 mmol/L (101-111); CREATININE 1.1 mg/dL (0.4-1.0); GFR - MDRD 47 (>89); GLUCOSE 105 mg/dL (70-100); POTASSIUM 4.2 mmol/L (3.5-5.0); SODIUM 146 mmol/L (135-145)
== END 2020-10-21 23:59 | disposition home or self-care (01) ==
LOC: LAB.R 08:00
DX: E56.9 Vitamin deficiency, unspecified (principal); R60.9 Edema, unspecified; R53.1 Weakness; E61.1 Iron deficiency
CPT/HCPCS: 80053; 85025

== ENCOUNTER 2021-01-20 08:00 | Outpatient (CLI) | payer MEDICARE, OTHER, MEDICAID ==
[2021-01-20 19:57] LABS: BASOPHILS % (AUTO) 0.5 %; EOSINOPHILS # (AUTO) 0.1 10^3/uL (0.0-0.7); EOSINOPHILS % (AUTO) 1.6 %; HCT - HEMATOCRIT 40.1 % (37.0-47.0); HGB - HEMOGLOBIN 12.3 g/dL (12.0-16.0); LYMPHOCYTES # (AUTO) 2.4 10^3/uL (1.5-3.5); LYMPHOCYTES % (AUTO) 31.2 %; MEAN CORPUSCULAR HEMOGLOBIN 28.9 pg (27.0-31.0); MEAN CORPUSCULAR HGB CONC 30.7 g/dL (32.0-36.0); MEAN CORPUSCULAR VOLUME 94.1 fL (81.0-99.0); MEAN PLATELET VOLUME 9.8 fL (7.9-10.8); MONOCYTES # (AUTO) 0.8 10^3/uL (0.0-1.0); NEUTROPHILS # (AUTO) 4.3 10^3/uL (1.5-6.6); NEUTROPHILS % (AUTO) 56.2 %; PLT - PLATELET COUNT 253 10^3/uL (130-450); RED BLOOD COUNT 4.26 10^6/uL (4.20-5.40); RED CELL DISTRIBUTION WIDTH 14.2 % (12.0-15.0); WHITE BLOOD COUNT 7.6 x10^3/uL (4.8-10.8)
[2021-01-20 20:08] LABS: BILIRUBIN,URINE NEGATIVE (NEGATIVE); GLUCOSE, URINE (UA) NEGATIVE (NEGATIVE); KETONES,URINE (UA) NEGATIVE (NEGATIVE); LEUKOCYTE ESTERASE, URINE TRACE (NEGATIVE); NITRITE,URINE NEGATIVE (NEGATIVE); OCCULT BLOOD,URINE NEGATIVE (NEGATIVE); PH,URINE 6.5 PH (5.0-7.5); PROTEIN,URINE NEGATIVE (NEGATIVE); UROBILINOGEN,URINE 0.2 (NORMAL) E.U./dL (NORMAL)
[2021-01-20 20:10] LABS: CLARITY,URINE CLEAR (CLEAR)
[2021-01-20 20:44] LABS: BACTERIA,URINE Rare /HPF (None Seen); RBC,URINE 0-5 /HPF (0-5); SQUAMOUS EPITHELIAL CELL,UR FEW Squamous (<= Few)
[2021-01-20 21:09] LABS: CALCIUM 9.2 mg/dL (8.5-10.3); CREATININE 1.1 mg/dL (0.4-1.0); POTASSIUM 4.5 mmol/L (3.5-5.0)
== END 2021-01-20 23:59 | disposition home or self-care (01) ==
LOC: LAB.R 08:00
PROVIDERS: ATTEND Family Medicine
DX: E61.1 Iron deficiency (principal); R54 Age-related physical debility; R30.0 Dysuria
CPT/HCPCS: 80048; 81001; 81003; 82728; 85025; 87086

== ENCOUNTER 2021-01-29 08:00 | Outpatient (CLI) | payer MEDICARE, OTHER, MEDICAID ==
[2021-01-29 07:37] LABS: BILIRUBIN,URINE NEGATIVE (NEGATIVE); GLUCOSE, URINE (UA) NEGATIVE (NEGATIVE); KETONES,URINE (UA) NEGATIVE (NEGATIVE); LEUKOCYTE ESTERASE, URINE SMALL (NEGATIVE); NITRITE,URINE NEGATIVE (NEGATIVE); OCCULT BLOOD,URINE NEGATIVE (NEGATIVE); PH,URINE 5.5 PH (5.0-7.5); PROTEIN,URINE NEGATIVE (NEGATIVE); UROBILINOGEN,URINE 0.2 (NORMAL) E.U./dL (NORMAL)
[2021-01-29 07:45] LABS: CLARITY,URINE HAZY (CLEAR)
[2021-01-29 07:46] LABS: BACTERIA,URINE Few /HPF (None Seen); CRYSTALS,URINE 3-5 Calcium Oxalate /LPF; RBC,URINE 0-5 /HPF (0-5); SQUAMOUS EPITHELIAL CELL,UR FEW Squamous (<= Few)
== END 2021-01-29 23:59 | disposition home or self-care (01) ==
LOC: LAB.R 08:00
PROVIDERS: ATTEND Family Medicine
DX: N39.0 Urinary tract infection, site not specified (principal)
CPT/HCPCS: 81001; 87086

== ENCOUNTER 2021-03-10 12:31 | Outpatient (CLI) | payer MEDICARE, OTHER, MEDICAID ==
[2021-03-10 12:40] LABS: BASOPHILS % (AUTO) 0.3 %; EOSINOPHILS # (AUTO) 0.1 10^3/uL (0.0-0.7); EOSINOPHILS % (AUTO) 1.9 %; HCT - HEMATOCRIT 36.2 % (37.0-47.0); HGB - HEMOGLOBIN 11.1 g/dL (12.0-16.0); LYMPHOCYTES # (AUTO) 1.7 10^3/uL (1.5-3.5); LYMPHOCYTES % (AUTO) 26.9 %; MEAN CORPUSCULAR HEMOGLOBIN 28.8 pg (27.0-31.0); MEAN CORPUSCULAR HGB CONC 30.7 g/dL (32.0-36.0); MEAN PLATELET VOLUME 9.6 fL (7.9-10.8); MONOCYTES # (AUTO) 0.6 10^3/uL (0.0-1.0); MONOCYTES % (AUTO) 9.1 %; NEUTROPHILS # (AUTO) 3.8 10^3/uL (1.5-6.6); NEUTROPHILS % (AUTO) 61.5 %; PLT - PLATELET COUNT 217 10^3/uL (130-450); RED BLOOD COUNT 3.85 10^6/uL (4.20-5.40); WHITE BLOOD COUNT 6.2 x10^3/uL (4.8-10.8)
[2021-03-10 12:54] LABS: ALBUMIN 3.6 g/dL (3.2-5.5); ALBUMIN/GLOBULIN RATIO 1.2 (1.0-2.2); ALKALINE PHOSPHATASE 44 IU/L (42-121); ALT ALANINE AMINOTRANSFERASE < 10 IU/L (10-60); AST ASPARTATE AMINOTRANSFERASE 13 IU/L (10-42); BILIRUBIN,TOTAL 0.8 mg/dL (0.2-1.0); BUN - BLOOD UREA NITROGEN 27 mg/dL (6-20); CALCIUM 9.3 mg/dL (8.5-10.3); CARBON DIOXIDE - CO2 34 mmol/L (21-32); CHLORIDE 101 mmol/L (101-111); GFR - MDRD 52 (>89); GLUCOSE 95 mg/dL (70-100); POTASSIUM 3.4 mmol/L (3.5-5.0); SODIUM 144 mmol/L (135-145); TOTAL PROTEIN 6.5 g/dL (6.7-8.2)
== END 2021-03-10 12:32 | disposition home or self-care (01) ==
LOC: LAB.R 12:31
PROVIDERS: ATTEND Family Medicine
DX: R60.9 Edema, unspecified (principal); R53.1 Weakness; E56.9 Vitamin deficiency, unspecified; E66.9 Obesity, unspecified; E61.1 Iron deficiency
CPT/HCPCS: 80053; 85025

== ENCOUNTER 2021-03-15 08:00 | Outpatient (CLI) | payer MEDICARE, OTHER, MEDICAID ==
[2021-03-15 15:21] LABS: CALCIUM 9.8 mg/dL (8.5-10.3); POTASSIUM 3.7 mmol/L (3.5-5.0)
== END 2021-03-15 23:59 | disposition home or self-care (01) ==
LOC: LAB.R 08:00
PROVIDERS: ATTEND Family Medicine
DX: E87.6 Hypokalemia (principal)
CPT/HCPCS: 80048

== ENCOUNTER 2021-04-12 11:28 | Outpatient (CLI) | payer MEDICARE, OTHER, MEDICAID ==
[2021-04-12 11:37] LABS: BASOPHILS % (AUTO) 0.4 %; EOSINOPHILS # (AUTO) 0.1 10^3/uL (0.0-0.7); EOSINOPHILS % (AUTO) 1.7 %; HCT - HEMATOCRIT 36.9 % (37.0-47.0); HGB - HEMOGLOBIN 11.6 g/dL (12.0-16.0); LYMPHOCYTES # (AUTO) 1.9 10^3/uL (1.5-3.5); LYMPHOCYTES % (AUTO) 26.1 %; MEAN CORPUSCULAR HEMOGLOBIN 29.4 pg (27.0-31.0); MEAN CORPUSCULAR HGB CONC 31.4 g/dL (32.0-36.0); MEAN CORPUSCULAR VOLUME 93.4 fL (81.0-99.0); MEAN PLATELET VOLUME 9.8 fL (7.9-10.8); MONOCYTES # (AUTO) 0.6 10^3/uL (0.0-1.0); MONOCYTES % (AUTO) 7.8 %; NEUTROPHILS # (AUTO) 4.5 10^3/uL (1.5-6.6); NEUTROPHILS % (AUTO) 63.6 %; PLT - PLATELET COUNT 230 10^3/uL (130-450); RED BLOOD COUNT 3.95 10^6/uL (4.20-5.40); RED CELL DISTRIBUTION WIDTH 13.9 % (12.0-15.0); WHITE BLOOD COUNT 7.1 x10^3/uL (4.8-10.8)
[2021-04-12 12:14] LABS: ALBUMIN 3.7 g/dL (3.2-5.5); ALBUMIN/GLOBULIN RATIO 1.2 (1.0-2.2); ALKALINE PHOSPHATASE 53 IU/L (42-121); ALT ALANINE AMINOTRANSFERASE < 10 IU/L (10-60); AST ASPARTATE AMINOTRANSFERASE 14 IU/L (10-42); BILIRUBIN,TOTAL 0.3 mg/dL (0.2-1.0); BUN - BLOOD UREA NITROGEN 31 mg/dL (6-20); CALCIUM 9.7 mg/dL (8.5-10.3); CARBON DIOXIDE - CO2 31 mmol/L (21-32); CHLORIDE 100 mmol/L (101-111); CREATININE 1.1 mg/dL (0.4-1.0); GFR - MDRD 47 (>89); GLUCOSE 144 mg/dL (70-100); POTASSIUM 4.2 mmol/L (3.5-5.0); SODIUM 140 mmol/L (135-145); TOTAL PROTEIN 6.7 g/dL (6.7-8.2)
== END 2021-04-12 11:29 | disposition home or self-care (01) ==
LOC: LAB.R 11:28
PROVIDERS: ATTEND Family Medicine
DX: E66.9 Obesity, unspecified (principal); E61.1 Iron deficiency
CPT/HCPCS: 80053; 85025

== ENCOUNTER 2021-06-01 15:23 | Outpatient (CLI) | payer MEDICARE, OTHER, MEDICAID ==
[2021-06-01 15:32] LABS: BASOPHILS % (AUTO) 0.5 %; EOSINOPHILS # (AUTO) 0.1 10^3/uL (0.0-0.7); EOSINOPHILS % (AUTO) 1.2 %; HCT - HEMATOCRIT 37.8 % (37.0-47.0); HGB - HEMOGLOBIN 11.9 g/dL (12.0-16.0); LYMPHOCYTES # (AUTO) 2.1 10^3/uL (1.5-3.5); MEAN CORPUSCULAR HEMOGLOBIN 29.2 pg (27.0-31.0); MEAN CORPUSCULAR HGB CONC 31.5 g/dL (32.0-36.0); MEAN CORPUSCULAR VOLUME 92.6 fL (81.0-99.0); MEAN PLATELET VOLUME 9.7 fL (7.9-10.8); MONOCYTES # (AUTO) 0.6 10^3/uL (0.0-1.0); MONOCYTES % (AUTO) 8.5 %; NEUTROPHILS # (AUTO) 4.4 10^3/uL (1.5-6.6); NEUTROPHILS % (AUTO) 60.5 %; PLT - PLATELET COUNT 230 10^3/uL (130-450); RED BLOOD COUNT 4.08 10^6/uL (4.20-5.40); WHITE BLOOD COUNT 7.3 x10^3/uL (4.8-10.8)
[2021-06-01 15:43] LABS: ALBUMIN 3.6 g/dL (3.2-5.5); ALBUMIN/GLOBULIN RATIO 1.1 (1.0-2.2); ALKALINE PHOSPHATASE 45 IU/L (42-121); ALT ALANINE AMINOTRANSFERASE < 10 IU/L (10-60); AST ASPARTATE AMINOTRANSFERASE 11 IU/L (10-42); BILIRUBIN,TOTAL 0.4 mg/dL (0.2-1.0); BUN - BLOOD UREA NITROGEN 26 mg/dL (6-20); CALCIUM 9.1 mg/dL (8.5-10.3); CARBON DIOXIDE - CO2 30 mmol/L (21-32); CHLORIDE 98 mmol/L (101-111); GFR - MDRD 52 (>89); GLUCOSE 112 mg/dL (70-100); POTASSIUM 3.4 mmol/L (3.5-5.0); SODIUM 136 mmol/L (135-145); TOTAL PROTEIN 6.8 g/dL (6.7-8.2)
[2021-06-01 16:28] LABS: BILIRUBIN,URINE NEGATIVE (NEGATIVE); GLUCOSE, URINE (UA) NEGATIVE (NEGATIVE); KETONES,URINE (UA) NEGATIVE (NEGATIVE); LEUKOCYTE ESTERASE, URINE NEGATIVE (NEGATIVE); NITRITE,URINE NEGATIVE (NEGATIVE); OCCULT BLOOD,URINE NEGATIVE (NEGATIVE); PROTEIN,URINE NEGATIVE (NEGATIVE); UROBILINOGEN,URINE 0.2 (NORMAL) E.U./dL (NORMAL)
[2021-06-01 16:34] LABS: CLARITY,URINE CLEAR (CLEAR)
[2021-06-01 17:05] LABS: BACTERIA,URINE Rare /HPF (None Seen); RBC,URINE None Seen /HPF (0-5); SQUAMOUS EPITHELIAL CELL,UR FEW Squamous (<= Few); WBC,URINE 0-3 /HPF (0-5)
== END 2021-06-01 15:24 | disposition home or self-care (01) ==
LOC: LAB.R 15:23
PROVIDERS: ATTEND Hospitalist
DX: E61.1 Iron deficiency (principal); R53.1 Weakness; I89.0 Lymphedema, not elsewhere classified; R60.9 Edema, unspecified; R30.0 Dysuria
CPT/HCPCS: 80053; 81001; 85025; 87086

== ENCOUNTER 2022-03-08 18:56 | Outpatient (CLI) | payer MEDICARE, OTHER, MEDICAID ==
[2022-03-08 19:01] LABS: BASOPHILS % (AUTO) 0.6 %; EOSINOPHILS # (AUTO) 0.1 10^3/uL (0.0-0.7); EOSINOPHILS % (AUTO) 1.2 %; HCT - HEMATOCRIT 35.8 % (37.0-47.0); HGB - HEMOGLOBIN 11.6 g/dL (12.0-16.0); LYMPHOCYTES # (AUTO) 1.9 10^3/uL (1.5-3.5); LYMPHOCYTES % (AUTO) 28.5 %; MEAN CORPUSCULAR HEMOGLOBIN 29.7 pg (27.0-31.0); MEAN CORPUSCULAR HGB CONC 32.4 g/dL (32.0-36.0); MEAN CORPUSCULAR VOLUME 91.6 fL (81.0-99.0); MEAN PLATELET VOLUME 9.9 fL (7.9-10.8); MONOCYTES # (AUTO) 0.7 10^3/uL (0.0-1.0); NEUTROPHILS # (AUTO) 3.8 10^3/uL (1.5-6.6); NEUTROPHILS % (AUTO) 58.2 %; PLT - PLATELET COUNT 268 10^3/uL (130-450); RED BLOOD COUNT 3.91 10^6/uL (4.20-5.40); RED CELL DISTRIBUTION WIDTH 13.4 % (12.0-15.0); WHITE BLOOD COUNT 6.5 x10^3/uL (4.8-10.8)
[2022-03-08 19:17] LABS: ALBUMIN 3.3 g/dL (3.2-5.5); ALKALINE PHOSPHATASE 55 IU/L (42-121); ALT ALANINE AMINOTRANSFERASE < 10 IU/L (10-60); AST ASPARTATE AMINOTRANSFERASE 13 IU/L (10-42); BILIRUBIN,TOTAL 0.4 mg/dL (0.2-1.0); BUN - BLOOD UREA NITROGEN 24 mg/dL (6-20); CALCIUM 9.3 mg/dL (8.5-10.3); CARBON DIOXIDE - CO2 28 mmol/L (21-32); CHLORIDE 101 mmol/L (101-111); CREATININE 0.9 mg/dL (0.4-1.0); GFR - MDRD 59 (>89); GLUCOSE 161 mg/dL (70-100); POTASSIUM 4.1 mmol/L (3.5-5.0); SODIUM 139 mmol/L (135-145); TOTAL PROTEIN 6.6 g/dL (6.7-8.2)
== END 2022-03-08 18:57 | disposition home or self-care (01) ==
LOC: LAB.R 18:56
PROVIDERS: ATTEND Hospitalist
DX: I11.9 Hypertensive heart disease without heart failure (principal); R53.1 Weakness
CPT/HCPCS: 80053; 85025

== ENCOUNTER 2022-09-21 08:00 | Outpatient (CLI) | payer MEDICARE, OTHER, MEDICAID ==
[2022-09-21 06:23] LABS: BASOPHILS % (AUTO) 0.4 %; EOSINOPHILS # (AUTO) 0.1 10^3/uL (0.0-0.7); EOSINOPHILS % (AUTO) 1.4 %; HCT - HEMATOCRIT 38.1 % (37.0-47.0); LYMPHOCYTES # (AUTO) 2.9 10^3/uL (1.5-3.5); LYMPHOCYTES % (AUTO) 41.6 %; MEAN CORPUSCULAR HEMOGLOBIN 28.8 pg (27.0-31.0); MEAN CORPUSCULAR HGB CONC 31.5 g/dL (32.0-36.0); MEAN CORPUSCULAR VOLUME 91.6 fL (81.0-99.0); MEAN PLATELET VOLUME 9.6 fL (7.9-10.8); MONOCYTES # (AUTO) 0.6 10^3/uL (0.0-1.0); MONOCYTES % (AUTO) 8.1 %; NEUTROPHILS # (AUTO) 3.3 10^3/uL (1.5-6.6); NEUTROPHILS % (AUTO) 48.2 %; PLT - PLATELET COUNT 261 10^3/uL (130-450); RED BLOOD COUNT 4.16 10^6/uL (4.20-5.40); RED CELL DISTRIBUTION WIDTH 13.7 % (12.0-15.0); WHITE BLOOD COUNT 6.9 x10^3/uL (4.8-10.8)
[2022-09-21 06:37] LABS: ALBUMIN 3.1 g/dL (3.2-5.5); ALBUMIN/GLOBULIN RATIO 1.1 (1.0-2.2); ALKALINE PHOSPHATASE 49 IU/L (42-121); ALT ALANINE AMINOTRANSFERASE < 10 IU/L (10-60); AST ASPARTATE AMINOTRANSFERASE 15 IU/L (10-42); BILIRUBIN,TOTAL 0.4 mg/dL (0.2-1.0); BUN - BLOOD UREA NITROGEN 21 mg/dL (6-20); CALCIUM 9.1 mg/dL (8.5-10.3); CARBON DIOXIDE - CO2 30 mmol/L (21-32); CHLORIDE 103 mmol/L (101-111); CREATININE 0.9 mg/dL (0.4-1.0); GFR - MDRD 59 (>89); GLUCOSE 115 mg/dL (70-100); POTASSIUM 3.7 mmol/L (3.5-5.0); SODIUM 141 mmol/L (135-145)
== END 2022-09-21 23:59 | disposition home or self-care (01) ==
LOC: LAB.R 08:00
DX: D50.9 Iron deficiency anemia, unspecified (principal); E87.8 Other disorders of electrolyte and fluid balance, not elsewhere classified
CPT/HCPCS: 80053; 85025

== ENCOUNTER 2022-09-21 12:54 | Outpatient (CLI) | payer MEDICARE, OTHER, MEDICAID ==
--- NOTE | 2022-09-22 13:27 | XRAY Report ---
PROCEDURE: Chest 2 View X-Ray INDICATIONS: OTHER ABNORMALITIES OF BREATHING TECHNIQUE: 2 views of the chest were acquired. COMPARISON: None. FINDINGS: Suboptimal due to head positioning. Surgical changes and devices: None. Lungs and pleura: Left basilar, peripheral airspace opacities. Mediastinum: Mediastinal contours appear normal. Heart size is normal. Bones and chest wall: No suspicious bony lesions. Overlying soft tissues appear unremarkable. IMPRESSION: Left basilar, peripheral airspace opacities may indicate resolving infection or focal fibrosis. Consi wendi CT. Reviewed by: Alexander Philip on 09/22/2022 1:25 PM PDT Approved by: Alexander Philip on 09/22/2022 1:25 PM PDT Station ID: [id number]
== END 2022-09-21 12:55 | disposition home or self-care (01) ==
LOC: DI 12:54
DX: R06.02 Shortness of breath (principal); R06.89 Other abnormalities of breathing; D50.9 Iron deficiency anemia, unspecified; E87.8 Other disorders of electrolyte and fluid balance, not elsewhere classified
CPT/HCPCS: 80053; 85025

== ENCOUNTER 2022-09-26 09:08 | Outpatient (CLI) | payer MEDICARE, OTHER, MEDICAID | END 2022-09-26 09:09 | disposition home or self-care (01) | LOC: LAB.R 09:08 | PROVIDERS: ATTEND Family Medicine | DX: H10.33 Unspecified acute conjunctivitis, bilateral (principal) ==

== ENCOUNTER 2022-10-02 09:05 | Outpatient (CLI) | payer MEDICARE, OTHER, MEDICAID ==
[2022-10-02] MEDS ORDERED: iohexoL-300 100 ML VIAL ONE (09:15)
[2022-10-02] MEDS ORDERED: iohexoL-300 100 ML VIAL IVP ONE (10:08)
--- NOTE | 2022-10-02 10:50 | CT Report ---
PROCEDURE: CHEST W INDICATIONS: LESION OF LUNG CONTRAST: 100ml Omnipaque 300 TECHNIQUE: After the administration of intravenous contrast, 1 mm axial images were acquired from the pulmonary apices through the posterior costophrenic angles. Axial 5 mm soft tissue kernel reconstructions were performed as well as 8 mm axial MIP and coronal and sagittal 5 mm reformations. For radiation dose reduction, the following was used: automated exposure control, adjustment of mA and/or kV according to patient size. COMPARISON: X-ray 09/21/2022, CT 04/10/2017 FINDINGS: Image quality: Excellent. Lungs and pleura: No pleural effusions. No pneumothorax. There are are scattered regions of randomly distributed groundglass and mild interstitial thickening within the lungs. No mass within the left p eriphery to correspond with findings seen on x-ray. Centrilobular nodules in the lower lobes, largest measuring 1 cm (/180). Mediastinum: Heart size is normal. No pericardial effusions. No mediastinal adenopathy by size criter ia. No large vessel abnormality. Chest wall and lower neck: Thyroid is unremarkable. No axillary or supraclavicular adenopathy by size . Bones: No aggressive osseous abnormality. Upper Abdomen: Stable 2.1 cm left adrenal nodule compared with 2017, statistically benign. IMPRESSION: Suspect ongoing infectious/inflammatory process, given randomly distributed groundglass and smooth in terstitial thickening, as well as centrilobular nodules in the right lower lobe. Malignancy is less l ikely, but given size of nodules, follow-up in 3 months is recommended. Reviewed by: Alexander Philip on 10/02/2022 10:49 AM PDT Approved by: Alexander Philip on 10/02/2022 10:49 AM PDT Station ID: [id number]
== END 2022-10-02 09:06 | disposition home or self-care (01) ==
LOC: DI 09:05
PROVIDERS: ATTEND Family Medicine
DX: R91.8 Other nonspecific abnormal finding of lung field (principal)
CPT/HCPCS: 71260; Q9967

== ENCOUNTER 2023-07-06 09:10 | Outpatient (CLI) | payer MEDICARE, OTHER, MEDICAID ==
[2023-07-06 09:34] LABS: BASOPHILS % (AUTO) 0.4 %; EOSINOPHILS # (AUTO) 0.1 10^3/uL (0.0-0.7); EOSINOPHILS % (AUTO) 1.6 %; HCT - HEMATOCRIT 39.7 % (37.0-47.0); HGB - HEMOGLOBIN 12.8 g/dL (12.0-16.0); LYMPHOCYTES # (AUTO) 2.1 10^3/uL (1.5-3.5); LYMPHOCYTES % (AUTO) 31.3 %; MEAN CORPUSCULAR HEMOGLOBIN 29.3 pg (27.0-31.0); MEAN CORPUSCULAR HGB CONC 32.2 g/dL (32.0-36.0); MEAN CORPUSCULAR VOLUME 90.8 fL (81.0-99.0); MEAN PLATELET VOLUME 9.5 fL (7.9-10.8); MONOCYTES # (AUTO) 0.6 10^3/uL (0.0-1.0); MONOCYTES % (AUTO) 8.1 %; NEUTROPHILS % (AUTO) 58.3 %; PLT - PLATELET COUNT 251 10^3/uL (130-450); RED BLOOD COUNT 4.37 10^6/uL (4.20-5.40); RED CELL DISTRIBUTION WIDTH 13.5 % (12.0-15.0); WHITE BLOOD COUNT 6.8 x10^3/uL (4.8-10.8)
[2023-07-06 09:55] LABS: ALBUMIN 3.5 g/dL (3.2-5.5); ALBUMIN/GLOBULIN RATIO 1.2 (1.0-2.2); BILIRUBIN,TOTAL 0.4 mg/dL (0.2-1.0); CALCIUM 9.4 mg/dL (8.5-10.3); CREATININE 0.7 mg/dL (0.6-1.3); POTASSIUM 3.7 mmol/L (3.5-4.5); TOTAL PROTEIN 6.4 g/dL (6.4-8.9)
[2023-07-06 10:06] LABS: THYROID STIMULATING HORMONE 0.74 uIU/mL (0.34-5.60)
== END 2023-07-06 09:11 | disposition home or self-care (01) ==
LOC: LAB.R 09:10
PROVIDERS: ATTEND Registered Nurse
DX: D50.9 Iron deficiency anemia, unspecified (principal); R94.6 Abnormal results of thyroid function studies; E56.9 Vitamin deficiency, unspecified
CPT/HCPCS: 80053; 82306; 84439; 84443; 85025

== ENCOUNTER 2023-07-24 08:00 | Outpatient (CLI) | payer MEDICARE, OTHER, MEDICAID ==
[2023-07-24 19:08] LABS: BASOPHILS % (AUTO) 0.6 %; EOSINOPHILS # (AUTO) 0.1 10^3/uL (0.0-0.7); EOSINOPHILS % (AUTO) 1.8 %; HCT - HEMATOCRIT 41.7 % (37.0-47.0); HGB - HEMOGLOBIN 13.3 g/dL (12.0-16.0); LYMPHOCYTES # (AUTO) 2.4 10^3/uL (1.5-3.5); LYMPHOCYTES % (AUTO) 36.1 %; MEAN CORPUSCULAR HEMOGLOBIN 29.2 pg (27.0-31.0); MEAN CORPUSCULAR HGB CONC 31.9 g/dL (32.0-36.0); MEAN CORPUSCULAR VOLUME 91.6 fL (81.0-99.0); MEAN PLATELET VOLUME 10.2 fL (7.9-10.8); MONOCYTES # (AUTO) 0.6 10^3/uL (0.0-1.0); MONOCYTES % (AUTO) 9.1 %; NEUTROPHILS # (AUTO) 3.4 10^3/uL (1.5-6.6); NEUTROPHILS % (AUTO) 51.9 %; PLT - PLATELET COUNT 261 10^3/uL (130-450); RED BLOOD COUNT 4.55 10^6/uL (4.20-5.40); RED CELL DISTRIBUTION WIDTH 13.5 % (12.0-15.0); WHITE BLOOD COUNT 6.6 x10^3/uL (4.8-10.8)
[2023-07-24 19:33] LABS: % IRON SATURATION 12 % (20-50); IRON 33 ug/dL (50-212); TOTAL IRON BINDING CAPACITY 274 ug/dL (250-450); TRANSFERRIN 196 mg/dL (203-362)
[2023-07-24 19:58] LABS: ALBUMIN 3.7 g/dL (3.2-5.5); ALBUMIN/GLOBULIN RATIO 1.5 (1.0-2.2); ALKALINE PHOSPHATASE 57 IU/L (42-121); ALT ALANINE AMINOTRANSFERASE < 3 IU/L (10-60); AST ASPARTATE AMINOTRANSFERASE 12 IU/L (10-42); BILIRUBIN,TOTAL 0.3 mg/dL (0.2-1.0); BUN - BLOOD UREA NITROGEN 29 mg/dL (6-20); CALCIUM 9.5 mg/dL (8.5-10.3); CARBON DIOXIDE - CO2 32 mmol/L (21-32); CHLORIDE 100 mmol/L (101-111); CREATININE 0.8 mg/dL (0.6-1.3); GFR - MDRD 68 (>89); GLUCOSE 120 mg/dL (74-104); POTASSIUM 4.1 mmol/L (3.5-4.5); SODIUM 139 mmol/L (135-145); TOTAL PROTEIN 6.2 g/dL (6.4-8.9)
== END 2023-07-24 23:59 | disposition home or self-care (01) ==
LOC: LAB.R 08:00
DX: I48.0 Paroxysmal atrial fibrillation (principal); G20.B1 Parkinson's disease with dyskinesia, without mention of fluctuations; E61.1 Iron deficiency
CPT/HCPCS: 80053; 83540; 83735; 84466; 85025

== ENCOUNTER 2023-07-30 14:55 | Outpatient (CLI) | payer MEDICARE, OTHER, MEDICAID ==
[2023-07-30 15:06] LABS: BASOPHILS # (AUTO) 0.1 10^3/uL (0.0-0.1); BASOPHILS % (AUTO) 0.6 %; EOSINOPHILS # (AUTO) 0.1 10^3/uL (0.0-0.7); EOSINOPHILS % (AUTO) 1.2 %; HCT - HEMATOCRIT 41.5 % (37.0-47.0); HGB - HEMOGLOBIN 12.7 g/dL (12.0-16.0); LYMPHOCYTES # (AUTO) 2.3 10^3/uL (1.5-3.5); LYMPHOCYTES % (AUTO) 29.3 %; MEAN CORPUSCULAR HEMOGLOBIN 29.1 pg (27.0-31.0); MEAN CORPUSCULAR HGB CONC 30.6 g/dL (32.0-36.0); MEAN CORPUSCULAR VOLUME 95.2 fL (81.0-99.0); MEAN PLATELET VOLUME 10.2 fL (7.9-10.8); MONOCYTES # (AUTO) 0.6 10^3/uL (0.0-1.0); MONOCYTES % (AUTO) 8.1 %; NEUTROPHILS # (AUTO) 4.7 10^3/uL (1.5-6.6); NEUTROPHILS % (AUTO) 60.2 %; PLT - PLATELET COUNT 208 10^3/uL (130-450); RED BLOOD COUNT 4.36 10^6/uL (4.20-5.40); RED CELL DISTRIBUTION WIDTH 13.6 % (12.0-15.0); WHITE BLOOD COUNT 7.8 x10^3/uL (4.8-10.8)
[2023-07-30 15:09] LABS: SLIDE REVIEW? Indicated
[2023-07-30 15:24] LABS: ALBUMIN 3.5 g/dL (3.2-5.5); ALBUMIN/GLOBULIN RATIO 1.3 (1.0-2.2); ALKALINE PHOSPHATASE 49 IU/L (42-121); ALT ALANINE AMINOTRANSFERASE < 3 IU/L (10-60); AST ASPARTATE AMINOTRANSFERASE 13 IU/L (10-42); BILIRUBIN,TOTAL 0.3 mg/dL (0.2-1.0); BUN - BLOOD UREA NITROGEN 27 mg/dL (6-20); CALCIUM 9.5 mg/dL (8.5-10.3); CARBON DIOXIDE - CO2 29 mmol/L (21-32); CHLORIDE 102 mmol/L (101-111); CREATININE 0.8 mg/dL (0.6-1.3); GFR - MDRD 68 (>89); GLUCOSE 162 mg/dL (74-104); POTASSIUM 3.7 mmol/L (3.5-4.5); SODIUM 141 mmol/L (135-145); TOTAL PROTEIN 6.2 g/dL (6.4-8.9)
[2023-07-30 16:21] LABS: PLATELET ESTIMATE, MANUAL NORMAL (130-450,000) (NORMAL); PLATELET MORPHOLOGY NORMAL APPEARANCE (NORMAL); RBC MORPHOLOGY (MULTIPLE) NORMAL APPEARANCE (NORMAL)
== END 2023-07-30 14:56 | disposition home or self-care (01) ==
LOC: LAB.R 14:55
PROVIDERS: ATTEND Registered Nurse
DX: I48.0 Paroxysmal atrial fibrillation (principal); D50.9 Iron deficiency anemia, unspecified
CPT/HCPCS: 80053; 85025

== ENCOUNTER 2023-08-01 08:00 | Outpatient (CLI) | payer MEDICARE, OTHER, MEDICAID ==
[2023-08-01 06:40] LABS: BILIRUBIN,URINE NEGATIVE (NEGATIVE); GLUCOSE, URINE (UA) NEGATIVE (NEGATIVE); KETONES,URINE (UA) NEGATIVE (NEGATIVE); LEUKOCYTE ESTERASE, URINE SMALL (NEGATIVE); NITRITE,URINE NEGATIVE (NEGATIVE); OCCULT BLOOD,URINE SMALL (NEGATIVE); PROTEIN,URINE NEGATIVE (NEGATIVE); UROBILINOGEN,URINE 0.2 (NORMAL) E.U./dL (NORMAL)
[2023-08-01 06:49] LABS: CLARITY,URINE SL. CLOUDY (CLEAR)
[2023-08-01 06:51] LABS: RBC,URINE 0-5 /HPF (0-5)
[2023-08-01 06:52] LABS: BACTERIA,URINE Many /HPF (None Seen); SQUAMOUS EPITHELIAL CELL,UR FEW Squamous (<= Few)
== END 2023-08-01 23:59 | disposition home or self-care (01) ==
LOC: LAB.R 08:00
PROVIDERS: ATTEND Registered Nurse
DX: N39.0 Urinary tract infection, site not specified (principal)
CPT/HCPCS: 81001; 87077; 87086; 87181

== ENCOUNTER 2023-08-22 08:00 | Outpatient (CLI) | payer MEDICARE, OTHER, MEDICAID ==
[2023-08-22 16:58] LABS: BASOPHILS % (AUTO) 0.6 %; EOSINOPHILS # (AUTO) 0.1 10^3/uL (0.0-0.7); EOSINOPHILS % (AUTO) 1.9 %; HCT - HEMATOCRIT 40.3 % (37.0-47.0); HGB - HEMOGLOBIN 12.5 g/dL (12.0-16.0); LYMPHOCYTES # (AUTO) 2.4 10^3/uL (1.5-3.5); LYMPHOCYTES % (AUTO) 38.4 %; MEAN CORPUSCULAR HEMOGLOBIN 29.6 pg (27.0-31.0); MEAN CORPUSCULAR VOLUME 95.3 fL (81.0-99.0); MEAN PLATELET VOLUME 9.6 fL (7.9-10.8); MONOCYTES # (AUTO) 0.5 10^3/uL (0.0-1.0); MONOCYTES % (AUTO) 7.9 %; NEUTROPHILS # (AUTO) 3.2 10^3/uL (1.5-6.6); NEUTROPHILS % (AUTO) 50.9 %; PLT - PLATELET COUNT 221 10^3/uL (130-450); RED BLOOD COUNT 4.23 10^6/uL (4.20-5.40); RED CELL DISTRIBUTION WIDTH 13.8 % (12.0-15.0); WHITE BLOOD COUNT 6.4 x10^3/uL (4.8-10.8)
[2023-08-22 17:08] LABS: ALBUMIN 3.5 g/dL (3.2-5.5); ALBUMIN/GLOBULIN RATIO 1.3 (1.0-2.2); BILIRUBIN,TOTAL 0.3 mg/dL (0.2-1.0); CALCIUM 9.7 mg/dL (8.5-10.3); CREATININE 0.8 mg/dL (0.6-1.3); MAGNESIUM 2.2 mg/dL (1.7-2.3); POTASSIUM 4.1 mmol/L (3.5-4.5); TOTAL PROTEIN 6.2 g/dL (6.4-8.9)
[2023-08-22 17:26] LABS: FERRITIN 61.1 ng/mL (11.0-306.8)
== END 2023-08-22 23:59 | disposition home or self-care (01) ==
LOC: LAB.R 08:00
PROVIDERS: ATTEND Registered Nurse
DX: I11.9 Hypertensive heart disease without heart failure (principal); D50.9 Iron deficiency anemia, unspecified; E56.9 Vitamin deficiency, unspecified
CPT/HCPCS: 80053; 82728; 83735; 85025

== ENCOUNTER 2023-09-04 08:00 | Outpatient (CLI) | payer OTHER ==
[2023-09-04 19:28] LABS: BILIRUBIN,URINE NEGATIVE (NEGATIVE); GLUCOSE, URINE (UA) NEGATIVE (NEGATIVE); KETONES,URINE (UA) NEGATIVE (NEGATIVE); LEUKOCYTE ESTERASE, URINE MODERATE (NEGATIVE); NITRITE,URINE POSITIVE (NEGATIVE); OCCULT BLOOD,URINE NEGATIVE (NEGATIVE); PH,URINE 6.5 PH (5.0-7.5); PROTEIN,URINE NEGATIVE (NEGATIVE); UROBILINOGEN,URINE 0.2 (NORMAL) E.U./dL (NORMAL)
[2023-09-04 19:29] LABS: CLARITY,URINE HAZY (CLEAR)
[2023-09-04 19:40] LABS: AMORPHOUS SEDIMENT,UR Few /LPF; BACTERIA,URINE Moderate /HPF (None Seen); RBC,URINE 0-5 /HPF (0-5); SQUAMOUS EPITHELIAL CELL,UR FEW Squamous (<= Few)
== END 2023-09-04 23:59 | disposition home or self-care (01) ==
LOC: LAB.R 08:00
PROVIDERS: ATTEND Registered Nurse
DX: N39.0 Urinary tract infection, site not specified (principal)
CPT/HCPCS: 81001; 87086

== ENCOUNTER 2023-09-04 13:36 | Outpatient (CLI) | payer OTHER ==
[2023-09-04 13:41] LABS: BASOPHILS % (AUTO) 0.5 %; EOSINOPHILS # (AUTO) 0.1 10^3/uL (0.0-0.7); EOSINOPHILS % (AUTO) 1.7 %; HCT - HEMATOCRIT 37.9 % (37.0-47.0); LYMPHOCYTES # (AUTO) 1.7 10^3/uL (1.5-3.5); LYMPHOCYTES % (AUTO) 28.5 %; MEAN CORPUSCULAR HEMOGLOBIN 29.1 pg (27.0-31.0); MEAN CORPUSCULAR HGB CONC 31.7 g/dL (32.0-36.0); MEAN CORPUSCULAR VOLUME 91.8 fL (81.0-99.0); MEAN PLATELET VOLUME 9.3 fL (7.9-10.8); MONOCYTES # (AUTO) 0.5 10^3/uL (0.0-1.0); MONOCYTES % (AUTO) 8.7 %; NEUTROPHILS # (AUTO) 3.6 10^3/uL (1.5-6.6); NEUTROPHILS % (AUTO) 60.3 %; PLT - PLATELET COUNT 254 10^3/uL (130-450); RED BLOOD COUNT 4.13 10^6/uL (4.20-5.40); RED CELL DISTRIBUTION WIDTH 13.5 % (12.0-15.0)
[2023-09-04 13:58] LABS: CALCIUM 9.5 mg/dL (8.5-10.3); CREATININE 0.8 mg/dL (0.6-1.3); POTASSIUM 3.9 mmol/L (3.5-4.5)
== END 2023-09-04 13:37 | disposition home or self-care (01) ==
LOC: LAB.R 13:36
PROVIDERS: ATTEND Registered Nurse
DX: R60.9 Edema, unspecified (principal); I48.0 Paroxysmal atrial fibrillation
CPT/HCPCS: 80048; 85025

== ENCOUNTER 2023-12-25 08:00 | Outpatient (CLI) | payer OTHER ==
[2023-12-25 18:28] LABS: BILIRUBIN,URINE NEGATIVE (NEGATIVE); GLUCOSE, URINE (UA) NEGATIVE (NEGATIVE); KETONES,URINE (UA) NEGATIVE (NEGATIVE); LEUKOCYTE ESTERASE, URINE LARGE (NEGATIVE); NITRITE,URINE POSITIVE (NEGATIVE); OCCULT BLOOD,URINE MODERATE (NEGATIVE); PH,URINE 6.5 PH (5.0-7.5); PROTEIN,URINE NEGATIVE (NEGATIVE); UROBILINOGEN,URINE 0.2 (NORMAL) E.U./dL (NORMAL)
[2023-12-25 18:38] LABS: CLARITY,URINE CLOUDY (CLEAR)
[2023-12-25 19:05] LABS: BACTERIA,URINE Many /HPF (None Seen); SQUAMOUS EPITHELIAL CELL,UR FEW Squamous (<= Few)
== END 2023-12-25 23:59 | disposition home or self-care (01) ==
LOC: LAB.R 08:00
DX: N39.0 Urinary tract infection, site not specified (principal)
CPT/HCPCS: 81001; 81003; 87086